=== PATIENT | female | born 1940 | race Caucasian/White ===

== ENCOUNTER 2017-11-25 22:51 | Emergency (ER) | payer MEDICARE, OTHER ==
[2017-11-25 23:29] LABS: BASO % 0.5 % (0.0-1.0); EOS # 0.3 10^3/uL (0.0-0.50); HEMATOCRIT 40.3 % (36.0-47.0); HEMOGLOBIN 13.5 g/dl (12.0-16.0); IMMATURE GRANULOCYTE % 0.3 % (0-3.0); LYMPH # 2.3 10^3/uL (1.5-4.5); LYMPH % 31.5 % (24.0-44.0); MEAN CORPUSCULAR HGB CONC 33.5 g/dl (32.0-36.5); MEAN CORPUSCULAR VOLUME 95.5 fl (80.0-96.0); MONO # 0.7 10^3/uL (0.0-0.8); MONO % 9.8 % (0.0-5.0); NEUTROPHILS # 3.9 10^3/uL (1.8-7.7); NEUTROPHILS % 53.9 % (36.0-66.0); PLATELET COUNT, AUTOMATED 194 10^3/uL (150-450); RED BLOOD COUNT 4.22 10^6/uL (4.00-5.40); RED CELL DISTRIBUTION WIDTH 12.1 % (11.5-14.5); WHITE BLOOD COUNT 7.3 10^3/uL (4.0-10.0)
[2017-11-25 23:36] LABS: BEDSIDE GLUCOSE 184 MG/DL (83-110)
[2017-11-25 23:44] LABS: INR 1.04; PROTHROMBIN TIME 13.7 SECONDS (12.4-14.5)
[2017-11-25 23:54] LABS: ANION GAP 5 MEQ/L (8-16); BLOOD UREA NITROGEN 27 MG/DL (7-18); CALCIUM LEVEL 9.5 MG/DL (8.8-10.2); CARBON DIOXIDE LEVEL 33 MEQ/L (21-32); CHLORIDE LEVEL 103 MEQ/L (98-107); CK-MB VALUE MASS 4.5 NG/ML (0.0-3.6); CPK CREATINE PHOSPHOKINASE 111 U/L (26-192); CREATININE FOR GFR 1.22 MG/DL (0.55-1.30); GLOMERULAR FILTRATION RATE 45.4 (>39); GLUCOSE, FASTING 185 MG/DL (70-100); MB/CK RELATIVE INDEX 4.05 (< OR =4); POTASSIUM SERUM 3.8 MEQ/L (3.5-5.1); SODIUM LEVEL 141 MEQ/L (136-145); TROPONIN I < 0.02 NG/ML (< 0.10)
[2017-11-25] MEDS ORDERED: ALTEPLASE 100MG INJ (J2997) As Ordered (23:54)
== END 2017-11-26 01:14 | disposition short-term general hospital (02) ==
LOC: M ED 22:51
DX: I63.9 Cerebral infarction, unspecified (principal); I10 Essential (primary) hypertension; I25.10 Atherosclerotic heart disease of native coronary artery without angina pectoris; Z95.5 Presence of coronary angioplasty implant and graft; Z79.899 Other long term (current) drug therapy; Z79.01 Long term (current) use of anticoagulants; Z79.890 Hormone replacement therapy
CPT/HCPCS: 71045

== ENCOUNTER → 2017-12-08 | Outpatient (REF) | payer MEDICARE, OTHER ==
[2017-12-08 13:28] LABS: HEMATOCRIT 38.5 % (36.0-47.0); HEMOGLOBIN 13.2 g/dl (12.0-16.0); MEAN CORPUSCULAR HEMOGLOBIN 31.8 pg (27.0-33.0); MEAN CORPUSCULAR HGB CONC 34.3 g/dl (32.0-36.5); MEAN CORPUSCULAR VOLUME 92.8 fl (80.0-96.0); PLATELET COUNT, AUTOMATED 339 10^3/uL (150-450); RED BLOOD COUNT 4.15 10^6/uL (4.00-5.40); RED CELL DISTRIBUTION WIDTH 11.9 % (11.5-14.5); WHITE BLOOD COUNT 10.3 10^3/uL (4.0-10.0)
[2017-12-08 13:50] LABS: ANION GAP 12 MEQ/L (8-16); BLOOD UREA NITROGEN 21 MG/DL (7-18); CALCIUM LEVEL 9.1 MG/DL (8.8-10.2); CARBON DIOXIDE LEVEL 26 MEQ/L (21-32); CHLORIDE LEVEL 101 MEQ/L (98-107); CREATININE FOR GFR 0.77 MG/DL (0.55-1.30); GLOMERULAR FILTRATION RATE > 60.0 (>39); GLUCOSE, FASTING 253 MG/DL (70-100); POTASSIUM SERUM 4.4 MEQ/L (3.5-5.1); SODIUM LEVEL 139 MEQ/L (136-145); URIC ACID 2.2 MG/DL (2.6-6.0)
== END ==
DX: M25.572 Pain in left ankle and joints of left foot (principal)
CPT/HCPCS: 84550

== ENCOUNTER → 2017-12-13 | Outpatient (REF) ==
[2017-12-13 13:37] LABS: HEMATOCRIT 38.9 % (36.0-47.0); MEAN CORPUSCULAR HGB CONC 33.4 g/dl (32.0-36.5); MEAN CORPUSCULAR VOLUME 92.8 fl (80.0-96.0); PLATELET COUNT, AUTOMATED 388 10^3/uL (150-450); RED BLOOD COUNT 4.19 10^6/uL (4.00-5.40); RED CELL DISTRIBUTION WIDTH 11.7 % (11.5-14.5); WHITE BLOOD COUNT 9.7 10^3/uL (4.0-10.0)
[2017-12-13 14:03] LABS: ANION GAP 8 MEQ/L (8-16); BLOOD UREA NITROGEN 17 MG/DL (7-18); CARBON DIOXIDE LEVEL 30 MEQ/L (21-32); CHLORIDE LEVEL 100 MEQ/L (98-107); CREATININE FOR GFR 0.68 MG/DL (0.55-1.30); GLOMERULAR FILTRATION RATE > 60.0 (>39); GLUCOSE, FASTING 165 MG/DL (70-100); POTASSIUM SERUM 3.8 MEQ/L (3.5-5.1); SODIUM LEVEL 138 MEQ/L (136-145)
== END ==
DX: L03.90 Cellulitis, unspecified (principal)

== ENCOUNTER → 2018-01-10 | Outpatient (REF) | DX: I25.10 Atherosclerotic heart disease of native coronary artery without angina pectoris (principal) ==

== ENCOUNTER 2018-01-27 15:04 | Outpatient (RCR) | payer MEDICARE, OTHER | END 2018-02-23 | disposition home or self-care (01) | LOC: M ST 15:04 → M OT 02-07 13:43 → M PT 02-13 13:39 → M OT 02-15 13:28 → M PT 02-22 15:15 → M ST 02-01 12:49 → M OT 02-07 13:43 → M PT 02-13 13:39 → M OT 02-15 13:28 → M PT 02-22 15:15 | DX: Z51.89 Encounter for other specified aftercare (principal); I63.312 Cerebral infarction due to thrombosis of left middle cerebral artery; I69.351 Hemiplegia and hemiparesis following cerebral infarction affecting right dominant side; R47.01 Aphasia | CPT/HCPCS: 97110 ==

== ENCOUNTER 2018-03-06 12:52 | Outpatient (RCR) | payer MEDICARE, OTHER | END 2018-03-25 | LOC: M OT 12:52 → M PT 03-13 13:53 → M ST 03-15 13:00 → M OT 03-16 10:30 → M ST 03-21 13:39 → M OT 03-24 10:27 → M ST 03-15 13:00 → M OT 03-16 10:30 → M ST 03-23 10:22 → M OT 03-22 10:30 | DX: Z51.89 Encounter for other specified aftercare (principal); I63.312 Cerebral infarction due to thrombosis of left middle cerebral artery; I69.351 Hemiplegia and hemiparesis following cerebral infarction affecting right dominant side; I69.120 Aphasia following nontraumatic intracerebral hemorrhage | CPT/HCPCS: 97110 ==

== ENCOUNTER 2018-03-28 15:27 | Outpatient (RCR) | payer MEDICARE, OTHER | END 2018-04-25 | LOC: M OT 15:27 | DX: Z51.89 Encounter for other specified aftercare (principal); I63.312 Cerebral infarction due to thrombosis of left middle cerebral artery; I69.351 Hemiplegia and hemiparesis following cerebral infarction affecting right dominant side; I69.120 Aphasia following nontraumatic intracerebral hemorrhage | CPT/HCPCS: 97110 ==

== ENCOUNTER → 2018-04-05 | Outpatient (REF) | payer MEDICARE, OTHER | LOC: M LAB REF 13:24 | DX: N39.0 Urinary tract infection, site not specified (principal) | CPT/HCPCS: 87086 ==

== ENCOUNTER → 2019-04-25 | Outpatient (RCR) | payer MEDICARE, OTHER ==
[~2019-04-25] MED LIST: AMLO5TAB6 PO; ATEN25TA PO; BONI1TAB PO; CHLO125TA PO; ELIQ2.5T PO; GABA-845 PO; LEVO75TA4 PO; METF500T13 PO; SERT25TA85 PO; VALS1TAB68 PO; VITA200028 PO; ZANT150T40 PO
== END ==
LOC: M PT 04-04 14:31 → M ST 04-18 12:24 → M PT 12:08
PROVIDERS: ATTEND Nurse Practitioner Family
DX: Z51.89 Encounter for other specified aftercare (principal); I63.9 Cerebral infarction, unspecified; R13.10 Dysphagia, unspecified

== ENCOUNTER 2019-05-25 11:45 | Outpatient (RCR) | payer MEDICARE, OTHER | END 2019-05-26 | LOC: M PT 11:45 | PROVIDERS: ATTEND Nurse Practitioner Family | DX: Z51.89 Encounter for other specified aftercare (principal); I63.9 Cerebral infarction, unspecified; I69.391 Dysphagia following cerebral infarction ==

== ENCOUNTER 2019-06-22 15:15 | Outpatient (RCR) | payer MEDICARE, OTHER | END 2019-06-25 | LOC: M PT 15:15 | PROVIDERS: ATTEND Nurse Practitioner Family | DX: I63.9 Cerebral infarction, unspecified (principal) ==

== ENCOUNTER 2019-07-20 15:15 | Outpatient (RCR) | payer MEDICARE, OTHER | END 2019-07-26 | LOC: M PT 15:15 | PROVIDERS: ATTEND Nurse Practitioner Family | DX: I69.30 Unspecified sequelae of cerebral infarction (principal) ==

== ENCOUNTER → 2020-03-31 | Outpatient (REF) | payer MEDICARE, OTHER ==
[~2020-03-31] MED LIST changes: +ACET650T61 PO; +AMLO1TAB24 PO; -AMLO5TAB6 PO; +ATOR40TA75 PO; +AVAP75TA7 PO; +CIPR-250 PO; +D31000TA2 PO; +ECOT81TA5 PO; +FURO20TA2 PO; +JARD1TAB PO; +METO1TAB32 PO; +POTA8CAP10 PO; +SYNT50TA PO; +VITA200048 PO; +VITA500C24 PO
[2020-04-01 15:39] LABS: PERCENT SATURATION 33.5 % (13.2-45.0)
== END ==
LOC: M LAB REF 12:23
PROVIDERS: ATTEND Internal Medicine
DX: R74.8 Abnormal levels of other serum enzymes (principal)

== ENCOUNTER 2020-06-13 20:29 | Inpatient (IN) | payer MEDICARE, OTHER ==
[2020-06-13] VITALS (9 sets, daily range): BP systolic 123–181; BP diastolic 65–81
[~2020-06-13] VITALS: Ht 149.9 cm; Wt 47.6 kg
[~2020-06-13 20:29] MED LIST changes: -ACET650T61 PO; -ATOR40TA75 PO; -AVAP75TA7 PO; -CIPR-250 PO; -D31000TA2 PO; -ECOT81TA5 PO; -FURO20TA2 PO; -JARD1TAB PO; -METO1TAB32 PO; -POTA8CAP10 PO; -SYNT50TA PO; -VITA200048 PO; -VITA500C24 PO
[2020-06-13] MEDS ORDERED: SYNT50TA PO (21:00)
[2020-06-13] MEDS ORDERED: METO1TAB32 PO (21:00)
[2020-06-13] MEDS ORDERED: POTA8CAP10 PO (21:00)
[2020-06-13] MEDS ORDERED: ECOT81TA5 PO (21:00)
[2020-06-13] MEDS ORDERED: JARD1TAB PO (21:00)
[2020-06-13] MEDS ORDERED: VITAMIN D 1,000 INTERNATIONAL UNITS TABLET PO SCH (21:00)
[2020-06-13] MEDS ORDERED: HumaLOG INSULIN (NovoLOG) PER UNIT SC SCH (21:00)
[2020-06-13] MEDS ORDERED: VITA500C24 PO (21:00)
[2020-06-13] MEDS ORDERED: VITA200048 PO (21:00)
[2020-06-13] MEDS ORDERED: ACET650T61 PO (21:00)
[2020-06-13] MEDS ORDERED: AVAP75TA7 PO (21:00)
[2020-06-13] MEDS ORDERED: METF500T13 PO (21:00)
[2020-06-13] MEDS ORDERED: FURO20TA2 PO (21:00)
[2020-06-13] MEDS ORDERED: ATOR40TA75 PO (21:00)
--- NOTE | 2020-06-13 21:15 | REPVR ---
PROCEDURE INFORMATION: Exam: CT Head Without Contrast Exam date and time: 06/13/2020 8:57 PM Age: 80 years old Clinical indication: Weakness, facial; Additional info: Neuro symptoms TECHNIQUE: Imaging protocol: Computed tomography of the head without contrast. Radiation optimization: All CT scans at this facility use at least one of these dose optimization techniques: automated exposure control; mA and/or kV adjustment per patient size (includes targeted exams where dose is matched to clinical indication); or iterative reconstruction. COMPARISON: CT Head without contrast 11/25/2017 11:00 PM FINDINGS: Brain: Moderately advanced cerebral atrophy. Moderate cerebellar atrophy. Patchy low-density in the periventricular white matter extending into lynn radiata and centrum semiovale bilaterally. Subcortical infarct left frontal lobe. No hemorrhage. No mass effect. Midline structures intact. Ventricles: No ventriculomegaly. Bones/joints: Unremarkable. No acute fracture. Paranasal sinuses: Visualized sinuses are unremarkable. No fluid levels. Mastoid air cells: Visualized mastoid air cells are well aerated. Soft tissues: Unremarkable. IMPRESSION: 1. No acute findings. 2. Moderately advanced cerebral atrophy and chronic microvascular ischemic change within the deep white matter. These findings have progressed when compared with the previous study. Electronically signed by: Radha Wilson On 06/13/2020 21:15:38 PM
[2020-06-13] MEDS ORDERED: LABETALOL 100MG/20ML VIAL IV STA (21:18)
[2020-06-13 21:32] LABS: BASO % 0.2 % (0.0-1.0); EOS # 0.2 10^3/uL (0.0-0.5); EOS % 0.9 % (0.0-3.0); HEMATOCRIT 44.6 % (36.0-47.0); HEMOGLOBIN 15.1 g/dl (12.0-15.5); LYMPH # 1.1 10^3/uL (1.5-5.0); LYMPH % 6.8 % (24.0-44.0); MEAN CORPUSCULAR HGB CONC 33.9 g/dl (32.0-36.5); MEAN CORPUSCULAR VOLUME 97.6 fl (80.0-96.0); MONO # 0.8 10^3/uL (0.0-0.8); MONO % 4.8 % (0.0-5.0); NEUTROPHILS # 14.1 10^3/uL (1.5-8.5); NEUTROPHILS % 86.9 % (36.0-66.0); PLATELET COUNT, AUTOMATED 198 10^3/uL (150-450); RED BLOOD COUNT 4.57 10^6/uL (4.00-5.40); WHITE BLOOD COUNT 16.2 10^3/uL (4.0-10.0)
[2020-06-13 21:36] LABS: INR 1.18; PROTHROMBIN TIME 15.3 SECONDS (12.5-14.3)
[2020-06-13 21:37] LABS: PARTIAL THROMBOPLASTIN TIME 26.8 SECONDS (24.2-38.5)
[2020-06-13 21:41] LABS: CK-MB VALUE MASS 1.9 NG/ML (<3.6); MB/CK RELATIVE INDEX 3.17 (< OR =4); TROPONIN I 0.02 NG/ML (< 0.10)
--- NOTE | 2020-06-13 22:09 | REPVR ---
PROCEDURE INFORMATION: Exam: XR Chest, 1 View Exam date and time: 06/13/2020 9:18 PM Age: 80 years old Clinical indication: Other: CVA TECHNIQUE: Imaging protocol: XR of the chest Views: 1 view. COMPARISON: CR PORTABLE CHEST X-RAY 11/25/2017 11:21 PM FINDINGS: Tubes, catheters and devices: External monitoring devices present. Lungs: Unremarkable. No consolidation. Pleural space: Unremarkable. No pleural effusion. No pneumothorax. Heart/Mediastinum: Mild enlargement of cardiac silhouette. Vasculature: Ectasia of the thoracic aorta. Bones/joints: Apparent S-shaped scoliosis of thoracolumbar spine Degenerative changes noted of the right glenohumeral joint with superior migration of the humeral head and large marginal osteophytes. IMPRESSION: No acute findings Electronically signed by: Radha Wilson On 06/13/2020 22:09:16 PM
[2020-06-13] MEDS: METOPROLOL 5 MG/5 ML VIAL IV SCH ×3 (22:20→22:52)
[2020-06-13] MEDS ORDERED: GLUCOSE 4GM CHEW TABLET PO PRN (23:30)
[2020-06-13] MEDS ORDERED: DEXTROSE 50% 50 ML SYRINGE IV PRN (23:30)
[2020-06-13] MEDS ORDERED: ACETAMINOPHEN TAB 650MG DOSE (2X325MG) PO PRN (23:30)
[2020-06-13] MEDS ORDERED: GLUCAGON INJ 1MG VIAL SC PRN (23:30)
[2020-06-13] MEDS ORDERED: D31000TA2 PO (23:33)
[2020-06-14] VITALS: BP 147/76
[2020-06-14 00:15] VITALS: BP 146/80
[2020-06-14 00:40] VITALS: BP 143/82
[2020-06-14] MEDS ORDERED: diphenhydrAMINE 25MG CAP PO PRN (01:15)
--- NOTE | 2020-06-14 02:33 | HPEPDOC ---
General Date of Admission Jun 13, 2020 at 23:25 Date of Service: Jun 14, 2020 Attending Physician: ALBANIA REILLY MD Chief Complaint The patient is a 80-year-old female admitted with a reason for visit of Cva, Hypertensive Emergency. 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 Her son was present when he symptoms begun and he suspected that she may be having a stroke and brought her to the ED. In the ED, her symptoms persisted and initial BP was 200/100s and in Afib with R VR. She was given metop 5mg IV with improvement of her HR to 90s and while in the ED, her symptoms were noted to improve drastically and BP normalized without further intervention. She had a head CT that showed no acute intracranial pathology with mild cerebral atrophy and chronic microvascular ischemic changes within the deep white matter while a CXR so no acute cardiopulmonary pathology. WBC was 16.2, hgb 15.1, platelets 198, EKG non ischemic with Afib, troponin negative, Na 139, K 3.5, BUN 26, Cr 1, glucose 176. By the time of my evaluation her symptoms had mostly resolved with baseline mild R sided deficits with a mild R facial droop and slight slurring of her words but coherent. She is now being admitted to medicine for a TIA. Home Medications Scheduled Apixaban (Eliquis) 2.5 Mg Tab, 2.5 MG PO BID, (Reported) Ascorbic Acid (Vitamin C) 500 Mg Capsule, 500 MG PO DAILY, (Reported) Aspirin (Ecotrin) 81 Mg Tablet.dr, 81 MG PO DAILY, (Reported) Atorvastatin Calcium (Atorvastatin Calcium) 40 Mg Tablet, 40 MG PO QPM, (Reported) Cholecalciferol (Vitamin D3) (Vitamin D3) 1,000 Unit Tablet, 2,000 UNITS PO QPM, (Reported) Empagliflozin (Jardiance) 10 Mg Tablet, 10 MG PO QPM, (Reported) Furosemide (Furosemide) 20 Mg Tablet, 20 MG PO DAILY, (Reported) Irbesartan (Avapro) 75 Mg Tablet, 75 MG PO DAILY, (Reported) Levothyroxine Sodium (Synthroid) 50 Mcg Tablet, 50 MCG PO DAILY, (Reported) Metformin HCl (Metformin HCl) 500 Mg Tablet, 500 MG PO QPM, (Reported) Metoprolol Succinate (Metoprolol Succinate) 25 Mg Tab.er.24h, 25 MG PO DAILY, (Reported) Potassium Chloride (Potassium Chloride) 8 Meq Capsule.er, 8 MEQ PO DAILY, (Reported) Scheduled PRN Acetaminophen (Tylenol Arthritis) 650 Mg Tablet.er, 650 MG PO Q8H PRN for PAIN, (Reported) Allergies Coded Allergies: No Known Allergies (Unverified , 11/25/17) Past Medical History Medical History Prior CVA in 2017 with residual mild R sided weakness and uses at cane at baseline CAD s/p remote PCI History of kidney stones Afib on eliquis Surgical History prior PCI Family History Significant Family History: No pertinent family hx Social History * Smoker: Denies Alcohol: Denies Drugs: denies Recent Travel/Sick Contacts: Denies: Recent travel, Recent sick contacts Psychosocial History: No pertinent psych hx Lives at home Uses cane at baseline A-FIB/CHADSVASC A-FIB History Current/History of A-Fib/PAF?: Yes Current PO Anticoag Therapy: Yes Treatment Treatment ordered: Apixaban Review of Systems Constitutional: Denies: Chills, Fever, Night Sweats Eyes: Denies: Pain, Vision change ENT: Denies: Head Aches, Ear Pain, Dysphagia Skin: Denies: Rash, Lesions, Breakdown Pulmonary: Denies: Dyspnea, Cough Cardiovascular: Denies: Chest Pain, Palpitations, Orthopnea, Paroxysmal Noc. Dyspnea, Lt Headedness Gastrointestinal: Denies: Nausea, Vomiting, Abdominal Pain, Diarrhea Genitourinary: Denies: Dysuria, Frequency, Incontinence, Retention Hematologic: Denies: Bruising, Bleeding Excessively Endocrine: Denies: Polydipsia, Polyphagia, Polyuria, Heat Intolerance, Cold Intolerance, Other Endocrine Sx Musculoskeletal: Denies: Neck Pain, Back Pain, Joint Pain, Muscle Pain, Spasms Neurological: Reports: Weakness (Acute on chronic R sided weakness), Incoordination, Change in speech (slurring) Psych: Reports: Mood Normal; Denies: Depression, Memory Issues Physical Examination General Exam: Positive: Alert, No Acute Distress Eye Exam: Positive: PERRLA, Conjunctiva & lids normal, EOMI; Negative: Sclera icteric ENT Exam: Positive: Atraumatic, Mucous membr. moist/pink, Pharynx Normal Neck Exam: Positive: Supple; Negative: JVD, thyromegaly Chest Exam: Positive: Clear to auscultation, Normal air movement Heart Exam: Positive: Rate Normal, Irregular Rhythm, Normal S1, Normal S2; Negative: Murmurs, Rubs Telemetry: Positive: Atrial fibrillation Abdomen Exam: Positive: Normal bowel sounds, Soft; Negative: Tenderness, Hepatospenomegaly Extremity Exam: Positive: Normal pulses; Negative: Clubbing, Cyanosis, Edema, Tenderness, Swelling Skin Exam: Positive: Nl turgor and temperature; Negative: Breakdown, Lesion Neuro Exam: Positive: Strength at 5/5 X4 ext ( mild R sided weakness 4/5 strength in RUE), Sensation Intact, Cranial Nerves 3-12 NL; Negative: Normal Speech (slight slurring but much clearer, coherent) Psych Exam: Positive: Mental status NL, Mood NL, Oriented x 3 Vital Signs Vital Signs Date Time Temp Pulse Resp B/P (MAP) Pulse Ox O2 Delivery O2 Flow Rate FiO2 06/14/20 00:16 99 95 06/14/20 00:15 146/80 06/13/20 21:20 98.8 16 Room Air Laboratory Data Labs 24H Laboratory Tests 2 06/13/20 21:02: Immature Granulocyte % (Auto) 0.4, Neutrophils (%) (Auto) 86.9H, Lymphocytes (%) (Auto) 6.8L, Monocytes (%) (Auto) 4.8, Eosinophils (%) (Auto) 0.9, Basophils (%) (Auto) 0.2, Neutrophils # (Auto) 14.1H, Lymphocytes # (Auto) 1.1L, Monocytes # (Auto) 0.8, Eosinophils # (Auto) 0.2, Basophils # (Auto) 0.0, Nucleated Red Blood Cells % (auto) 0.0, Prothrombin Time 15.3H, Prothromb Time International Ratio 1.18, Activated Partial Thromboplast Time 26.8, Total Creatine Kinase 60, Creatine Kinase MB 1.9, Creatine Kinase MB Relative Index 3.17, Troponin I 0.02 06/13/20 21:04: POC Glucose (Misc Panel) 176H, POC Sodium (Misc Panel) 139, POC Potassium (Misc Panel) 3.5, POC Chloride (Misc Panel) 100, POC Total CO2 (Misc Panel) 26.0, POC Blood Urea Nitrogen (Misc Panel 26, POC Ionized Calcium (Misc Panel) 4.9, POC Creatinine (Misc Panel) 1.0, POC Hematocrit (Misc Panel) 46.0 06/13/20 21:54: Bedside Glucose (Misc Panel) 169H, POC Prothrombin Time (Misc) 14.9H, POC INR (Misc) 1.3 06/14/20 01:02: Bedside Glucose (Misc Panel) 221H CBC/BMP Laboratory Tests 06/13/20 21:02 Assessment/Plan 80 yo W with a 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 TIA with a history of remote CVA: -CT head without acute intracranial abnormalities -MRI/MRA brain w/o contrast -carotid US --Q4H neuro checks -telemetry -TTE w/ bubble study -continue eliquis -PT/OT eval Afib with RVR: improved -s/p metop IV x 1 -continue home metop succinate 25mg QD -continue 2.5mg eliquis BID -telemetry Hypertensive urgency: resolved -continue home metop succinate Leukocytosis: suspect it to be reactive with no fever or reported symptoms -will monitor for now -CXR without acute pathology -UA CAD: no evidence of ACS -EKG non ischemic, telemetry with Afib, now rate controlled, troponin negative DVT ppx: eliquis Plan / VTE VTE Prophylaxis Ordered?: Yes ALBANIA REILLY MD Jun 14, 2020 02:33
[2020-06-14 06:00] VITALS: BP 141/84
[2020-06-14] MEDS ORDERED: LEVOTHYROXINE 50MCG TABLET (0.05MG) PO SCH (06:00)
[2020-06-14] MEDS: HumaLOG INSULIN (NovoLOG) PER UNIT SC SCH ×2 (07:49→11:54)
[2020-06-14 07:51] VITALS: BP 142/85
[2020-06-14 08:30] LABS: HEMOGLOBIN 13.4 g/dl (12.0-15.5); MEAN CORPUSCULAR HEMOGLOBIN 33.5 pg (27.0-33.0); MEAN CORPUSCULAR HGB CONC 34.4 g/dl (32.0-36.5); MEAN CORPUSCULAR VOLUME 97.5 fl (80.0-96.0); PLATELET COUNT, AUTOMATED 167 10^3/uL (150-450); WHITE BLOOD COUNT 19.9 10^3/uL (4.0-10.0)
[2020-06-14 08:39] LABS: CALCIUM LEVEL 9.5 MG/DL (8.8-10.2); CREATININE FOR GFR 1.11 MG/DL (0.55-1.30); GLOMERULAR FILTRATION RATE 50.2 (>32); MAGNESIUM LEVEL 2.1 MG/DL (1.8-2.4)
[2020-06-14] MEDS ORDERED: FUROSEMIDE 20 MG TAB PO SCH (09:00)
[2020-06-14] MEDS ORDERED: ASCORBIC ACID 500 MG TAB PO SCH (09:00)
[2020-06-14] MEDS ORDERED: APIXABAN 2.5 MG TAB (ELIQUIS) PO SCH (09:00)
[2020-06-14] MEDS ORDERED: ASPIRIN 81 MG ENTERIC TAB PO SCH (09:00)
[2020-06-14] MEDS ORDERED: METOPROLOL SUCC *XL* 25MG TAB (TopROL *XL*) PO SCH (09:00)
[2020-06-14] MEDS ORDERED: POTASSIUM CHLORIDE 10 MEQ SR TABLET PO SCH (09:00)
[2020-06-14] MEDS ORDERED: cefTRIAXone SOD 1 GM in D5W MINI-BAG PLUS 50 ML IV SCH (11:00)
--- NOTE | 2020-06-14 12:12 | ECGEPIP ---
[facility] - ED Test Date: 2020-06-13 Pat Name: HARJINDER SU Department: Room: A5168-52 Gender: Female Gun [employer]: ROMAN : 1940 Requested By: JANESSA Castro Order Number: [id number] Reading MD: James Castro Measurements Intervals [place] Rate: 111 P: AR: 0 QRS: -53 QRSD: 91 T: 110 QT: 321 QTc: 438 Interpretive Statements SINUS TACHYCARDIA ANTERIOR INFARCT, OLD INFERIOR MYOCARDIAL INFARCTION, PROBABLY OLD WITH POSTERIOR EXTENSION MODERATE T-WAVE ABNORMALITY, CONSIDER LATERAL ISCHEMIA RHYTHM/RATE CHANGE COMPARED TO 11/25/17 Electronically Signed on 06-14-2020 12:12:48 EDT by James Castro
[2020-06-14 14:00] VITALS: BP 138/82
[2020-06-14] MEDS ORDERED: CIPR-250 PO ×2 (14:46→16:54)
--- NOTE | 2020-06-14 16:36 | REPVR ---
PROCEDURE INFORMATION: Exam: MR Head Without Contrast Exam date and time: 06/14/2020 4:28 PM Age: 80 years old Clinical indication: Speech disturbance; Patient HX: Slurred speech HX TIA TECHNIQUE: Imaging protocol: MR of the head without contrast. COMPARISON: CT Head without contrast 06/13/2020 8:53 PM FINDINGS: Brain: Nonspecific T2 hyperintensities of the periventricular and deep subcortical white matter, most likely secondary to chronic small vessel ischemic change. No evidence of acute intracranial hemorrhage or extra-axial fluid collection. No evidence of mass effect or midline shift. No restricted diffusion to suggest acute infarct. Ventricles: Mild prominence of the ventricles and sulci, likely attributed to parenchymal volume loss. Bones/joints: Unremarkable. Sinuses: Unremarkable. Mastoid air cells: No mastoid effusion. Orbits: Unremarkable. Soft tissues: Unremarkable. IMPRESSION: 1. No acute intracranial pathology. 2. Other chronic findings, as above. Electronically signed by: Ron Braxton On 06/14/2020 16:35:51 PM
--- NOTE | 2020-06-14 16:39 | REPVR ---
PROCEDURE INFORMATION: Exam: MR Angiogram Head Without Contrast, Arteries Exam date and time: 06/14/2020 4:28 PM Age: 80 years old Clinical indication: Speech disturbance; Patient HX: Slurred speech HX TIA TECHNIQUE: Imaging protocol: MR angiogram head without contrast. Exam focused on the arteries. 3D rendering (Not supervised by radiologist): MIP and/or 3D reconstructed images were created by the technologist. COMPARISON: CT Head without contrast 06/13/2020 8:53 PM FINDINGS: ANTERIOR CIRCULATION: Right internal carotid artery: Intracranial segment is patent with no significant stenosis. No aneurysm. Right middle cerebral artery: No occlusion or significant stenosis. No aneurysm. Right anterior cerebral artery: No occlusion or significant stenosis. No aneurysm. Left internal carotid artery: Intracranial segment is patent with no significant stenosis. No aneurysm. Left middle cerebral artery: No occlusion or significant stenosis. No aneurysm. Left anterior cerebral artery: No occlusion or significant stenosis. No aneurysm. POSTERIOR CIRCULATION: Right vertebral artery: Near complete absence of flow related enhancement within the mid to superior portions of the intracranial right vertebral artery. Left vertebral artery: Complete absence of flow related enhancement within the intracranial left vertebral artery. Basilar artery: Diminished flow related enhancement within the basilar artery. Right posterior cerebral artery: Patent and type right posterior cerebral artery. No aneurysm. Left posterior cerebral artery: Patent and type left posterior cerebral artery. No aneurysm. IMPRESSION: Combination of complete absence of flow related enhancement in the left intracranial vertebral artery, near complete absence of flow related enhancement in the mid to superior right vertebral artery, as well as diminished flow related enhancement within the basilar artery is concerning for possible areas of severe stenosis and/or occlusion involving these posterior circulation arteries, however differential also includes anatomically small caliber vessels due to presence of prominent bilateral type supervisor powder and primer canning. Recommend follow-up CTA head. Electronically signed by: Ron Braxton On 06/14/2020 16:38:58 PM
--- NOTE | 2020-06-14 18:54 | REPVR ---
PROCEDURE INFORMATION: Exam: US Duplex Bilateral Extracranial Arteries Exam date and time: 06/14/2020 3:38 PM Age: 80 years old Clinical indication: Other: TIA TECHNIQUE: Imaging protocol: Real-time Duplex ultrasound scan of the bilateral carotid and vertebral arteries combining ayon scale, color Doppler and spectral waveform analysis. Bilateral exam. COMPARISON: CT Head without contrast 06/13/2020 8:53 PM FINDINGS: Right common carotid artery: Unremarkable. No occlusion or stenosis. Waveforms are normal. Right internal carotid artery: Mild atherosclerotic changes.. No occlusion or stenosis. Waveforms are normal. Right ICA/CCA ratio: Within normal limits. 2.28 Right external carotid artery: No stenosis in the origin. Right vertebral artery: Unremarkable. Antegrade flow. Left common carotid artery: Unremarkable. No occlusion or stenosis. Waveforms are normal. Left internal carotid artery: Mild atherosclerotic changes.. No occlusion or stenosis. Waveforms are normal. Left ICA/CCA ratio: Within normal limits. 1.83 Left external carotid artery: No stenosis in the origin. Left vertebral artery: Biphasic flow. IMPRESSION: 1. Mild bilateral atherosclerotic changes in the proximal internal carotid arteries resulting in an under 50% or mild stenosis bilaterally. 2. Normal flow in the right vertebral artery. Biphasic flow in the left vertebral artery may indicate intermittent subclavian steal. 3. Decreased velocities demonstrated in the right and left carotid arteries may be related to low cardiac output. Clinical correlation suggested. REFERENCES: SRU CRITERIA. The degree of internal carotid artery stenosis is based on criteria defined by the Society of Radiologists in Ultrasound (SRU). Normal is no stenosis. Mild is less than 50% stenosis. Moderate is 50-69% stenosis. Severe is greater than 69% stenosis to near occlusion. Near occlusion is a markedly narrowed lumen. Total occlusion is no detectable patent lumen. Electronically signed by: Reno Clark On 06/14/2020 18:54:34 PM
[2020-06-14] MEDS ORDERED: ATORVASTATIN 20 MG TAB PO SCH (21:00)
[2020-06-14] MEDS ORDERED: VITAMIN D 1,000 INTERNATIONAL UNITS TABLET PO SCH (21:00)
--- NOTE | 2020-06-17 07:17 | ECHO ---
DATE OF PROCEDURE: 06/14/2020 Gender: Male Height: 148 cm Weight: 46 kg REFERRING PHYSICIAN: Dr. Barber INDICATION: Transient ischemic attack (TIA), hypertensive urgency. MEASUREMENTS: IVS 0.9 cm LV 3.2 cm LVPW 1.0 cm LA 3.7 cm Aorta 3.2 cm RV 2.0 IVC 1.8 cm Mitral E wave velocity 79 Mitral A wave velocity 60 E prime septal 5.3 E prime lateral 5.9 FINDINGS: This study is of good technical quality. Patient is in sinus rhythm. Left ventricle is normal size and systolic function. Estimated LVEF 65% to 70%. Right ventricle appears normal. Both atria appear normal. Aortic valve is minimally sclerotic, but has three cusps and preserved mobility. There are also minimal degenerative abnormalities of the mitral valve with mitral annular calcifications. Mobility of leaflets is preserved. Tricuspid valve appears normal. Pulmonic valve was not well seen. No pericardial effusion is noted. Inferior vena cava is normal size. Aortic root appears normal. Aortic arch and abdominal aorta were not well seen. Doppler interrogation of the aortic valve reveals no stenosis or insufficiency. There is trace mitral and trace tricuspid insufficiency. Calculated pulmonary artery pressure is within normal limits. Mitral inflow pattern, tissue Doppler imaging of mitral annulus revealed grade 2 diastolic dysfunction. Injection of agitated saline reveals no evidence for intracardiac shunt - negative "bubble study. CONCLUSIONS: 1. Study is of good technical quality. Patient is in sinus rhythm. 2. Normal left ventricle (LV) size with preserved left ventricle (LV) systolic function and likely grade 2 diastolic dysfunction. 3. No significant valvular disease. 4. Normal central venous pressure and likely normal pulmonary artery pressure. 5. Negative bubble study. [facility]
--- NOTE | 2020-06-26 10:18 | IPN ---
DATE: 06/14/2020 Patient seen and examined at the bedside. Chart has been reviewed. Denies any upper or lower extremity weakness, paresthesias. No expressive aphasia. No changes in vision. No difficulty finding words. CT head negative for acute cerebrovascular accident (CVA). VITAL SIGNS: Temperature 97.9, pulse 94, respiratory rate 16, blood pressure 141/84, 97% on room air. Admission blood pressure 210/104. GENERAL: Awake, alert, oriented to person, place, and time, answering questions appropriately. No facial asymmetry. Tongue is midline. Speaks in full sentences. Speech is fluent. No conversational dyspnea. No tripod positioning. LUNGS: Clear to auscultation. No wheezing, rales, or rhonchi. HEART: S1, S2, sinus rhythm. ABDOMEN: Soft, nontender, nondistended. Positive bowel sounds. EXTREMITIES: No cyanosis, clubbing, or pitting edema. White count 19.9, hemoglobin 13, hematocrit 39, platelet count 167. Sodium 138, potassium 4, chloride 102, bicarbonate 26, BUN 25, creatinine 1.1, glucose 229. Urinalysis: Cloudy. Glucose 3+. Positive nitrites. Leukocyte esterase 2+, 81 WBC, 1+ bacteremia. IMAGING STUDIES: Chest x-ray June 13: No acute findings. CT of the head: No acute CVA. Moderately advanced cerebral atrophy and chronic microvascular ischemic change have progressed when compared with previous study. ASSESSMENT AND PLAN: An 80-year-old female, admitted due to: 1. Hypertensive urgency. 2. History of coronary artery disease (CAD) with residual mild right-sided weakness. Uses a cane at baseline. 3. History of CAD, status post percutaneous coronary intervention (PCI). 4. History of atrial fibrillation, on chronic Eliquis. 5. Urinary tract infection. PLAN: Patient has an MRI/MRA, physical therapy (PT)/occupational therapy (OT), acute rehabilitation unit (ARU), neurologic checks. Blood pressure is doing well. currently on Lasix, Toprol. Adjust if needed. Await urine culture result. If cleared by therapy, may be discharged home today. [facility]
--- NOTE | 2020-06-30 11:54 | DS ---
DATE OF ADMISSION: 06/14/2020 DATE OF DISCHARGE: 06/14/2020 PRIMARY DISCHARGE DIAGNOSES: * Hypertensive urgency. * CVA ruled out. * History of CAD, remote PCI. * History of atrial fibrillation on chronic Eliquis, compliant with Eliquis, has not missed any doses. * History of kidney stones. * Urinary tract infection present on admission. * Uncontrolled diabetes. DISCHARGE MEDICATIONS: * Cipro 250 b.i.d. for three days. * Acetaminophen 650 q.8 as needed. * Eliquis 2.5 b.i.d. * Vitamin C 500 mg daily. * Aspirin 81 daily. * Atorvastatin 40 daily. * Vitamin D 2,000 units daily. * Jardiance 10 mg q.p.m. * Lasix 20 daily. * Irbesartan 75 daily. * Synthroid 50 daily. * Metformin 500 daily. * Metoprolol 25 daily. * Potassium 8 mEq daily. HOSPITAL COURSE: This is an 80-year-old female compliant with her Eliquis who presents to the emergency room with complaints of slurred speech. Found to have hypertensive urgency with systolic blood pressure of 200 and diastolic of 100 with atrial fibrillation with RVR. Patient responded to metoprolol 5 mg IV with heart rate decreasing to 90. She was evaluated with CT of the head which showed mild cerebellar atrophy and chronic microvascular ischemic changes within deep white matter. Chest x-ray had no cardiopulmonary pathology. White count was 16,000. Patient was found to have abnormal urinalysis and given intravenous ceftriaxone. Urine culture is pending. Patient had no fever or chills. Denies any dysuria, urgency, frequency, or flank pain. Patient passed home safety evaluation. MRI of the brain was negative. 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 Differential includes anatomically small caliber vessels due to presence of prominent bilateral -type food cart attendant. Recommend follow up CTA of the head. Since the patient has resolution of her clinical symptoms and CT of the head and MRI of the brain are negative for acute CVA, the family decided not to pursue further imaging studies as patient is currently back to baseline. She will follow up with her primary care physician and neurologist as outpatient within 5-7 days of hospital discharge. PHYSICAL EXAMINATION: Temperature 98.6, pulse 60, respiratory rate 18, blood pressure 138/82, 95% on room air. Generally: Face is symmetric. Tongue is midline. Awake, alert, oriented, conversing appropriately. Patient has no expressive aphasia. No word finding difficulties. Face is symmetric. Tongue is midline. No pronator drift, horizontal or vertical nystagmus. Motor function is 5/5 in all four extremities. No sensory disturbance. Lungs are clear to auscultation. No wheezing, rales, or rhonchi. Heart: S1 and S2, irregularly irregular. Abdomen is soft, nontender, nondistended. Positive bowel sounds. No CVA tenderness. Extremities: No cyanosis, clubbing, or pitting edema. LABORATORY DATA: White count 19.9, hemoglobin 13, hematocrit 39, platelet count 167. Sodium 138, potassium 4, chloride 102, bicarb 26, BUN 25, creatinine 1.11, glucose 229, calcium 9.5, magnesium 2.1. Troponin 0.02. Microbiology: Urine culture is pending. Imaging study 06/13/2020, CT of the head, no acute findings, moderate advanced cerebral atrophy and chronic microvascular ischemic change within the deep white matter. Chest x-ray: No acute cardiopulmonary disease. MRI of the brain: No acute CVA. MRA of the brain: Differential includes presence of prominent bilateral -type SUPPORT WORKER versus complete absence of flow in the left intracranial vertebral artery into the mid superior right vertebral artery with basal artery possible stenosis or occlusion of the posterior circulation arteries. Recommend follow up CT of the head. DISCHARGE INSTRUCTIONS: Patient is to have immediate follow up with her neurologist to determine the need for a CVA. Patient clinically is back to baseline. Has no neurologic defects and currently has a normal MRI of the brain without acute CVA. TIME SPENT ON DISCHARGE: 30 minutes. [facility]
== END 2020-06-14 17:18 | disposition home or self-care (01) | DRG 309 ==
LOC: M ED 20:29 → M ED INP 23:25 → ENRESERV 23:55 → M MSPAV 06-14 00:26
PROVIDERS: ADMIT Internal Medicine; ATTEND Internal Medicine
DX: I48.91 Unspecified atrial fibrillation (principal); G45.9 Transient cerebral ischemic attack, unspecified; I69.351 Hemiplegia and hemiparesis following cerebral infarction affecting right dominant side; I16.0 Hypertensive urgency; Z79.82 Long term (current) use of aspirin; Z79.899 Other long term (current) drug therapy; Z79.01 Long term (current) use of anticoagulants; I25.10 Atherosclerotic heart disease of native coronary artery without angina pectoris; Z87.442 Personal history of urinary calculi; D72.829 Elevated white blood cell count, unspecified

== ENCOUNTER → 2021-03-10 | Outpatient (REF) | payer MEDICARE, OTHER ==
[~2021-03-10] MED LIST changes: +ACET650T61 PO; +ATOR40TA75 PO; +AVAP75TA7 PO; +CIPR-250 PO; +D31000TA2 PO; +ECOT81TA5 PO; +FURO20TA2 PO; +GABA-283 PO; -GABA-845 PO; +JARD1TAB PO; +METO1TAB32 PO; +POTA8CAP10 PO; +SYNT50TA PO; +VITA200048 PO; +VITA500C24 PO
== END ==
LOC: M LAB REF 12:18
PROVIDERS: ATTEND Internal Medicine
DX: R30.0 Dysuria (principal)

== ENCOUNTER → 2021-04-21 | Outpatient (REF) | payer MEDICARE, OTHER | LOC: M LAB REF 17:12 | PROVIDERS: ATTEND Internal Medicine | DX: R35.0 Frequency of micturition (principal) ==

== ENCOUNTER → 2021-08-06 | Outpatient (CLI) | payer MEDICARE, OTHER ==
--- NOTE | 2021-08-06 11:12 | REP ---
INDICATION: CHF. COMPARISON: 06/13/2020 TECHNIQUE: Two views of the chest were obtained. FINDINGS: The extensive scoliosis is again noted. No acute parenchymal opacification or effusion is currently present. The heart is not enlarged and no evidence of pulmonary vascular redistribution is identified. IMPRESSION: Extensive levorotary scoliosis of the thoracolumbar spine. 2. Unremarkable chest films with no evidence of failure at this time. <Electronically signed by Logan Huston > 08/06/21 [id number]
[2021-08-06 16:13] LABS: ALBUMIN 3.7 GM/DL (3.2-5.2); CALCIUM LEVEL 9.7 MG/DL (8.8-10.2); CREATININE FOR GFR 1.19 MG/DL (0.55-1.30); GLOMERULAR FILTRATION RATE 46.2 (>32); PHOSPHORUS LEVEL 3.1 MG/DL (2.5-4.9); POTASSIUM SERUM 4.1 MEQ/L (3.5-5.1)
== END ==
LOC: M WUC 10:47
PROVIDERS: ATTEND Internal Medicine Cardiovascular Disease
DX: M41.25 Other idiopathic scoliosis, thoracolumbar region (principal); I50.32 Chronic diastolic (congestive) heart failure

== ENCOUNTER → 2021-08-06 | Outpatient (CLI) | payer MEDICARE, OTHER ==
--- NOTE | 2021-08-06 12:54 | REP ---
INDICATION: PAIN IN LEFT LEG-WILL CALL FOR NEW STAT ORDER. COMPARISON: None TECHNIQUE: Multiple ultrasonographic images of the deep venous structures of the bilateral thighs were obtained from the level of the common femoral vein to the popliteal vein in the longitudinal and transverse scan planes along with Doppler interrogation and color flow Doppler imaging. Calf veins are also examined with compression ultrasound. FINDINGS: There is no abnormal echogenic material seen within any of the visualized deep venous structures from the groin through the popliteal fossa that would suggest acute thrombosis. Coaptation is unremarkable throughout. Doppler interrogation shows an expected response to respiratory variability and augmentation. The color flow Doppler images show what appears to be a normal vascular pattern throughout. Tibial and peroneal veins showed the compressibility on the right but were unable to be visualized on the left due to extremity edema. IMPRESSION: There is no ultrasonographic evidence of deep venous thrombosis involving any of the visualized deep venous structures of the bilateral thighs and the right calf. Left calf veins could not be seen due to edema. As described above. Accredited by the [employer] in Vascular Peripheral Ultrasound. <Electronically signed by Sundeep Irving > 08/06/21 [id number]
== END ==
LOC: M RAD 12:09
PROVIDERS: ATTEND Internal Medicine Cardiovascular Disease
DX: M79.605 Pain in left leg (principal); R60.0 Localized edema; M41.25 Other idiopathic scoliosis, thoracolumbar region; I50.32 Chronic diastolic (congestive) heart failure

== ENCOUNTER 2021-08-15 15:52 | Inpatient (IN) | payer MEDICARE, OTHER ==
[~2021-08-15] VITALS: Ht 147.3 cm; Wt 47.3 kg
[2021-08-15] MEDS ORDERED: TORS20TA2 (16:07)
[2021-08-15] MEDS ORDERED: SPIR-10 PO (16:07)
[2021-08-15] MEDS ORDERED: GABA-282 PO (16:07)
[2021-08-15] MEDS ORDERED: VALS40TA9 (16:07)
[2021-08-15] MEDS ORDERED: SYNT75TA PO (16:07)
[2021-08-15 17:38] LABS: BASO % 0.4 % (0.0-1.0); EOS # 0.3 10^3/uL (0.0-0.5); EOS % 3.5 % (0.0-3.0); HEMATOCRIT 35.1 % (36.0-47.0); HEMOGLOBIN 11.7 g/dl (12.0-15.5); LYMPH # 2.6 10^3/uL (1.5-5.0); LYMPH % 26.5 % (24.0-44.0); MEAN CORPUSCULAR HEMOGLOBIN 33.8 pg (27.0-33.0); MEAN CORPUSCULAR HGB CONC 33.3 g/dl (32.0-36.5); MEAN CORPUSCULAR VOLUME 101.4 fl (80.0-96.0); MONO # 1.1 10^3/uL (0.0-0.8); MONO % 11.7 % (2.0-8.0); NEUTROPHILS # 5.6 10^3/uL (1.5-8.5); NEUTROPHILS % 57.7 % (36.0-66.0); PLATELET COUNT, AUTOMATED 184 10^3/uL (150-450); RED BLOOD COUNT 3.46 10^6/uL (4.00-5.40); WHITE BLOOD COUNT 9.8 10^3/uL (4.0-10.0)
[2021-08-15 17:43] LABS: INR 1.24
[2021-08-15 17:50] LABS: CALCIUM LEVEL 9.6 MG/DL (8.8-10.2); CREATININE FOR GFR 1.2 MG/DL (0.55-1.30); GLOMERULAR FILTRATION RATE 45.8 (>32); POTASSIUM SERUM 4.1 MEQ/L (3.5-5.1)
[2021-08-15] MEDS ORDERED: cefTRIAXone SOD 1 GM in D5W MINI-BAG PLUS 50 ML IV ONE (18:45)
[2021-08-15] MEDS ORDERED: ATOR1TAB21 PO (18:49)
[2021-08-15] MEDS ORDERED: LABETALOL 100MG/20ML VIAL IV STA (19:03)
[2021-08-15] MEDS ORDERED: SITA50TAB PO (19:36)
[2021-08-15] MEDS ORDERED: ESSE250T PO (19:36)
[2021-08-15] MEDS ORDERED: HOME MED LIST COMPLETE! XX SCH (19:40)
[2021-08-15 19:41] LABS: RSV AMPLIFICATION NEGATIVE (NEGATIVE)
[2021-08-15] MEDS ORDERED: MAALOX 30 ML SUSP *UDC PO PRN (21:25)
[2021-08-15] MEDS ORDERED: MOM 30ML SUSPENSION UDC PO PRN (21:25)
[2021-08-15] MEDS ORDERED: ENALAPRILAT INJ 2.5MG/2ML VIAL IV ONE (23:25)
[2021-08-16] MEDS: APIXABAN 2.5 MG TAB (ELIQUIS) PO SCH ×3 (02:34→20:15)
[2021-08-16] MEDS: GABAPENTIN 300 MG CAP PO SCH ×2 (02:34→20:16)
[2021-08-16 05:08] LABS: HEMOGLOBIN 10.8 g/dl (12.0-15.5); MEAN CORPUSCULAR HEMOGLOBIN 33.2 pg (27.0-33.0); MEAN CORPUSCULAR HGB CONC 33.8 g/dl (32.0-36.5); MEAN CORPUSCULAR VOLUME 98.5 fl (80.0-96.0); PLATELET COUNT, AUTOMATED 175 10^3/uL (150-450); RED BLOOD COUNT 3.25 10^6/uL (4.00-5.40)
[2021-08-16 05:26] LABS: INR 1.31; PROTHROMBIN TIME 16.7 SECONDS (12.7-14.5)
[2021-08-16 05:27] LABS: HEMOGLOBIN A1c 6.2 %; PARTIAL THROMBOPLASTIN TIME 35.7 SECONDS (25.9-37.0)
[2021-08-16 05:41] LABS: BLOOD UREA NITROGEN 19 MG/DL (7-18); CALCIUM LEVEL 9.2 MG/DL (8.8-10.2); CARBON DIOXIDE LEVEL 24 MEQ/L (21-32); CHLORIDE LEVEL 106 MEQ/L (98-107); CREATININE FOR GFR 0.94 MG/DL (0.55-1.30); GLOMERULAR FILTRATION RATE > 60.0 (>32); GLUCOSE, FASTING 179 MG/DL (70-100); POTASSIUM SERUM 4.1 MEQ/L (3.5-5.1); SODIUM LEVEL 137 MEQ/L (136-145)
[2021-08-16 06:51] LABS: HEMOGLOBIN A1c 6.2 %
[2021-08-16] MEDS: VITAMIN D 1,000 INTERNATIONAL UNITS TABLET PO SCH ×2 (07:41→18:25)
[2021-08-16] MEDS ORDERED: METOPROLOL SUCC *XL* 25MG TAB (TopROL *XL*) PO SCH (09:00)
[2021-08-16] MEDS: ASPIRIN 81MG ENTERIC TABLET PO SCH (09:05)
[2021-08-16] MEDS: SPIRONOLACTONE 12.5MG PER 1/2 TABLET PO SCH (09:05)
[2021-08-16] MEDS: LEVOTHYROXINE 75MCG TABLET (0.075MG) PO SCH (10:01)
[2021-08-16 12:27] LABS: HEMATOCRIT 33.8 % (36.0-47.0); HEMOGLOBIN 11.3 g/dl (12.0-15.5)
[2021-08-16 13:19] VITALS: BP 186/98
[2021-08-16] MEDS: hydrALAZINE 20MG/ML 1ML VIAL (J0360 PER 20MG) IV PRN (13:32)
[2021-08-16] MEDS: amLODIPine 5 MG TAB PO SCH (14:49)
[2021-08-16] MEDS: ACETAMINOPHEN TAB 650MG DOSE (2X325MG) PO PRN (15:48)
[2021-08-16 16:00] VITALS: BP 146/74
[2021-08-16 18:27] LABS: HEMATOCRIT 33.5 % (36.0-47.0); HEMOGLOBIN 11.4 g/dl (12.0-15.5)
[2021-08-16 20:00] VITALS: BP 151/75
[2021-08-16] MEDS: ATORVASTATIN 20 MG TAB PO SCH (20:15)
[2021-08-17] VITALS (12 sets, daily range): BP systolic 133–190; BP diastolic 63–90
[2021-08-17 01:08] LABS: HEMOGLOBIN 11.3 g/dl (12.0-15.5)
[2021-08-17] MEDS: hydrALAZINE 20MG/ML 1ML VIAL (J0360 PER 20MG) IV PRN (04:12)
[2021-08-17] MEDS ORDERED: hydrALAZINE 20MG/ML 1ML VIAL (J0360 PER 20MG) IV ONE (05:10)
[2021-08-17 05:21] LABS: BASO # 0.1 10^3/uL (0.0-0.2); BASO % 0.5 % (0.0-1.0); EOS # 0.4 10^3/uL (0.0-0.5); EOS % 3.8 % (0.0-3.0); HEMATOCRIT 34.1 % (36.0-47.0); HEMOGLOBIN 11.6 g/dl (12.0-15.5); LYMPH # 2.6 10^3/uL (1.5-5.0); LYMPH % 28.5 % (24.0-44.0); MEAN CORPUSCULAR HEMOGLOBIN 33.5 pg (27.0-33.0); MEAN CORPUSCULAR VOLUME 98.6 fl (80.0-96.0); MONO # 0.9 10^3/uL (0.0-0.8); NEUTROPHILS # 5.2 10^3/uL (1.5-8.5); NEUTROPHILS % 56.9 % (36.0-66.0); PLATELET COUNT, AUTOMATED 181 10^3/uL (150-450); RED BLOOD COUNT 3.46 10^6/uL (4.00-5.40); WHITE BLOOD COUNT 9.2 10^3/uL (4.0-10.0)
[2021-08-17 05:43] LABS: BLOOD UREA NITROGEN 16 MG/DL (7-18); CALCIUM LEVEL 9.2 MG/DL (8.8-10.2); CARBON DIOXIDE LEVEL 25 MEQ/L (21-32); CHLORIDE LEVEL 106 MEQ/L (98-107); CREATININE FOR GFR 0.86 MG/DL (0.55-1.30); GLOMERULAR FILTRATION RATE > 60.0 (>32); GLUCOSE, FASTING 174 MG/DL (70-100); POTASSIUM SERUM 4.4 MEQ/L (3.5-5.1); SODIUM LEVEL 138 MEQ/L (136-145)
[2021-08-17] MEDS: LEVOTHYROXINE 75MCG TABLET (0.075MG) PO SCH (05:45)
[2021-08-17] MEDS: amLODIPine 5 MG TAB PO SCH (07:40)
[2021-08-17] MEDS: ASPIRIN 81MG ENTERIC TABLET PO SCH (08:05)
[2021-08-17] MEDS: APIXABAN 2.5 MG TAB (ELIQUIS) PO SCH ×2 (08:06→19:45)
[2021-08-17] MEDS: SPIRONOLACTONE 12.5MG PER 1/2 TABLET PO SCH (08:06)
[2021-08-17] MEDS: METOPROLOL SUCC (TopROL XL) 50MG **XL** TAB PO SCH (08:06)
[2021-08-17] MEDS ORDERED: FLUBLOK(EGG FREE)(QUAD)INFLUENZA VACC 0.5ML SYRINGE 18YRS & OLDER IM ONE (09:00)
[2021-08-17] MEDS: ACETAMINOPHEN TAB 650MG DOSE (2X325MG) PO PRN (09:09)
[2021-08-17 10:48] LABS: CA 125 15.8 U/ML (<30.2); CA19-9 TUMOR MARKER,CARBOHYDRA 12.8 U/ML (<35.0)
[2021-08-17] MEDS: VITAMIN D 1,000 INTERNATIONAL UNITS TABLET PO SCH (17:39)
[2021-08-17] MEDS: ATORVASTATIN 20 MG TAB PO SCH (19:44)
[2021-08-17] MEDS: GABAPENTIN 300 MG CAP PO SCH (19:44)
[2021-08-18] MEDS: LEVOTHYROXINE 75MCG TABLET (0.075MG) PO SCH (05:41)
[2021-08-18] MEDS: ACETAMINOPHEN TAB 650MG DOSE (2X325MG) PO PRN (05:42)
[2021-08-18 06:00] VITALS: BP 111/70
[2021-08-18 06:36] LABS: BASO # 0.1 10^3/uL (0.0-0.2); BASO % 0.5 % (0.0-1.0); EOS # 0.4 10^3/uL (0.0-0.5); EOS % 3.8 % (0.0-3.0); HEMATOCRIT 34.9 % (36.0-47.0); HEMOGLOBIN 11.5 g/dl (12.0-15.5); LYMPH # 2.7 10^3/uL (1.5-5.0); LYMPH % 27.2 % (24.0-44.0); MEAN CORPUSCULAR HEMOGLOBIN 32.7 pg (27.0-33.0); MEAN CORPUSCULAR VOLUME 99.1 fl (80.0-96.0); MONO % 10.3 % (2.0-8.0); NEUTROPHILS # 5.8 10^3/uL (1.5-8.5); NEUTROPHILS % 57.8 % (36.0-66.0); PLATELET COUNT, AUTOMATED 182 10^3/uL (150-450); RED BLOOD COUNT 3.52 10^6/uL (4.00-5.40); WHITE BLOOD COUNT 10.1 10^3/uL (4.0-10.0)
[2021-08-18 07:04] LABS: CALCIUM LEVEL 9.4 MG/DL (8.8-10.2); CREATININE FOR GFR 0.95 MG/DL (0.55-1.30); MAGNESIUM LEVEL 2.1 MG/DL (1.8-2.4); POTASSIUM SERUM 4.5 MEQ/L (3.5-5.1)
[2021-08-18 09:05] VITALS: BP 111/70
[2021-08-18] MEDS: SPIRONOLACTONE 12.5MG PER 1/2 TABLET PO SCH (09:05)
[2021-08-18] MEDS: ASPIRIN 81MG ENTERIC TABLET PO SCH (09:05)
[2021-08-18] MEDS: APIXABAN 2.5 MG TAB (ELIQUIS) PO SCH (09:05)
[2021-08-18] MEDS: amLODIPine 5 MG TAB PO SCH (09:05)
[2021-08-18] MEDS: METOPROLOL SUCC (TopROL XL) 50MG **XL** TAB PO SCH (09:05)
[2021-08-18] MEDS ORDERED: METO1TAB7 PO (16:07)
[2021-08-18] MEDS ORDERED: LISI10TA22 PO (16:07)
[2021-08-18] MEDS ORDERED: SENO8.6T10 PO (16:19)
[2021-08-18] MEDS ORDERED: CIPR-250 PO (16:19)
[2021-08-18 16:34] VITALS: BP 127/66
[2021-11-06] MEDS ORDERED: METO1TAB32 PO (10:57)
[2021-11-06] MEDS ORDERED: VITMTA PO (10:57)
== END 2021-08-18 18:00 | disposition home health service (06) | DRG 305 ==
LOC: M ED 15:52 → M ED INP 21:25 → M PCU 08-16 13:09 → M MS5PR 08-17 20:48
PROVIDERS: ADMIT Internal Medicine; ATTEND Internal Medicine
DX: I16.0 Hypertensive urgency (principal); I50.32 Chronic diastolic (congestive) heart failure; I48.20 Chronic atrial fibrillation, unspecified; N39.0 Urinary tract infection, site not specified; N95.0 Postmenopausal bleeding; I11.0 Hypertensive heart disease with heart failure; C54.1 Malignant neoplasm of endometrium; E03.9 Hypothyroidism, unspecified; E11.9 Type 2 diabetes mellitus without complications; Z95.2 Presence of prosthetic heart valve; I25.10 Atherosclerotic heart disease of native coronary artery without angina pectoris; F01.50 Vascular dementia, unspecified severity, without behavioral disturbance, psychotic disturbance, mood disturbance, and anxiety; Z79.899 Other long term (current) drug therapy; Z79.82 Long term (current) use of aspirin; Z79.01 Long term (current) use of anticoagulants

== ENCOUNTER → 2021-11-06 | Outpatient (CLI) | payer MEDICARE, OTHER ==
[~2021-11-06] MED LIST changes: +ATOR1TAB21 PO; +ESSE250T PO; +GABA-282 PO; +LISI10TA22 PO; +METO1TAB7 PO; +SENO8.6T10 PO; +SITA50TAB PO; +SPIR-10 PO; +SYNT75TA PO; +TORS20TA2; +VALS40TA9; +VITMTA PO
== END ==
LOC: M LABSMTC 09:35
PROVIDERS: ATTEND Anesthesiology
DX: Z01.812 Encounter for preprocedural laboratory examination (principal); Z20.822 Contact with and (suspected) exposure to COVID-19

== ENCOUNTER 2021-11-11 11:26 | Day surgery (SDC) | payer MEDICARE, OTHER ==
[~2021-11-11] VITALS: Ht 147.3 cm; Wt 43.1 kg
[~2021-11-11 11:26] MED LIST changes: +ACETAMINOPHEN *IV* 1,000 MG IV ONE; +LR 1,000 ML IV ONE
[2021-11-11 12:09] LABS: HEMATOCRIT 49.4 % (36.0-47.0); HEMOGLOBIN 15.8 g/dl (12.0-15.5); MEAN CORPUSCULAR HEMOGLOBIN 31.4 pg (27.0-33.0); MEAN CORPUSCULAR VOLUME 98.2 fl (80.0-96.0); PLATELET COUNT, AUTOMATED 173 10^3/uL (150-450); RED BLOOD COUNT 5.03 10^6/uL (4.00-5.40); WHITE BLOOD COUNT 12.9 10^3/uL (4.0-10.0)
[2021-11-11 12:32] LABS: CALCIUM LEVEL 10.2 MG/DL (8.8-10.2); CREATININE FOR GFR 1.01 MG/DL (0.55-1.30); GLOMERULAR FILTRATION RATE 55.9 (>32); POTASSIUM SERUM 3.9 MEQ/L (3.5-5.1)
[2021-11-11] MEDS ORDERED: ONDANSETRON 4MG/2ML VIAL As Ordered ONE (12:46)
[2021-11-11] MEDS ORDERED: ACETAMINOPHEN 1000MG 100ML IV BTL (OFIRMEV) (J0131 PER 10MG) As Ordered ONE (12:46)
[2021-11-11] MEDS ORDERED: dexameTHASONE 4 MG/ML 1ML VIAL (J1100 PER 1MG) As Ordered ONE (12:46)
[2021-11-11] MEDS ORDERED: fentaNYL 100 MCG/2 ML INJECTION As Ordered ONE (12:46)
[2021-11-11] MEDS ORDERED: LIDOCAINE 2% 100MG/5ML SDV (FOR ANES.) As Ordered ONE (12:46)
[2021-11-11] MEDS ORDERED: propofoL 200 MG/20 ML VIAL As Ordered ONE (12:46)
[2021-11-11] MEDS ORDERED: oxyCODONE 5MG TAB PO PRN (14:20)
[2021-11-11] MEDS ORDERED: fentaNYL 100 MCG/2 ML INJECTION IV PRN (14:20)
[2021-11-11] MEDS ORDERED: LR 1,000 ML IV SCH ×2 (14:20→14:25)
[2021-11-11] MEDS ORDERED: ONDANSETRON 4MG/2ML VIAL IV PRN (14:20)
[2021-11-11] MEDS ORDERED: ACETAMINOPH W/CODEINE #3 TAB UD PO PRN (14:25)
[2021-11-11 15:30] VITALS: BP 150/76
== END 2021-11-11 15:45 | disposition home or self-care (01) ==
LOC: M SDC 11:26
PROVIDERS: ATTEND Obstetrics & Gynecology
DX: N95.0 Postmenopausal bleeding (principal); N36.2 Urethral caruncle; N85.8 Other specified noninflammatory disorders of uterus; I48.20 Chronic atrial fibrillation, unspecified; I10 Essential (primary) hypertension; E11.9 Type 2 diabetes mellitus without complications; E03.9 Hypothyroidism, unspecified; E78.5 Hyperlipidemia, unspecified; Z79.899 Other long term (current) drug therapy
CPT/HCPCS: 36415; 58558; 80048; 85027; 86850; 86900; 86901; 87070; 87075; 87077; 87088; 87186; 88108; 88305; J0131; J1100; J2405; J3010

== ENCOUNTER 2021-12-11 13:53 | Inpatient (IN) | payer MEDICARE, OTHER ==
[~2021-12-11] VITALS: Ht 147.3 cm; Wt 46.7 kg
[~2021-12-11 13:53] MED LIST changes: -ACETAMINOPHEN *IV* 1,000 MG IV ONE; -D31000TA2 PO; -LR 1,000 ML IV ONE; +VITA100093 PO
[2021-12-11] MEDS ORDERED: ISOVUE-370 76% 100ML VIAL As Ordered ONE (14:54)
[2021-12-11 15:28] VITALS: BP 166/75
[2021-12-11 16:20] LABS: BASO % 0.2 % (0.0-1.0); EOS % 0.1 % (0.0-3.0); HEMATOCRIT 38.9 % (36.0-47.0); HEMOGLOBIN 13.1 g/dl (12.0-15.5); LYMPH # 2.6 10^3/uL (1.5-5.0); LYMPH % 13.2 % (24.0-44.0); MEAN CORPUSCULAR HEMOGLOBIN 32.7 pg (27.0-33.0); MEAN CORPUSCULAR HGB CONC 33.7 g/dl (32.0-36.5); MONO % 12.8 % (2.0-8.0); NEUTROPHILS # 14.5 10^3/uL (1.5-8.5); NEUTROPHILS % 72.9 % (36.0-66.0); PLATELET COUNT, AUTOMATED 173 10^3/uL (150-450); RED BLOOD COUNT 4.01 10^6/uL (4.00-5.40); WHITE BLOOD COUNT 19.8 10^3/uL (4.0-10.0)
[2021-12-11 16:31] LABS: INR 1.55
[2021-12-11 16:32] LABS: PARTIAL THROMBOPLASTIN TIME 30.3 SECONDS (25.9-37.0)
[2021-12-11 16:45] LABS: CALCIUM LEVEL 9.6 MG/DL (8.8-10.2); CREATININE FOR GFR 1.48 MG/DL (0.55-1.30); GLOMERULAR FILTRATION RATE 35.9 (>32); POTASSIUM SERUM 4.7 MEQ/L (3.5-5.1)
[2021-12-11 16:47] LABS: MONO # 2.5 10^3/uL (0.0-0.8)
[2021-12-11 16:50] LABS: CK-MB VALUE MASS 1.7 NG/ML (<3.6); MB/CK RELATIVE INDEX 1.28 (< OR =4)
[2021-12-11] MEDS ORDERED: MAGNESIUM OXIDE 400MG TAB (MAG-OX) PO SCH (17:00)
[2021-12-11] MEDS ORDERED: ATORVASTATIN 20 MG TAB PO SCH (17:00)
[2021-12-11] MEDS ORDERED: METO1TAB7 PO (17:28)
[2021-12-11] MEDS ORDERED: LISI10TA22 PO (17:52)
[2021-12-11] MEDS ORDERED: MAGN400T2 PO (17:52)
[2021-12-11] MEDS ORDERED: HOME MED LIST COMPLETE! XX SCH (17:55)
[2021-12-11] MEDS ORDERED: NS 0.45% 1,000 ML IV ONE (18:00)
[2021-12-11 18:01] LABS: C REACTIVE PROTEIN QUANTITATIV 23.1 MG/DL (0.00-0.30)
[2021-12-11] MEDS ORDERED: ACETAMINOPHEN 650MG ER TAB (TYLENOL ARTHRITIS) PO PRN (18:05)
[2021-12-11] MEDS ORDERED: GLUCOSE 4GM CHEW TABLET PO PRN (18:05)
[2021-12-11] MEDS ORDERED: DEXTROSE 50% 50 ML SYRINGE IV PRN (18:05)
[2021-12-11] MEDS ORDERED: GLUCAGON INJ 1MG VIAL SC PRN (18:05)
[2021-12-11] MEDS: cefTRIAXone SOD 2 GM in D5W MINI-BAG PLUS 50 ML IV SCH (18:34)
[2021-12-11 18:49] LABS: ERYTHROCYTE SEDIMENTATION RATE 63 mm/hr (0-30)
[2021-12-11] MEDS ORDERED: NS 0.45% 1,000 ML IV SCH (19:00)
[2021-12-11 19:09] LABS: RSV AMPLIFICATION NEGATIVE (NEGATIVE)
[2021-12-11] MEDS ORDERED: NS 1,000 ML IV ONE (19:45)
[2021-12-11] MEDS ORDERED: D5W/0.45% SODIUM CHLORIDE 1,000 ML IV SCH (20:00)
[2021-12-11 20:50] VITALS: BP 127/65
[2021-12-11] MEDS ORDERED: APIXABAN 2.5 MG TAB (ELIQUIS) PO SCH (21:00)
[2021-12-11] MEDS ORDERED: HumaLOG INSULIN (NovoLOG) PER UNIT SC SCH (21:00)
[2021-12-11] MEDS: D5W/0.45% SODIUM CHLORIDE 1,000 ML IV SCH (22:00)
[2021-12-11 23:33] LABS: ALBUMIN 3.2 GM/DL (3.2-5.2); BILIRUBIN,TOTAL 1.1 MG/DL (0.2-1.0); CALCIUM LEVEL 9.8 MG/DL (8.8-10.2); CREATININE FOR GFR 1.39 MG/DL (0.55-1.30); GLOMERULAR FILTRATION RATE 38.6 (>32); POTASSIUM SERUM 4.6 MEQ/L (3.5-5.1); TOTAL PROTEIN 7.8 GM/DL (6.4-8.2)
[2021-12-12] VITALS: BP 134/71
[2021-12-12 04:00] VITALS: BP 113/56
[2021-12-12] MEDS ORDERED: LEVOTHYROXINE 75MCG TABLET (0.075MG) PO SCH (06:00)
[2021-12-12] MEDS ORDERED: HumaLOG INSULIN (NovoLOG) PER UNIT SC SCH (07:30)
[2021-12-12 07:36] LABS: HEMATOCRIT 33.2 % (36.0-47.0); HEMOGLOBIN 11.5 g/dl (12.0-15.5); MEAN CORPUSCULAR HGB CONC 34.6 g/dl (32.0-36.5); MEAN CORPUSCULAR VOLUME 95.4 fl (80.0-96.0); PLATELET COUNT, AUTOMATED 166 10^3/uL (150-450); RED BLOOD COUNT 3.48 10^6/uL (4.00-5.40); WHITE BLOOD COUNT 16.3 10^3/uL (4.0-10.0)
[2021-12-12 07:56] LABS: CREATININE FOR GFR 1.3 MG/DL (0.55-1.30); GLOMERULAR FILTRATION RATE 41.7 (>32); POTASSIUM SERUM 3.9 MEQ/L (3.5-5.1)
[2021-12-12 08:07] LABS: CHOLESTEROL RISK RATIO 2.171 (<5); CREATININE FOR GFR 1.31 MG/DL (0.55-1.30); GLOMERULAR FILTRATION RATE 41.4 (>32); POTASSIUM SERUM 3.9 MEQ/L (3.5-5.1); THYROID STIMULATING HORMONE 0.801 uIU/ML (0.358-3.740)
[2021-12-12 08:24] VITALS: BP 120/70
[2021-12-12] MEDS: LEVOTHYROXINE 100MCG (0.1MG) VIAL (POWDER FORM) IV SCH (08:48)
[2021-12-12] MEDS: HumaLOG INSULIN (NovoLOG) PER UNIT SC SCH ×3 (08:48→17:23)
[2021-12-12] MEDS: ENOXAPARIN 30MG/0.3ML SYRINGE (J1650 PER 10MG) SC SCH (08:48)
[2021-12-12] MEDS: ASPIRIN 300 MG SUPP PR SCH (08:49)
[2021-12-12] MEDS ORDERED: ASPIRIN 81MG ENTERIC TABLET PO SCH (09:00)
[2021-12-12] MEDS ORDERED: METOPROLOL SUCC (TopROL XL) 50MG **XL** TAB PO SCH (09:00)
[2021-12-12] MEDS ORDERED: MULTIVITAMINS/MINERALS THERAP 1 TAB PO SCH (09:00)
[2021-12-12] MEDS: metroNIDAZOLE 500 MG in IV 1 EA IV SCH ×2 (10:19→17:23)
[2021-12-12] MEDS: D5W/0.45% SODIUM CHLORIDE 1,000 ML IV SCH (11:03)
[2021-12-12 12:10] VITALS: BP 134/74
[2021-12-12 12:54] LABS: ALBUMIN 2.6 GM/DL (3.2-5.2); BILIRUBIN,TOTAL 0.9 MG/DL (0.2-1.0); CALCIUM LEVEL 8.5 MG/DL (8.8-10.2); CREATININE FOR GFR 1.29 MG/DL (0.55-1.30); GLOMERULAR FILTRATION RATE 42.1 (>32); POTASSIUM SERUM 3.9 MEQ/L (3.5-5.1); TOTAL PROTEIN 5.9 GM/DL (6.4-8.2)
[2021-12-12 15:49] VITALS: BP 150/85
[2021-12-12 19:45] VITALS: BP 171/91
[2021-12-12] MEDS: cefTRIAXone SOD 2 GM in D5W MINI-BAG PLUS 50 ML IV SCH (20:00)
[2021-12-13] VITALS (16 sets, daily range): BP systolic 116–182; BP diastolic 55–90
[2021-12-13] MEDS: D5W/0.45% SODIUM CHLORIDE 1,000 ML IV SCH (00:21)
[2021-12-13] MEDS: metroNIDAZOLE 500 MG in IV 1 EA IV SCH ×3 (01:36→17:05)
[2021-12-13] MEDS: HumaLOG INSULIN (NovoLOG) PER UNIT SC SCH ×5 (05:32→23:35)
[2021-12-13] MEDS: METOPROLOL 5 MG/5 ML VIAL IV PRN ×2 (05:34→22:39)
[2021-12-13 06:10] LABS: HEMATOCRIT 30.5 % (36.0-47.0); HEMOGLOBIN 10.5 g/dl (12.0-15.5); MEAN CORPUSCULAR HEMOGLOBIN 32.5 pg (27.0-33.0); MEAN CORPUSCULAR HGB CONC 34.4 g/dl (32.0-36.5); MEAN CORPUSCULAR VOLUME 94.4 fl (80.0-96.0); PLATELET COUNT, AUTOMATED 150 10^3/uL (150-450); RED BLOOD COUNT 3.23 10^6/uL (4.00-5.40); WHITE BLOOD COUNT 11.8 10^3/uL (4.0-10.0)
[2021-12-13 06:35] LABS: ALBUMIN 2.3 GM/DL (3.2-5.2); BILIRUBIN,DIRECT 0.2 MG/DL (0.0-0.2); BILIRUBIN,TOTAL 0.7 MG/DL (0.2-1.0); CALCIUM LEVEL 8.3 MG/DL (8.8-10.2); CREATININE FOR GFR 0.95 MG/DL (0.55-1.30); POTASSIUM SERUM 3.4 MEQ/L (3.5-5.1); TOTAL PROTEIN 6.2 GM/DL (6.4-8.2)
[2021-12-13] MEDS: KCL 40MEQ IN D5/0.45NS 1000ML 1,000 ML IV SCH ×2 (07:49→20:42)
[2021-12-13] MEDS: LEVOTHYROXINE 100MCG (0.1MG) VIAL (POWDER FORM) IV SCH (08:43)
[2021-12-13] MEDS: hydrALAZINE 20MG/ML 1ML VIAL (J0360 PER 20MG) IV SCH ×5 (08:43→23:35)
[2021-12-13] MEDS: ASPIRIN 300 MG SUPP PR SCH (08:44)
[2021-12-13] MEDS: ENOXAPARIN 30MG/0.3ML SYRINGE (J1650 PER 10MG) SC SCH (08:44)
[2021-12-13] MEDS ORDERED: NITROGLYCERIN 2% OINT 1 GM *U/D* PKT TOP SCH (09:00)
[2021-12-13] MEDS ORDERED: DIGOXIN INJ 0.5 MG/2 ML AMP (J1160) IV SCH (10:15)
[2021-12-13] MEDS: METOPROLOL 5 MG/5 ML VIAL IV SCH ×3 (10:20→10:29)
[2021-12-13] MEDS ORDERED: APIXABAN 5 MG TAB (ELIQUIS) PO ONE (10:35)
[2021-12-13] MEDS ORDERED: METOPROLOL 5 MG/5 ML VIAL IV ONE (11:15)
[2021-12-13] MEDS: cefTRIAXone SOD 2 GM in D5W MINI-BAG PLUS 50 ML IV SCH (19:58)
[2021-12-13] MEDS ORDERED: APIXABAN 5 MG TAB (ELIQUIS) PO SCH (21:00)
[2021-12-13] MEDS ORDERED: RAMELTEON 8 MG TAB (ROZEREM) PO ONE (23:15)
[2021-12-14] VITALS: BP 160/71
[2021-12-14] MEDS: metroNIDAZOLE 500 MG in IV 1 EA IV SCH ×2 (02:07→09:32)
[2021-12-14 04:00] VITALS: BP 154/72
[2021-12-14] MEDS: hydrALAZINE 20MG/ML 1ML VIAL (J0360 PER 20MG) IV SCH ×2 (04:12→08:15)
[2021-12-14] MEDS: HumaLOG INSULIN (NovoLOG) PER UNIT SC SCH ×4 (05:55→21:00)
[2021-12-14 06:01] LABS: HEMATOCRIT 33.4 % (36.0-47.0); HEMOGLOBIN 11.4 g/dl (12.0-15.5); MEAN CORPUSCULAR HEMOGLOBIN 32.5 pg (27.0-33.0); MEAN CORPUSCULAR HGB CONC 34.1 g/dl (32.0-36.5); MEAN CORPUSCULAR VOLUME 95.2 fl (80.0-96.0); PLATELET COUNT, AUTOMATED 184 10^3/uL (150-450); RED BLOOD COUNT 3.51 10^6/uL (4.00-5.40); WHITE BLOOD COUNT 10.3 10^3/uL (4.0-10.0)
[2021-12-14 06:43] LABS: BLOOD UREA NITROGEN 13 MG/DL (7-18); CALCIUM LEVEL 8.4 MG/DL (8.8-10.2); CARBON DIOXIDE LEVEL 19 MEQ/L (21-32); CHLORIDE LEVEL 109 MEQ/L (98-107); CREATININE FOR GFR 0.87 MG/DL (0.55-1.30); DIGOXIN LEVEL 0.2 NG/ML (0.5-2.0); GLOMERULAR FILTRATION RATE > 60.0 (>32); GLUCOSE, FASTING 210 MG/DL (70-100); POTASSIUM SERUM 4.3 MEQ/L (3.5-5.1); SODIUM LEVEL 137 MEQ/L (136-145)
[2021-12-14 08:00] VITALS: BP 166/84
[2021-12-14] MEDS ORDERED: ENOXAPARIN 30MG/0.3ML SYRINGE (J1650 PER 10MG) SC SCH (09:00)
[2021-12-14] MEDS: LEVOTHYROXINE 100MCG (0.1MG) VIAL (POWDER FORM) IV SCH (09:32)
[2021-12-14] MEDS ORDERED: APIXABAN 2.5 MG TAB (ELIQUIS) PO ONE (09:35)
[2021-12-14] MEDS ORDERED: MULTIVITAMINS/MINERALS THERAP 1 TAB PO ONE (09:35)
[2021-12-14] MEDS ORDERED: METOPROLOL SUCC (TopROL XL) 50MG **XL** TAB PO ONE (09:35)
[2021-12-14] MEDS ORDERED: ASPIRIN 81 MG CHEW TABLET PO ONE (09:35)
[2021-12-14] MEDS: SODIUM BICARBONATE 325 MG TAB PO SCH ×2 (10:37→21:23)
[2021-12-14 11:58] VITALS: BP 164/72
[2021-12-14 16:00] VITALS: BP 148/68
[2021-12-14] MEDS ORDERED: SITagliptin 50 MG TAB (JANUVIA) PO SCH (18:00)
[2021-12-14] MEDS ORDERED: metFORMIN (GLUCOPHAGE) 500MG TAB PO SCH (18:00)
[2021-12-14 18:07] LABS: Lyme Disease IgG/IgM Antibodie <0.91 ISR (0.00-0.90); Lyme Disease IgM Ab Quantitati <0.80 index (0.00-0.79)
[2021-12-14] MEDS ORDERED: LevoFLOXacin 500 MG TABLET PO ONE (20:00)
[2021-12-14] MEDS ORDERED: RAMELTEON 8 MG TAB (ROZEREM) PO PRN (20:20)
[2021-12-14] MEDS ORDERED: ATORVASTATIN 20 MG TAB PO SCH (21:00)
[2021-12-14 21:22] VITALS: BP 169/97
[2021-12-14] MEDS: ATORVASTATIN 20 MG TAB PO SCH (21:23)
[2021-12-14] MEDS: GABAPENTIN 300 MG CAP PO SCH (21:23)
[2021-12-14] MEDS: APIXABAN 2.5 MG TAB (ELIQUIS) PO SCH (21:23)
[2021-12-15 01:09] VITALS: BP 163/89
[2021-12-15 04:15] VITALS: BP 158/86
[2021-12-15 05:46] LABS: HEMATOCRIT 30.2 % (36.0-47.0); HEMOGLOBIN 10.2 g/dl (12.0-15.5); MEAN CORPUSCULAR HEMOGLOBIN 32.3 pg (27.0-33.0); MEAN CORPUSCULAR HGB CONC 33.8 g/dl (32.0-36.5); MEAN CORPUSCULAR VOLUME 95.6 fl (80.0-96.0); PLATELET COUNT, AUTOMATED 175 10^3/uL (150-450); RED BLOOD COUNT 3.16 10^6/uL (4.00-5.40); WHITE BLOOD COUNT 7.5 10^3/uL (4.0-10.0)
[2021-12-15 06:06] LABS: BLOOD UREA NITROGEN 12 MG/DL (7-18); CALCIUM LEVEL 8.6 MG/DL (8.8-10.2); CARBON DIOXIDE LEVEL 23 MEQ/L (21-32); CHLORIDE LEVEL 110 MEQ/L (98-107); CREATININE FOR GFR 0.75 MG/DL (0.55-1.30); GLOMERULAR FILTRATION RATE > 60.0 (>32); GLUCOSE, FASTING 176 MG/DL (70-100); POTASSIUM SERUM 4.5 MEQ/L (3.5-5.1); SODIUM LEVEL 137 MEQ/L (136-145)
[2021-12-15 08:00] VITALS: BP 137/92
[2021-12-15] MEDS: HumaLOG INSULIN (NovoLOG) PER UNIT SC SCH ×4 (08:31→20:00)
[2021-12-15] MEDS: ASPIRIN 81 MG CHEW TABLET PO SCH (08:58)
[2021-12-15] MEDS: APIXABAN 2.5 MG TAB (ELIQUIS) PO SCH ×2 (08:58→20:01)
[2021-12-15] MEDS: MULTIVITAMINS/MINERALS THERAP 1 TAB PO SCH (08:59)
[2021-12-15] MEDS: SPIRONOLACTONE 12.5MG PER 1/2 TABLET PO SCH (08:59)
[2021-12-15] MEDS ORDERED: METOPROLOL SUCC (TopROL XL) 50MG **XL** TAB PO SCH (09:00)
[2021-12-15] MEDS: METOPROLOL SUCC *XL* 25MG TAB (TopROL *XL*) PO SCH (09:04)
[2021-12-15] MEDS: SODIUM BICARBONATE 325 MG TAB PO SCH ×2 (09:07→20:01)
[2021-12-15 12:00] VITALS: BP 135/80
[2021-12-15] MEDS ORDERED: VARIBAR NECTAR 40% w/v 240ML SUSP BTL As Ordered ONE (12:43)
[2021-12-15] MEDS ORDERED: VARIBAR PUDDING 40% w/v 230ML TUBE As Ordered ONE (12:43)
[2021-12-15] MEDS ORDERED: E-Z-PAQUE 96% w/w SUSP 176GM BTL As Ordered ONE (12:44)
[2021-12-15] MEDS ORDERED: BARIUM SULFATE 700 MG TABLET (E-Z-DISK) As Ordered ONE (12:44)
[2021-12-15 16:00] VITALS: BP 139/85
[2021-12-15 20:00] VITALS: BP 123/68
[2021-12-15] MEDS: ATORVASTATIN 20 MG TAB PO SCH (20:00)
[2021-12-15] MEDS: GABAPENTIN 300 MG CAP PO SCH (20:01)
[2021-12-15] MEDS: LevoFLOXacin 250 MG TABLET PO SCH (20:01)
[2021-12-15 21:07] LABS: HSV IgM TYPES 1&2 <0.91 Ratio (0.00-0.90)
[2021-12-16] VITALS (7 sets, daily range): BP systolic 101–140; BP diastolic 61–80
[2021-12-16 06:16] LABS: HEMATOCRIT 31.2 % (36.0-47.0); HEMOGLOBIN 10.7 g/dl (12.0-15.5); MEAN CORPUSCULAR HEMOGLOBIN 32.5 pg (27.0-33.0); MEAN CORPUSCULAR HGB CONC 34.3 g/dl (32.0-36.5); MEAN CORPUSCULAR VOLUME 94.8 fl (80.0-96.0); PLATELET COUNT, AUTOMATED 179 10^3/uL (150-450); RED BLOOD COUNT 3.29 10^6/uL (4.00-5.40); WHITE BLOOD COUNT 9.8 10^3/uL (4.0-10.0)
[2021-12-16 06:33] LABS: BLOOD UREA NITROGEN 12 MG/DL (7-18); CALCIUM LEVEL 8.7 MG/DL (8.8-10.2); CARBON DIOXIDE LEVEL 22 MEQ/L (21-32); CHLORIDE LEVEL 107 MEQ/L (98-107); CREATININE FOR GFR 0.78 MG/DL (0.55-1.30); GLOMERULAR FILTRATION RATE > 60.0 (>32); GLUCOSE, FASTING 168 MG/DL (70-100); POTASSIUM SERUM 4.1 MEQ/L (3.5-5.1); SODIUM LEVEL 136 MEQ/L (136-145)
[2021-12-16] MEDS: HumaLOG INSULIN (NovoLOG) PER UNIT SC SCH ×4 (08:31→20:20)
[2021-12-16] MEDS: SODIUM BICARBONATE 325 MG TAB PO SCH ×2 (08:32→20:18)
[2021-12-16] MEDS: ASPIRIN 81 MG CHEW TABLET PO SCH (08:32)
[2021-12-16] MEDS: MULTIVITAMINS/MINERALS THERAP 1 TAB PO SCH (08:32)
[2021-12-16] MEDS: SPIRONOLACTONE 12.5MG PER 1/2 TABLET PO SCH (08:32)
[2021-12-16] MEDS: APIXABAN 2.5 MG TAB (ELIQUIS) PO SCH ×2 (08:32→20:19)
[2021-12-16] MEDS: METOPROLOL SUCC *XL* 25MG TAB (TopROL *XL*) PO SCH (08:32)
[2021-12-16] MEDS ORDERED: RAME8TAB2 PO (11:19)
[2021-12-16] MEDS ORDERED: VITMTA PO (11:19)
[2021-12-16] MEDS ORDERED: METO1TAB32 PO (11:19)
[2021-12-16] MEDS ORDERED: LEVO250T3 PO (11:20)
[2021-12-16] MEDS: ATORVASTATIN 20 MG TAB PO SCH (20:19)
[2021-12-16] MEDS: LevoFLOXacin 250 MG TABLET PO SCH (20:19)
[2021-12-16] MEDS: GABAPENTIN 300 MG CAP PO SCH (20:19)
[2021-12-17 04:00] VITALS: BP 140/67
[2021-12-17 08:09] VITALS: BP 134/71
[2021-12-17 08:34] LABS: HEMATOCRIT 32.3 % (36.0-47.0); MEAN CORPUSCULAR HEMOGLOBIN 32.8 pg (27.0-33.0); MEAN CORPUSCULAR HGB CONC 34.1 g/dl (32.0-36.5); MEAN CORPUSCULAR VOLUME 96.4 fl (80.0-96.0); PLATELET COUNT, AUTOMATED 235 10^3/uL (150-450); RED BLOOD COUNT 3.35 10^6/uL (4.00-5.40); WHITE BLOOD COUNT 11.2 10^3/uL (4.0-10.0)
[2021-12-17 09:04] LABS: BLOOD UREA NITROGEN 11 MG/DL (7-18); CALCIUM LEVEL 8.9 MG/DL (8.8-10.2); CARBON DIOXIDE LEVEL 26 MEQ/L (21-32); CHLORIDE LEVEL 107 MEQ/L (98-107); CREATININE FOR GFR 0.79 MG/DL (0.55-1.30); GLOMERULAR FILTRATION RATE > 60.0 (>32); GLUCOSE, FASTING 175 MG/DL (70-100); POTASSIUM SERUM 4.3 MEQ/L (3.5-5.1); SODIUM LEVEL 137 MEQ/L (136-145)
[2021-12-17] MEDS: HumaLOG INSULIN (NovoLOG) PER UNIT SC SCH (09:24)
[2021-12-17] MEDS: MULTIVITAMINS/MINERALS THERAP 1 TAB PO SCH (09:25)
[2021-12-17] MEDS: ASPIRIN 81 MG CHEW TABLET PO SCH (09:25)
[2021-12-17] MEDS: SODIUM BICARBONATE 325 MG TAB PO SCH (09:25)
[2021-12-17] MEDS: APIXABAN 2.5 MG TAB (ELIQUIS) PO SCH (09:25)
[2021-12-17] MEDS: SPIRONOLACTONE 12.5MG PER 1/2 TABLET PO SCH (09:25)
[2021-12-17 09:26] VITALS: BP 138/80
[2021-12-17] MEDS: METOPROLOL SUCC *XL* 25MG TAB (TopROL *XL*) PO SCH (09:26)
== END 2021-12-17 11:15 | DRG 690 ==
LOC: M ED 13:53 → EDBD 13:53 → M ED INP 17:01 → M PCU 20:42
PROVIDERS: ADMIT General Practice; ATTEND General Practice
DX: N39.0 Urinary tract infection, site not specified (principal); I69.351 Hemiplegia and hemiparesis following cerebral infarction affecting right dominant side; E87.2 Acidosis; N17.9 Acute kidney failure, unspecified; I48.20 Chronic atrial fibrillation, unspecified; E46 Unspecified protein-calorie malnutrition; G93.40 Encephalopathy, unspecified; I10 Essential (primary) hypertension; E11.9 Type 2 diabetes mellitus without complications; D72.829 Elevated white blood cell count, unspecified; Z20.822 Contact with and (suspected) exposure to COVID-19; I69.391 Dysphagia following cerebral infarction; R62.7 Adult failure to thrive; I25.10 Atherosclerotic heart disease of native coronary artery without angina pectoris; Z95.5 Presence of coronary angioplasty implant and graft; E78.5 Hyperlipidemia, unspecified; Z79.01 Long term (current) use of anticoagulants; Z79.82 Long term (current) use of aspirin; Z79.84 Long term (current) use of oral hypoglycemic drugs; Z79.899 Other long term (current) drug therapy; R10.11 Right upper quadrant pain; E86.0 Dehydration

== ENCOUNTER → 2021-12-23 | Outpatient (REF) ==
[~2021-12-23] MED LIST changes: +LEVO250T3 PO; +MAGN400T2 PO; +RAME8TAB2 PO
[2021-12-23 11:00] LABS: HEMATOCRIT 35.1 % (36.0-47.0); HEMOGLOBIN 11.7 g/dl (12.0-15.5); MEAN CORPUSCULAR HEMOGLOBIN 32.3 pg (27.0-33.0); MEAN CORPUSCULAR HGB CONC 33.3 g/dl (32.0-36.5); PLATELET COUNT, AUTOMATED 315 10^3/uL (150-450); RED BLOOD COUNT 3.62 10^6/uL (4.00-5.40); WHITE BLOOD COUNT 9.8 10^3/uL (4.0-10.0)
[2021-12-23 11:25] LABS: CALCIUM LEVEL 9.4 MG/DL (8.8-10.2); CREATININE FOR GFR 1.04 MG/DL (0.55-1.30); POTASSIUM SERUM 4.7 MEQ/L (3.5-5.1)
== END ==
PROVIDERS: ATTEND Internal Medicine
DX: Z79.899 Other long term (current) drug therapy (principal)

== ENCOUNTER → 2021-12-29 | Outpatient (REF) | payer MEDICARE, OTHER | LOC: M LAB 02:05 → EDSTATUS 15:45 | PROVIDERS: ATTEND Internal Medicine | DX: R19.7 Diarrhea, unspecified (principal) ==

== ENCOUNTER → 2021-12-29 | Outpatient (REF) | payer MEDICARE, OTHER ==
[2021-12-29 13:29] LABS: BASO # 0.1 10^3/uL (0.0-0.2); BASO % 0.3 % (0.0-1.0); EOS # 0.2 10^3/uL (0.0-0.5); EOS % 0.9 % (0.0-3.0); HEMATOCRIT 33.2 % (36.0-47.0); HEMOGLOBIN 11.1 g/dl (12.0-15.5); LYMPH # 2.9 10^3/uL (1.5-5.0); LYMPH % 15.5 % (24.0-44.0); MEAN CORPUSCULAR HEMOGLOBIN 32.9 pg (27.0-33.0); MEAN CORPUSCULAR HGB CONC 33.4 g/dl (32.0-36.5); MEAN CORPUSCULAR VOLUME 98.5 fl (80.0-96.0); MONO % 9.4 % (2.0-8.0); NEUTROPHILS # 13.7 10^3/uL (1.5-8.5); NEUTROPHILS % 73.4 % (36.0-66.0); PLATELET COUNT, AUTOMATED 239 10^3/uL (150-450); RED BLOOD COUNT 3.37 10^6/uL (4.00-5.40); WHITE BLOOD COUNT 18.7 10^3/uL (4.0-10.0)
[2021-12-29 13:38] LABS: MONO # 1.8 10^3/uL (0.0-0.8)
[2021-12-29 13:57] LABS: CALCIUM LEVEL 9.2 MG/DL (8.8-10.2); CREATININE FOR GFR 0.98 MG/DL (0.55-1.30); GLOMERULAR FILTRATION RATE 57.8 (>32)
== END ==
PROVIDERS: ATTEND Physician Assistant
DX: A04.72 Enterocolitis due to Clostridium difficile, not specified as recurrent (principal); Z79.899 Other long term (current) drug therapy

== ENCOUNTER → 2021-12-29 | Outpatient (REF) | PROVIDERS: ATTEND Physician Assistant | DX: R19.7 Diarrhea, unspecified (principal) ==

== ENCOUNTER → 2022-01-05 | Outpatient (REF) | payer MEDICARE, OTHER ==
[2022-01-05 15:41] LABS: HEMATOCRIT 36.4 % (36.0-47.0); MEAN CORPUSCULAR HEMOGLOBIN 33.2 pg (27.0-33.0); MEAN CORPUSCULAR VOLUME 100.8 fl (80.0-96.0); PLATELET COUNT, AUTOMATED 266 10^3/uL (150-450); RED BLOOD COUNT 3.61 10^6/uL (4.00-5.40); WHITE BLOOD COUNT 10.3 10^3/uL (4.0-10.0)
[2022-01-05 17:23] LABS: BLOOD UREA NITROGEN 25 MG/DL (7-18); CALCIUM LEVEL 9.5 MG/DL (8.8-10.2); CARBON DIOXIDE LEVEL 23 MEQ/L (21-32); CHLORIDE LEVEL 102 MEQ/L (98-107); CREATININE FOR GFR 0.94 MG/DL (0.55-1.30); GLOMERULAR FILTRATION RATE > 60.0 (>32); GLUCOSE, FASTING 129 MG/DL (70-100); POTASSIUM SERUM 5.3 MEQ/L (3.5-5.1); SODIUM LEVEL 135 MEQ/L (136-145)
== END ==
PROVIDERS: ATTEND Internal Medicine
DX: A04.72 Enterocolitis due to Clostridium difficile, not specified as recurrent (principal); Z79.899 Other long term (current) drug therapy

== ENCOUNTER → 2022-01-06 | Outpatient (REF) | PROVIDERS: ATTEND Internal Medicine | DX: E87.5 Hyperkalemia (principal) ==

== ENCOUNTER → 2022-01-12 | Outpatient (REF) ==
[2022-01-12 09:22] LABS: BLOOD UREA NITROGEN 25 MG/DL (7-18); CALCIUM LEVEL 9.7 MG/DL (8.8-10.2); CARBON DIOXIDE LEVEL 22 MEQ/L (21-32); CHLORIDE LEVEL 104 MEQ/L (98-107); CREATININE FOR GFR 0.93 MG/DL (0.55-1.30); GLOMERULAR FILTRATION RATE > 60.0 (>32); GLUCOSE, FASTING 123 MG/DL (70-100); POTASSIUM SERUM 4.7 MEQ/L (3.5-5.1); SODIUM LEVEL 136 MEQ/L (136-145)
== END ==
PROVIDERS: ATTEND Internal Medicine
DX: M79.609 Pain in unspecified limb (principal)

== ENCOUNTER → 2022-01-27 | Outpatient (REF) ==
[2022-01-27 13:04] LABS: HEMATOCRIT 36.2 % (36.0-47.0); HEMOGLOBIN 11.9 g/dl (12.0-15.5); MEAN CORPUSCULAR HEMOGLOBIN 32.9 pg (27.0-33.0); MEAN CORPUSCULAR HGB CONC 32.9 g/dl (32.0-36.5); PLATELET COUNT, AUTOMATED 192 10^3/uL (150-450); RED BLOOD COUNT 3.62 10^6/uL (4.00-5.40); WHITE BLOOD COUNT 9.9 10^3/uL (4.0-10.0)
[2022-01-27 13:28] LABS: BLOOD UREA NITROGEN 34 MG/DL (7-18); CALCIUM LEVEL 9.8 MG/DL (8.8-10.2); CARBON DIOXIDE LEVEL 28 MEQ/L (21-32); CHLORIDE LEVEL 102 MEQ/L (98-107); CREATININE FOR GFR 0.92 MG/DL (0.55-1.30); GLOMERULAR FILTRATION RATE > 60.0 (>32); GLUCOSE, FASTING 116 MG/DL (70-100); MAGNESIUM LEVEL 2.3 MG/DL (1.8-2.4); POTASSIUM SERUM 4.8 MEQ/L (3.5-5.1); SODIUM LEVEL 137 MEQ/L (136-145)
== END ==
PROVIDERS: ATTEND Internal Medicine
DX: Z79.899 Other long term (current) drug therapy (principal)

== ENCOUNTER → 2022-02-02 | Outpatient (REF) | PROVIDERS: ATTEND Physician Assistant | DX: Z20.822 Contact with and (suspected) exposure to COVID-19 (principal) ==

== ENCOUNTER → 2022-02-24 | Outpatient (REF) | payer MEDICARE, OTHER | PROVIDERS: ATTEND Internal Medicine | DX: I50.9 Heart failure, unspecified (principal); Z53.9 Procedure and treatment not carried out, unspecified reason ==

== ENCOUNTER → 2022-05-17 | Outpatient (REF) | payer MEDICARE, OTHER ==
[~2022-05-17] MED LIST changes: +LEVO1TAB38 PO; -LEVO250T3 PO
[2022-05-17 18:35] LABS: APPEARANCE, URINE MANUAL TURBID (CLEAR); COLOR, URINE MANUAL RED (YELLOW)
[2022-05-17 18:36] LABS: PH,URINE MAN 6.5 UNITS (5.0 - 7.0); SPECIFIC GRAVITY,URINE MANUAL 1.015 (1.002-1.035)
[2022-05-17 18:37] LABS: BILIRUBIN, URINE MANUAL NEGATIVE (NEGATIVE); BLOOD URINE MANUAL POSITIVE (NEGATIVE); GLUCOSE, URINE (UA) MANUAL NEGATIVE (NEGATIVE); KETONE, URINE MANUAL NEGATIVE (NEGATIVE); LEUKOCYTE ESTERASE, URINE MAN POSITIVE (NEGATIVE); NITRITE, URINE MANUAL NEGATIVE (NEGATIVE); PROTEIN, URINE MANUAL 2+ mg/dL (NEGATIVE); UROBILINOGEN, URINE MANUAL NORMAL (NORMAL)
[2022-05-17 18:42] LABS: RBC, URINE TNTC /hpf (0-3); WBC, URINE TNTC /hpf (0-3)
[2022-05-17 18:43] LABS: BACTERIA, URINE MOD AMOUNT; HYALINE CAST, URINE NONE SEEN /lpf (0-1); SQUAMOUS EPITHELIAL CELL URINE SMALL AMOUNT /hpf (SMALL AMT)
== END ==
LOC: M LAB REF 16:06
PROVIDERS: ATTEND Physician Assistant Medical
DX: N39.0 Urinary tract infection, site not specified (principal)

== ENCOUNTER → 2022-06-01 | Outpatient (REF) | payer MEDICARE, OTHER ==
[2022-06-02 10:36] LABS: APPEARANCE, URINE MANUAL TURBID (CLEAR); COLOR, URINE MANUAL BROWN (YELLOW); GLUCOSE, URINE (UA) MANUAL NEGATIVE (NEGATIVE); PROTEIN, URINE MANUAL 3+ mg/dL (NEGATIVE)
[2022-06-02 10:37] LABS: BILIRUBIN, URINE MANUAL NEGATIVE (NEGATIVE); BLOOD URINE MANUAL POSITIVE (NEGATIVE); KETONE, URINE MANUAL 1+ mg/dL (NEGATIVE); LEUKOCYTE ESTERASE, URINE MAN POSITIVE (NEGATIVE); NITRITE, URINE MANUAL NEGATIVE (NEGATIVE); UROBILINOGEN, URINE MANUAL 4 MG mg/dl (NORMAL)
[2022-06-02 10:38] LABS: WBC, URINE TNTC /hpf (0-3)
[2022-06-02 10:39] LABS: BACTERIA, URINE LARGE AMOUNT; SQUAMOUS EPITHELIAL CELL URINE NONE SEEN /hpf (SMALL AMT)
[2022-06-02 10:40] LABS: HYALINE CAST, URINE NONE SEEN /lpf (0-1)
== END ==
LOC: M LAB REF 08:41
PROVIDERS: ATTEND Physician Assistant Medical
DX: N39.0 Urinary tract infection, site not specified (principal)

== ENCOUNTER → 2022-06-30 | Outpatient (REF) | payer MEDICARE, OTHER ==
[~2022-06-30] MED LIST changes: +CEFD300C41 PO; +LISI2.5T9 PO
[2022-06-30 19:44] LABS: BACTERIA, URINE NONE SEEN; HYALINE CAST, URINE NONE SEEN /lpf (0-1); SQUAMOUS EPITHELIAL CELL URINE NONE SEEN /hpf (SMALL AMT); WBC, URINE 15-20 /hpf (0-3)
== END ==
LOC: M SMT 17:24
PROVIDERS: ATTEND Specialist
DX: R30.0 Dysuria (principal)

== ENCOUNTER 2022-07-05 13:46 | Emergency (ER) | payer MEDICARE, OTHER ==
[~2022-07-05] VITALS: Ht 147.3 cm; Wt 43.2 kg
[~2022-07-05 13:46] MED LIST changes: -CEFD300C41 PO; -LISI2.5T9 PO
[2022-07-05] MEDS ORDERED: LABETALOL 100MG/20ML VIAL IV STA (14:28)
[2022-07-05 15:06] LABS: BASO % 0.4 % (0.0-1.0); EOS # 0.3 10^3/uL (0.0-0.5); EOS % 3.3 % (0.0-3.0); HEMATOCRIT 39.9 % (36.0-47.0); HEMOGLOBIN 13.7 g/dl (12.0-15.5); LYMPH # 2.8 10^3/uL (1.5-5.0); LYMPH % 26.7 % (24.0-44.0); MEAN CORPUSCULAR HEMOGLOBIN 33.2 pg (27.0-33.0); MEAN CORPUSCULAR HGB CONC 34.3 g/dl (32.0-36.5); MEAN CORPUSCULAR VOLUME 96.6 fl (80.0-96.0); MONO % 9.6 % (2.0-8.0); NEUTROPHILS # 6.2 10^3/uL (1.5-8.5); NEUTROPHILS % 59.6 % (36.0-66.0); PLATELET COUNT, AUTOMATED 181 10^3/uL (150-450); RED BLOOD COUNT 4.13 10^6/uL (4.00-5.40); WHITE BLOOD COUNT 10.3 10^3/uL (4.0-10.0)
[2022-07-05] MEDS ORDERED: METOPROLOL TART 25 MG TABLET PO ONE (15:10)
[2022-07-05 15:45] LABS: RSV AMPLIFICATION NEGATIVE (NEGATIVE)
[2022-07-05 16:10] LABS: ALBUMIN 3.6 GM/DL (3.2-5.2); BILIRUBIN,DIRECT 0.3 MG/DL (0.0-0.2); BILIRUBIN,TOTAL 1.1 MG/DL (0.2-1.0); CALCIUM LEVEL 9.8 MG/DL (8.8-10.2); CREATININE FOR GFR 1.05 MG/DL (0.55-1.30); GLOMERULAR FILTRATION RATE 53.3 (>32); POTASSIUM SERUM 4.2 MEQ/L (3.5-5.1); THYROID STIMULATING HORMONE 1.2 uIU/ML (0.358-3.740); TOTAL PROTEIN 7.3 GM/DL (6.4-8.2)
[2022-07-05 16:11] LABS: CPK CREATINE PHOSPHOKINASE 30 U/L (26-192)
[2022-07-05] MEDS ORDERED: lisinopriL 5 MG TAB PO ONE (17:10)
[2022-07-05 17:11] LABS: APPEARANCE, URINE MANUAL CLOUDY (CLEAR); COLOR, URINE MANUAL YELLOW (YELLOW)
[2022-07-05 17:12] LABS: BILIRUBIN, URINE MANUAL NEGATIVE (NEGATIVE); BLOOD URINE MANUAL POSITIVE (NEGATIVE); GLUCOSE, URINE (UA) MANUAL NEGATIVE (NEGATIVE); KETONE, URINE MANUAL NEGATIVE (NEGATIVE); LEUKOCYTE ESTERASE, URINE MAN POSITIVE (NEGATIVE); NITRITE, URINE MANUAL POSITIVE (NEGATIVE); PROTEIN, URINE MANUAL 3+ mg/dL (NEGATIVE); UROBILINOGEN, URINE MANUAL NORMAL (NORMAL)
[2022-07-05 17:28] VITALS: BP 181/73
[2022-07-05 17:46] LABS: BACTERIA, URINE LARGE AMOUNT; SQUAMOUS EPITHELIAL CELL URINE SMALL AMOUNT /hpf (SMALL AMT); TRANSITIONAL EPI CELLS, URINE SMALL AMOUNT /hpf; WBC, URINE TNTC /hpf (0-3)
[2022-07-05 17:47] LABS: HYALINE CAST, URINE 0-1 /lpf (0-1)
[2022-07-05] MEDS ORDERED: CEFDINIR 300 MG CAP (OMNICEF) PO ONE ×2 (18:15→18:40)
[2022-07-05 18:30] VITALS: BP 193/92
[2022-07-05] MEDS ORDERED: LISI2.5T9 PO (18:30)
[2022-07-05] MEDS ORDERED: CEFD300C41 PO (18:30)
== END 2022-07-05 18:52 | disposition home or self-care (01) ==
LOC: M ED 13:46
DX: N39.0 Urinary tract infection, site not specified (principal); I10 Essential (primary) hypertension; I48.91 Unspecified atrial fibrillation; E11.9 Type 2 diabetes mellitus without complications; I25.9 Chronic ischemic heart disease, unspecified; Z79.01 Long term (current) use of anticoagulants; Z79.84 Long term (current) use of oral hypoglycemic drugs; Z79.899 Other long term (current) drug therapy; Z79.82 Long term (current) use of aspirin

== ENCOUNTER → 2022-07-13 | Outpatient (CLI) | payer MEDICARE, OTHER ==
[~2022-07-13] MED LIST changes: +CEFD300C41 PO; +LISI2.5T9 PO
== END ==
LOC: M RAD 12:08
PROVIDERS: ATTEND Specialist
DX: N13.30 Unspecified hydronephrosis (principal); N28.1 Cyst of kidney, acquired; N20.0 Calculus of kidney

== ENCOUNTER → 2022-07-23 | Outpatient (REF) | payer MEDICARE, OTHER ==
[2022-07-23 18:04] LABS: APPEARANCE, URINE MANUAL CLOUDY (CLEAR); COLOR, URINE MANUAL YELLOW (YELLOW); SPECIFIC GRAVITY,URINE MANUAL 1.015 (1.002-1.035)
[2022-07-23 18:05] LABS: BILIRUBIN, URINE MANUAL NEGATIVE (NEGATIVE); BLOOD URINE MANUAL POSITIVE (NEGATIVE); GLUCOSE, URINE (UA) MANUAL NEGATIVE (NEGATIVE); KETONE, URINE MANUAL NEGATIVE (NEGATIVE); LEUKOCYTE ESTERASE, URINE MAN POSITIVE (NEGATIVE); NITRITE, URINE MANUAL NEGATIVE (NEGATIVE); PROTEIN, URINE MANUAL 1+ mg/dL (NEGATIVE); UROBILINOGEN, URINE MANUAL NORMAL (NORMAL)
[2022-07-23 18:22] LABS: RBC, URINE 30-40 /hpf (0-3)
[2022-07-23 18:23] LABS: BACTERIA, URINE SMALL AMOUNT; SQUAMOUS EPITHELIAL CELL URINE SMALL AMOUNT /hpf (SMALL AMT); TRANSITIONAL EPI CELLS, URINE SMALL AMOUNT /hpf; WBC, URINE 30-40 /hpf (0-3)
[2022-07-23 18:24] LABS: HYALINE CAST, URINE NONE SEEN /lpf (0-1); MUCUS, URINE SMALL AMOUNT (NEGATIVE)
== END ==
LOC: M SMT 17:19
PROVIDERS: ATTEND Physician Assistant
DX: N20.0 Calculus of kidney (principal)

== ENCOUNTER → 2022-08-02 | Outpatient (CLI) | payer MEDICARE, OTHER ==
[~2022-08-02] MED LIST changes: +ISOVUE-370 76% 100ML VIAL As Ordered ONE
== END ==
LOC: M RAD 17:18
PROVIDERS: ATTEND Nurse Practitioner Women's Health
DX: N13.30 Unspecified hydronephrosis (principal)
CPT/HCPCS: 74178; Q9967

== ENCOUNTER → 2022-08-31 | Outpatient (REF) | payer OTHER, MEDICARE ==
[~2022-08-31] MED LIST changes: -ISOVUE-370 76% 100ML VIAL As Ordered ONE
[2022-08-31 22:49] LABS: APPEARANCE, URINE MANUAL HAZY (CLEAR); COLOR, URINE MANUAL YELLOW (YELLOW)
[2022-08-31 22:51] LABS: BILIRUBIN, URINE MANUAL NEGATIVE (NEGATIVE); BLOOD URINE MANUAL POSITIVE (NEGATIVE); GLUCOSE, URINE (UA) MANUAL NEGATIVE (NEGATIVE); KETONE, URINE MANUAL NEGATIVE (NEGATIVE); LEUKOCYTE ESTERASE, URINE MAN POSITIVE (NEGATIVE); NITRITE, URINE MANUAL POSITIVE (NEGATIVE); PROTEIN, URINE MANUAL 1+ mg/dL (NEGATIVE); UROBILINOGEN, URINE MANUAL NORMAL (NORMAL)
[2022-08-31 23:01] LABS: RBC, URINE 20-30 /hpf (0-3); SQUAMOUS EPITHELIAL CELL URINE SMALL AMOUNT /hpf (SMALL AMT); TRANSITIONAL EPI CELLS, URINE SMALL AMOUNT /hpf; WBC, URINE 40-50 /hpf (0-3)
[2022-08-31 23:02] LABS: BACTERIA, URINE LARGE AMOUNT; HYALINE CAST, URINE NONE SEEN /lpf (0-1)
== END ==
LOC: M LAB REF 22:38
PROVIDERS: ATTEND Physician Assistant Medical
DX: N39.0 Urinary tract infection, site not specified (principal)

== ENCOUNTER → 2022-09-14 | Outpatient (REF) | payer MEDICARE, OTHER ==
[2022-09-14 21:11] LABS: APPEARANCE, URINE MANUAL CLOUDY (CLEAR); COLOR, URINE MANUAL YELLOW (YELLOW)
[2022-09-14 21:14] LABS: BILIRUBIN, URINE MANUAL NEGATIVE (NEGATIVE); BLOOD URINE MANUAL POSITIVE (NEGATIVE); GLUCOSE, URINE (UA) MANUAL NEGATIVE (NEGATIVE); KETONE, URINE MANUAL NEGATIVE (NEGATIVE); LEUKOCYTE ESTERASE, URINE MAN POSITIVE (NEGATIVE); NITRITE, URINE MANUAL NEGATIVE (NEGATIVE); PROTEIN, URINE MANUAL 1+ mg/dL (NEGATIVE); UROBILINOGEN, URINE MANUAL NORMAL (NORMAL)
[2022-09-14 21:31] LABS: BACTERIA, URINE NONE SEEN; HYALINE CAST, URINE NONE SEEN /lpf (0-1); RBC, URINE TNTC /hpf (0-3); SQUAMOUS EPITHELIAL CELL URINE SMALL AMOUNT /hpf (SMALL AMT); WBC, URINE TNTC /hpf (0-3)
[2022-09-14 21:32] LABS: YEAST, URINE LARGE AMOUNT
== END ==
LOC: M SMT 17:09
PROVIDERS: ATTEND Urology
DX: R31.0 Gross hematuria (principal); N30.90 Cystitis, unspecified without hematuria; Z79.01 Long term (current) use of anticoagulants; Z79.84 Long term (current) use of oral hypoglycemic drugs; Z79.890 Hormone replacement therapy; Z79.899 Other long term (current) drug therapy; Z88.8 Allergy status to other drugs, medicaments and biological substances

== ENCOUNTER → 2022-10-09 | Outpatient (REF) | payer MEDICARE, OTHER ==
[2022-10-09 19:06] LABS: APPEARANCE, URINE MANUAL HAZY (CLEAR); COLOR, URINE MANUAL YELLOW (YELLOW)
[2022-10-09 19:07] LABS: BILIRUBIN, URINE MANUAL NEGATIVE (NEGATIVE); BLOOD URINE MANUAL POSITIVE (NEGATIVE); GLUCOSE, URINE (UA) MANUAL NEGATIVE (NEGATIVE); KETONE, URINE MANUAL NEGATIVE (NEGATIVE); LEUKOCYTE ESTERASE, URINE MAN POSITIVE (NEGATIVE); NITRITE, URINE MANUAL POSITIVE (NEGATIVE); PROTEIN, URINE MANUAL 2+ mg/dL (NEGATIVE); UROBILINOGEN, URINE MANUAL NORMAL (NORMAL)
[2022-10-09 19:22] LABS: BACTERIA, URINE LARGE AMOUNT; HYALINE CAST, URINE NONE SEEN /lpf (0-1); RENAL EPITHELIAL CELLS, URINE SMALL AMOUNT /hpf; SQUAMOUS EPITHELIAL CELL URINE SMALL AMOUNT /hpf (SMALL AMT); WBC, URINE TNTC /hpf (0-3)
== END ==
LOC: M LAB REF 18:46
PROVIDERS: ATTEND Physician Assistant Medical
DX: N39.0 Urinary tract infection, site not specified (principal)

== ENCOUNTER 2023-02-18 21:50 | Inpatient (IN) | payer MEDICARE, OTHER ==
[~2023-02-18] VITALS: Ht 154.9 cm; Wt 52.8 kg
[~2023-02-18 21:50] MED LIST changes: -CENT1TAB PO; -LEVO88TA3 PO; -MELA3TAB30 PO
[2023-02-18] MEDS ORDERED: NS IV ONE (22:15)
[2023-02-18 22:35] LABS: BASO % 0.2 % (0.0-1.0); EOS % 0.1 % (0.0-3.0); HEMATOCRIT 30.4 % (36.0-47.0); HEMOGLOBIN 9.8 g/dl (12.0-15.5); LYMPH # 3.3 10^3/uL (1.5-5.0); LYMPH % 28.7 % (24.0-44.0); MEAN CORPUSCULAR HEMOGLOBIN 31.4 pg (27.0-33.0); MEAN CORPUSCULAR HGB CONC 32.2 g/dl (32.0-36.5); MEAN CORPUSCULAR VOLUME 97.4 fl (80.0-96.0); MONO % 17.5 % (2.0-8.0); NEUTROPHILS # 6.2 10^3/uL (1.5-8.5); NEUTROPHILS % 53.3 % (36.0-66.0); PLATELET COUNT, AUTOMATED 148 10^3/uL (150-450); RED BLOOD COUNT 3.12 10^6/uL (4.00-5.40); WHITE BLOOD COUNT 11.6 10^3/uL (4.0-10.0)
[2023-02-18 22:52] LABS: INR 1.9; PROTHROMBIN TIME 22.1 SECONDS (12.5-14.5)
[2023-02-18 22:58] LABS: CK-MB VALUE MASS < 1.0 NG/ML (<3.6)
[2023-02-18 23:00] LABS: AMYLASE 26 U/L (30-118); CPK CREATINE PHOSPHOKINASE < 15 U/L (34-145)
[2023-02-18 23:01] LABS: ALBUMIN 2.7 G/DL (3.2-5.2); ALKALINE PHOSPHATASE 67 U/L (46-116); ALT/SGPT 10 U/L (7.0-40); AST/SGOT 11 U/L (<34); BILIRUBIN,DIRECT 0.7 MG/DL (<0.4); BILIRUBIN,TOTAL 1.8 MG/DL (0.3-1.2); BLOOD UREA NITROGEN 32 MG/DL (9-23); CALCIUM LEVEL 8.5 MG/DL (8.3-10.6); CARBON DIOXIDE LEVEL 24 MMOL/L (20-31); CHLORIDE LEVEL 108 MMOL/L (98-107); CREATININE FOR GFR 1.69 MG/DL (0.55-1.30); GLOMERULAR FILTRATION RATE 30.7 (>32); GLUCOSE, FASTING 193 MG/DL (74-106); POTASSIUM SERUM 4.2 MMOL/L (3.5-5.1); SODIUM LEVEL 142 MMOL/L (136-145); TOTAL PROTEIN 5.7 G/DL (5.7-8.2)
[2023-02-19] VITALS (38 sets, daily range): BP systolic 62–134; BP diastolic 38–96; TEMP 96.4–102.2; O2SAT 92–100
[2023-02-19 00:41] LABS: AMORPHOUS SEDIMENT SMALL (NEGATIVE); APPEARANCE, URINE TURBID (CLEAR); BACTERIA, URINE AUTO 3+ (NEGATIVE); BILIRUBIN, URINE AUTO NEGATIVE (NEGATIVE); BLOOD, URINE BLOOD 2+ (NEGATIVE); COLOR, URINE AMBER (YELLOW); GLUCOSE, URINE (UA) AUTO NEGATIVE (NEGATIVE); KETONE, URINE AUTO NEGATIVE (NEGATIVE); LEUKOCYTE ESTERASE, URINE AUTO 3+ (NEGATIVE); NITRITE, URINE AUTO NEGATIVE (NEGATIVE); PROTEIN, URINE AUTO 3+ mg/dL (NEGATIVE); RBC, URINE AUTO 73 /HPF (0-3); SPECIFIC GRAVITY URINE AUTO 1.012 (1.002-1.035); SQUAMOUS EPITHELIAL CELL UR AU 1 /HPF (0-6); UROBILINOGEN, URINE AUTO 0.2 mg/dL (0.0-2.0); WBC, URINE AUTO TNTC /HPF (0-3)
[2023-02-19 01:18] LABS: CK-MB VALUE MASS < 1.0 NG/ML (<3.6)
[2023-02-19] MEDS ORDERED: cefTRIAXone SOD 1 GM in D5W MINI-BAG PLUS 50 ML IV ONE (01:20)
[2023-02-19 01:21] LABS: CPK CREATINE PHOSPHOKINASE 24 U/L (34-145); MB/CK RELATIVE INDEX 4.16 (< OR =4)
[2023-02-19] MEDS ORDERED: LEVO88TA3 PO (01:57)
[2023-02-19] MEDS ORDERED: METO1TAB7 PO (01:57)
[2023-02-19] MEDS ORDERED: MELA3TAB30 PO (01:57)
[2023-02-19] MEDS ORDERED: CENT1TAB PO (01:57)
[2023-02-19] MEDS ORDERED: NS 1,000 ML IV SCH ×2 (02:00→09:30)
[2023-02-19] MEDS ORDERED: HOME MED LIST COMPLETE! XX SCH (02:00)
[2023-02-19] MEDS ORDERED: GLUCAGON INJ 1MG VIAL SC PRN (02:05)
[2023-02-19] MEDS ORDERED: DEXTROSE 50% 50ML SYRINGE IV PRN (02:05)
[2023-02-19] MEDS ORDERED: GLUCOSE 4GM CHEW TABLET PO PRN (02:05)
[2023-02-19] MEDS ORDERED: NS 500 ML IV ONE ×4 (02:10→15:30)
[2023-02-19 02:59] LABS: RSV AMPLIFICATION NEGATIVE (NEGATIVE)
[2023-02-19 03:44] LABS: CREATININE,RANDOM URINE 43.5 MG/DL
[2023-02-19 03:49] LABS: TOTAL PROTEIN,RANDOM URINE 480.7 MG/DL (0.0-14.0)
[2023-02-19] MEDS: LEVOTHYROXINE 88MCG TABLET (0.088 MG) PO SCH (05:05)
[2023-02-19] MEDS: ASPIRIN 81MG ENTERIC TABLET PO SCH (08:12)
[2023-02-19] MEDS: APIXABAN 2.5 MG TAB (ELIQUIS) PO SCH ×2 (08:12→20:28)
[2023-02-19] MEDS: INSULIN LISPRO (NovoLOG) PER UNIT SC SCH ×2 (08:13→12:00)
[2023-02-19 08:22] LABS: BASO % 0.2 % (0.0-1.0); EOS % 0.2 % (0.0-3.0); HEMATOCRIT 34.4 % (36.0-47.0); HEMOGLOBIN 10.9 g/dl (12.0-15.5); LYMPH # 2.5 10^3/uL (1.5-5.0); LYMPH % 22.8 % (24.0-44.0); MEAN CORPUSCULAR HEMOGLOBIN 31.6 pg (27.0-33.0); MEAN CORPUSCULAR HGB CONC 31.7 g/dl (32.0-36.5); MEAN CORPUSCULAR VOLUME 99.7 fl (80.0-96.0); MONO % 16.2 % (2.0-8.0); NEUTROPHILS # 6.6 10^3/uL (1.5-8.5); NEUTROPHILS % 60.3 % (36.0-66.0); PLATELET COUNT, AUTOMATED 141 10^3/uL (150-450); RED BLOOD COUNT 3.45 10^6/uL (4.00-5.40)
[2023-02-19 08:43] LABS: MONO # 1.8 10^3/uL (0.0-0.8)
[2023-02-19 08:54] LABS: CALCIUM LEVEL 8.2 MG/DL (8.3-10.6); CREATININE FOR GFR 1.6 MG/DL (0.55-1.30); GLOMERULAR FILTRATION RATE 32.7 (>32); POTASSIUM SERUM 4.7 MMOL/L (3.5-5.1)
[2023-02-19] MEDS ORDERED: GABAPENTIN 300 MG CAP PO SCH (09:00)
[2023-02-19] MEDS: METOPROLOL SUCC (TopROL XL) 50MG **XL** TAB PO SCH ×3 (09:00→11:22)
[2023-02-19] MEDS ORDERED: DIGOXIN INJ 0.5 MG/2 ML AMP IV ONE (09:15)
[2023-02-19] MEDS ORDERED: PIPERACILLIN/TAZOBACTAM SOD 3.375 GM in D5W MINI-BAG PLUS 50 ML IV SCH (10:00)
[2023-02-19] MEDS ORDERED: SODIUM CHLORIDE 0.9% 1000ML IV ONE (10:15)
[2023-02-19 10:21] LABS: C REACTIVE PROTEIN QUANTITATIV 23.4 MG/DL (<1.0)
[2023-02-19] MEDS: PIPERACILLIN/TAZOBACTAM SOD 2.25 GM in D5W MINI-BAG PLUS 50 ML IV SCH ×3 (12:01→22:44)
[2023-02-19] MEDS: ACETAMINOPHEN TAB 650MG DOSE (2X325MG) PO PRN ×2 (14:16→14:54)
[2023-02-19] MEDS: ATORVASTATIN 20 MG TAB PO SCH (14:16)
[2023-02-19] MEDS: NOREPINEPHRINE 4MG IN D5 250ML 4 MG in IV 1 EA IV SCH ×2 (15:30)
[2023-02-19] MEDS: LR 1,000 ML IV SCH (17:19)
[2023-02-19 18:33] LABS: CALCIUM LEVEL 7.5 MG/DL (8.3-10.6); CREATININE FOR GFR 1.39 MG/DL (0.55-1.30); GLOMERULAR FILTRATION RATE 38.5 (>32); POTASSIUM SERUM 4.3 MMOL/L (3.5-5.1)
[2023-02-19] MEDS: MAGNESIUM OXIDE 400MG TAB (MAG-OX) PO SCH (20:28)
[2023-02-19] MEDS ORDERED: INSULIN LISPRO (NovoLOG) PER UNIT SC SCH (21:00)
[2023-02-20] VITALS (46 sets, daily range): BP systolic 81–195; BP diastolic 53–112; TEMP 97.1–98.6; O2SAT 89–100
[2023-02-20] MEDS: INSULIN LISPRO (NovoLOG) PER UNIT SC SCH ×5 (00:25→20:57)
[2023-02-20] MEDS: NOREPINEPHRINE 4MG IN D5 250ML 4 MG in IV 1 EA IV SCH ×2 (02:54)
[2023-02-20] MEDS: PIPERACILLIN/TAZOBACTAM SOD 2.25 GM in D5W MINI-BAG PLUS 50 ML IV SCH ×2 (04:23→11:01)
[2023-02-20 04:45] LABS: HEMATOCRIT 27.7 % (36.0-47.0); MEAN CORPUSCULAR HEMOGLOBIN 31.8 pg (27.0-33.0); MEAN CORPUSCULAR HGB CONC 32.5 g/dl (32.0-36.5); MEAN CORPUSCULAR VOLUME 97.9 fl (80.0-96.0); PLATELET COUNT, AUTOMATED 146 10^3/uL (150-450); RED BLOOD COUNT 2.83 10^6/uL (4.00-5.40)
[2023-02-20] MEDS ORDERED: cefTRIAXone SOD 1 GM in D5W MINI-BAG PLUS 50 ML IV SCH (05:00)
[2023-02-20 05:01] LABS: ALBUMIN 2.2 G/DL (3.2-5.2); BILIRUBIN,TOTAL 1.3 MG/DL (0.3-1.2); CALCIUM LEVEL 7.8 MG/DL (8.3-10.6); CREATININE FOR GFR 1.21 MG/DL (0.55-1.30); GLOMERULAR FILTRATION RATE 45.1 (>32); MAGNESIUM LEVEL 1.5 MG/DL (1.8-2.4)
[2023-02-20] MEDS: LEVOTHYROXINE 88MCG TABLET (0.088 MG) PO SCH (05:06)
[2023-02-20] MEDS: MAG SULF 1GM/100ML (MAG RUN) 1 GM in IV 1 EA IV SCH ×2 (05:33→06:56)
[2023-02-20] MEDS: LR 1,000 ML IV SCH (05:33)
[2023-02-20] MEDS: APIXABAN 2.5 MG TAB (ELIQUIS) PO SCH ×2 (08:22→21:01)
[2023-02-20] MEDS: ASPIRIN 81MG ENTERIC TABLET PO SCH (08:22)
[2023-02-20] MEDS ORDERED: METOPROLOL TART 12.5 MG PER 1/2 TAB PO SCH (09:00)
[2023-02-20] MEDS ORDERED: IPRATROPIUM 0.5MG/ALBUTEROL 2.5MG INH SOL UD 3ML (DUONEB) NEB ONE (09:30)
[2023-02-20] MEDS ORDERED: SODIUM CHLORIDE HYPERTONIC 3% 15ML NEB SOL INH ONE (09:30)
[2023-02-20] MEDS: ATORVASTATIN 20 MG TAB PO SCH (14:03)
[2023-02-20] MEDS ORDERED: METOPROLOL TART 25 MG TABLET PO ONE (15:30)
[2023-02-20] MEDS ORDERED: FUROSEMIDE 40MG/4ML VIAL IV ONE (15:55)
[2023-02-20] MEDS: PIPERACILLIN/TAZOBACTAM SOD 3.375 GM in D5W MINI-BAG PLUS 50 ML IV SCH ×2 (17:19→23:01)
[2023-02-20] MEDS ORDERED: METOPROLOL TART 50 MG TAB PO SCH ×2 (21:00)
[2023-02-20] MEDS: MAGNESIUM OXIDE 400MG TAB (MAG-OX) PO SCH (21:00)
[2023-02-21] VITALS (19 sets, daily range): BP systolic 83–146; BP diastolic 56–91; TEMP 97.3–98.5; O2SAT 93–98
[2023-02-21] MEDS: PIPERACILLIN/TAZOBACTAM SOD 3.375 GM in D5W MINI-BAG PLUS 50 ML IV SCH (04:53)
[2023-02-21 05:10] LABS: HEMATOCRIT 26.3 % (36.0-47.0); HEMOGLOBIN 8.5 g/dl (12.0-15.5); MEAN CORPUSCULAR HEMOGLOBIN 31.3 pg (27.0-33.0); MEAN CORPUSCULAR HGB CONC 32.3 g/dl (32.0-36.5); MEAN CORPUSCULAR VOLUME 96.7 fl (80.0-96.0); PLATELET COUNT, AUTOMATED 134 10^3/uL (150-450); RED BLOOD COUNT 2.72 10^6/uL (4.00-5.40); WHITE BLOOD COUNT 7.7 10^3/uL (4.0-10.0)
[2023-02-21 05:42] LABS: ALBUMIN 2.2 G/DL (3.2-5.2); BILIRUBIN,TOTAL 1.4 MG/DL (0.3-1.2); CALCIUM LEVEL 7.7 MG/DL (8.3-10.6); CREATININE FOR GFR 1.29 MG/DL (0.55-1.30); GLOMERULAR FILTRATION RATE 41.9 (>32); POTASSIUM SERUM 3.5 MMOL/L (3.5-5.1); TOTAL PROTEIN 4.9 G/DL (5.7-8.2)
[2023-02-21] MEDS: LEVOTHYROXINE 88MCG TABLET (0.088 MG) PO SCH (05:57)
[2023-02-21] MEDS ORDERED: METOPROLOL SUCC (TopROL XL) 50MG **XL** TAB PO SCH (07:00)
[2023-02-21] MEDS: INSULIN LISPRO (NovoLOG) PER UNIT SC SCH ×4 (07:45→20:27)
[2023-02-21 08:07] LABS: MAGNESIUM LEVEL 1.9 MG/DL (1.8-2.4)
[2023-02-21] MEDS: APIXABAN 2.5 MG TAB (ELIQUIS) PO SCH ×2 (09:05→20:23)
[2023-02-21] MEDS: ASPIRIN 81MG ENTERIC TABLET PO SCH (09:05)
[2023-02-21] MEDS ORDERED: DIGOXIN INJ 0.5 MG/2 ML AMP IV STA (11:42)
[2023-02-21] MEDS: diltiaZEM 125 MG in NS 100 ML IV SCH (12:33)
[2023-02-21] MEDS: ATORVASTATIN 20 MG TAB PO SCH (14:40)
[2023-02-21] MEDS: AUGMENTIN 500MG TAB PO SCH (17:20)
[2023-02-21] MEDS ORDERED: POTASSIUM CHLORIDE 10MEQ SR TABLET PO ONE (18:00)
[2023-02-21] MEDS: MAGNESIUM OXIDE 400MG TAB (MAG-OX) PO SCH (20:23)
[2023-02-22] VITALS: BP 137/80; TEMP 97; O2SAT 95
[2023-02-22] MEDS: diltiaZEM 125 MG in NS 100 ML IV SCH (00:25)
[2023-02-22 04:00] VITALS: BP 146/88; TEMP 97.3; O2SAT 97
[2023-02-22] MEDS: AUGMENTIN 500MG TAB PO SCH (05:10)
[2023-02-22] MEDS: LEVOTHYROXINE 88MCG TABLET (0.088 MG) PO SCH (05:10)
[2023-02-22 05:36] LABS: HEMATOCRIT 29.9 % (36.0-47.0); HEMOGLOBIN 9.6 g/dl (12.0-15.5); MEAN CORPUSCULAR HEMOGLOBIN 30.7 pg (27.0-33.0); MEAN CORPUSCULAR HGB CONC 32.1 g/dl (32.0-36.5); MEAN CORPUSCULAR VOLUME 95.5 fl (80.0-96.0); PLATELET COUNT, AUTOMATED 170 10^3/uL (150-450); RED BLOOD COUNT 3.13 10^6/uL (4.00-5.40); WHITE BLOOD COUNT 11.6 10^3/uL (4.0-10.0)
[2023-02-22 06:00] LABS: ALBUMIN 2.5 G/DL (3.2-5.2); BILIRUBIN,TOTAL 1.5 MG/DL (0.3-1.2); CREATININE FOR GFR 1.06 MG/DL (0.55-1.30); GLOMERULAR FILTRATION RATE 52.6 (>32); POTASSIUM SERUM 3.9 MMOL/L (3.5-5.1); TOTAL PROTEIN 5.7 G/DL (5.7-8.2)
[2023-02-22] MEDS: INSULIN LISPRO (NovoLOG) PER UNIT SC SCH ×4 (07:57→20:49)
[2023-02-22 08:00] VITALS: BP 147/82; TEMP 97.1; O2SAT 94
[2023-02-22] MEDS: APIXABAN 2.5 MG TAB (ELIQUIS) PO SCH ×2 (08:21→20:45)
[2023-02-22] MEDS: ASPIRIN 81MG ENTERIC TABLET PO SCH (08:21)
[2023-02-22] MEDS ORDERED: FUROSEMIDE 20MG/2ML VIAL IV ONE (10:00)
[2023-02-22 12:00] VITALS: BP 156/76; TEMP 96.7; O2SAT 94
[2023-02-22] MEDS: ATORVASTATIN 20 MG TAB PO SCH (15:15)
[2023-02-22 16:00] VITALS: BP 151/87; TEMP 97.4; O2SAT 94
[2023-02-22] MEDS: AUGMENTIN 875 MG TAB PO SCH (17:12)
[2023-02-22] MEDS: ACETAMINOPHEN TAB 650MG DOSE (2X325MG) PO PRN (17:17)
[2023-02-22] MEDS: ANALGESIC BALM CRM 3OZ TOP PRN (17:46)
[2023-02-22 20:00] VITALS: BP 134/68; TEMP 97.1; O2SAT 93
[2023-02-22] MEDS: MAGNESIUM OXIDE 400MG TAB (MAG-OX) PO SCH (20:45)
[2023-02-23] VITALS (27 sets, daily range): BP systolic 130–174; BP diastolic 63–105; TEMP 96.8–98; O2SAT 90–98
[2023-02-23 04:54] LABS: HEMATOCRIT 29.5 % (36.0-47.0); HEMOGLOBIN 9.8 g/dl (12.0-15.5); MEAN CORPUSCULAR HEMOGLOBIN 31.4 pg (27.0-33.0); MEAN CORPUSCULAR HGB CONC 33.2 g/dl (32.0-36.5); MEAN CORPUSCULAR VOLUME 94.6 fl (80.0-96.0); PLATELET COUNT, AUTOMATED 176 10^3/uL (150-450); RED BLOOD COUNT 3.12 10^6/uL (4.00-5.40); WHITE BLOOD COUNT 12.5 10^3/uL (4.0-10.0)
[2023-02-23 05:23] LABS: ALBUMIN 2.6 G/DL (3.2-5.2); BILIRUBIN,TOTAL 1.7 MG/DL (0.3-1.2); CALCIUM LEVEL 7.9 MG/DL (8.3-10.6); CREATININE FOR GFR 0.99 MG/DL (0.55-1.30); GLOMERULAR FILTRATION RATE 56.9 (>32); MAGNESIUM LEVEL 1.7 MG/DL (1.8-2.4); POTASSIUM SERUM 3.8 MMOL/L (3.5-5.1); TOTAL PROTEIN 5.9 G/DL (5.7-8.2)
[2023-02-23] MEDS ORDERED: NS 250 ML IV ONE (05:25)
[2023-02-23] MEDS ORDERED: SODIUM CHLORIDE 0.9% 1000ML IV ONE ×2 (06:00→19:20)
[2023-02-23] MEDS ORDERED: DIGOXIN INJ 0.5 MG/2 ML AMP IV STA (06:02)
[2023-02-23] MEDS ORDERED: diltiaZEM 125 MG in NS 100 ML IV SCH (08:00)
[2023-02-23] MEDS: APIXABAN 2.5 MG TAB (ELIQUIS) PO SCH ×2 (09:22→20:45)
[2023-02-23] MEDS: AUGMENTIN 875 MG TAB PO SCH ×2 (09:22→17:44)
[2023-02-23] MEDS: ASPIRIN 81MG ENTERIC TABLET PO SCH (09:22)
[2023-02-23] MEDS: LEVOTHYROXINE 88MCG TABLET (0.088 MG) PO SCH (09:22)
[2023-02-23] MEDS: MAG SULF 1GM/100ML (MAG RUN) 1 GM in IV 1 EA IV SCH ×2 (09:22→10:44)
[2023-02-23] MEDS: INSULIN LISPRO (NovoLOG) PER UNIT SC SCH ×4 (09:37→20:46)
[2023-02-23 09:59] LABS: BILIRUBIN,DIRECT 0.7 MG/DL (<0.4)
[2023-02-23] MEDS ORDERED: NS 500 ML IV ONE (14:00)
[2023-02-23 14:56] LABS: C REACTIVE PROTEIN QUANTITATIV 16.8 MG/DL (<1.0)
[2023-02-23 15:00] LABS: C REACTIVE PROTEIN QUANTITATIV 19.5 MG/DL (<1.0)
[2023-02-23 15:01] LABS: C REACTIVE PROTEIN QUANTITATIV 25.3 MG/DL (<1.0)
[2023-02-23] MEDS ORDERED: LIDOCAINE 1% MDV 20ML VIAL As Ordered ONE (15:04)
[2023-02-23 15:10] LABS: C REACTIVE PROTEIN QUANTITATIV 13.3 MG/DL (<1.0)
[2023-02-23] MEDS: ATORVASTATIN 20 MG TAB PO SCH (16:14)
[2023-02-23] MEDS: MAGNESIUM OXIDE 400MG TAB (MAG-OX) PO SCH (20:45)
[2023-02-24] VITALS (9 sets, daily range): BP systolic 130–163; BP diastolic 72–99; TEMP 96.3–97.7; O2SAT 90–96
[2023-02-24] MEDS: LEVOTHYROXINE 88MCG TABLET (0.088 MG) PO SCH (05:40)
[2023-02-24] MEDS: AUGMENTIN 875 MG TAB PO SCH ×2 (05:40→18:29)
[2023-02-24] MEDS: SODIUM CHLORIDE 0.9% INJ 10 ML SYR IV SCH ×2 (05:42→18:29)
[2023-02-24 06:09] LABS: BASO % 0.3 % (0.0-1.0); EOS # 0.1 10^3/uL (0.0-0.5); HEMATOCRIT 28.6 % (36.0-47.0); HEMOGLOBIN 9.2 g/dl (12.0-15.5); LYMPH % 16.5 % (24.0-44.0); MEAN CORPUSCULAR HEMOGLOBIN 31.3 pg (27.0-33.0); MEAN CORPUSCULAR HGB CONC 32.2 g/dl (32.0-36.5); MEAN CORPUSCULAR VOLUME 97.3 fl (80.0-96.0); MONO # 1.1 10^3/uL (0.0-0.8); MONO % 8.9 % (2.0-8.0); NEUTROPHILS # 8.7 10^3/uL (1.5-8.5); NEUTROPHILS % 70.7 % (36.0-66.0); PLATELET COUNT, AUTOMATED 204 10^3/uL (150-450); RED BLOOD COUNT 2.94 10^6/uL (4.00-5.40); WHITE BLOOD COUNT 12.4 10^3/uL (4.0-10.0)
[2023-02-24 06:43] LABS: BLOOD UREA NITROGEN 18 MG/DL (9-23); CALCIUM LEVEL 8.1 MG/DL (8.3-10.6); CARBON DIOXIDE LEVEL 21 MMOL/L (20-31); CHLORIDE LEVEL 107 MMOL/L (98-107); CREATININE FOR GFR 0.93 MG/DL (0.55-1.30); GLOMERULAR FILTRATION RATE > 60.0 (>32); GLUCOSE, FASTING 204 MG/DL (74-106); MAGNESIUM LEVEL 1.9 MG/DL (1.8-2.4); POTASSIUM SERUM 3.5 MMOL/L (3.5-5.1); SODIUM LEVEL 140 MMOL/L (136-145)
[2023-02-24] MEDS: INSULIN LISPRO (NovoLOG) PER UNIT SC SCH ×4 (07:30→20:01)
[2023-02-24] MEDS: APIXABAN 2.5 MG TAB (ELIQUIS) PO SCH ×2 (09:59→20:00)
[2023-02-24] MEDS: ASPIRIN 81MG ENTERIC TABLET PO SCH (09:59)
[2023-02-24] MEDS ORDERED: ISOVUE-370 76% 100ML VIAL As Ordered ONE (10:22)
[2023-02-24] MEDS ORDERED: FUROSEMIDE 20MG/2ML VIAL IV ONE (14:15)
[2023-02-24] MEDS: ATORVASTATIN 20 MG TAB PO SCH (14:56)
[2023-02-24] MEDS ORDERED: diltiaZEM 125 MG in NS 100 ML IV SCH (16:00)
[2023-02-24] MEDS: MAGNESIUM OXIDE 400MG TAB (MAG-OX) PO SCH (20:00)
[2023-02-25 04:15] VITALS: BP 132/70; TEMP 97.6; O2SAT 90
[2023-02-25] MEDS: AUGMENTIN 875 MG TAB PO SCH ×2 (05:07→16:40)
[2023-02-25] MEDS: LEVOTHYROXINE 88MCG TABLET (0.088 MG) PO SCH (05:07)
[2023-02-25] MEDS: SODIUM CHLORIDE 0.9% INJ 10 ML SYR IV SCH ×2 (05:08→18:30)
[2023-02-25 05:23] LABS: BASO % 0.2 % (0.0-1.0); EOS # 0.1 10^3/uL (0.0-0.5); EOS % 1.1 % (0.0-3.0); HEMATOCRIT 27.2 % (36.0-47.0); HEMOGLOBIN 8.8 g/dl (12.0-15.5); LYMPH # 2.2 10^3/uL (1.5-5.0); LYMPH % 21.7 % (24.0-44.0); MEAN CORPUSCULAR HEMOGLOBIN 31.5 pg (27.0-33.0); MEAN CORPUSCULAR HGB CONC 32.4 g/dl (32.0-36.5); MEAN CORPUSCULAR VOLUME 97.5 fl (80.0-96.0); MONO % 10.2 % (2.0-8.0); NEUTROPHILS # 6.4 10^3/uL (1.5-8.5); NEUTROPHILS % 63.9 % (36.0-66.0); PLATELET COUNT, AUTOMATED 232 10^3/uL (150-450); RED BLOOD COUNT 2.79 10^6/uL (4.00-5.40)
[2023-02-25 05:52] LABS: C REACTIVE PROTEIN QUANTITATIV 6.2 MG/DL (<1.0)
[2023-02-25 05:53] LABS: CALCIUM LEVEL 7.7 MG/DL (8.3-10.6); CREATININE FOR GFR 0.98 MG/DL (0.55-1.30); GLOMERULAR FILTRATION RATE 57.6 (>32); MAGNESIUM LEVEL 1.6 MG/DL (1.8-2.4); POTASSIUM SERUM 3.5 MMOL/L (3.5-5.1)
[2023-02-25] MEDS: MAG SULF 1GM/100ML (MAG RUN) 1 GM in IV 1 EA IV SCH ×2 (06:37→08:32)
[2023-02-25 07:20] VITALS: BP 136/72; TEMP 97.2; O2SAT 89
[2023-02-25] MEDS: FUROSEMIDE 20MG/2ML VIAL IV SCH ×2 (08:31→16:40)
[2023-02-25] MEDS: APIXABAN 2.5 MG TAB (ELIQUIS) PO SCH ×2 (08:32→21:40)
[2023-02-25] MEDS: ASPIRIN 81MG ENTERIC TABLET PO SCH (08:32)
[2023-02-25] MEDS: INSULIN LISPRO (NovoLOG) PER UNIT SC SCH ×4 (08:32→21:00)
[2023-02-25] MEDS: SODIUM CHLORIDE 0.9% INJ 10 ML SYR IV PRN (10:39)
[2023-02-25 11:31] VITALS: BP 156/78; TEMP 96.9; O2SAT 95
[2023-02-25 15:00] LABS: ALBUMIN 2.5 G/DL (3.2-5.2); BILIRUBIN,DIRECT 0.6 MG/DL (<0.4); BILIRUBIN,TOTAL 1.4 MG/DL (0.3-1.2); TOTAL PROTEIN 5.6 G/DL (5.7-8.2)
[2023-02-25 15:34] VITALS: BP 149/76; TEMP 96.6; O2SAT 93
[2023-02-25] MEDS: ATORVASTATIN 20 MG TAB PO SCH (16:40)
[2023-02-25 18:14] VITALS: BP 140/73
[2023-02-25] MEDS ORDERED: FUROSEMIDE 20MG/2ML VIAL IV ONE (20:30)
[2023-02-25 20:39] VITALS: BP 150/72; TEMP 96.4; O2SAT 93
[2023-02-25] MEDS: MAGNESIUM OXIDE 400MG TAB (MAG-OX) PO SCH (21:40)
[2023-02-26] VITALS (14 sets, daily range): BP systolic 134–160; BP diastolic 70–88; TEMP 96.3–97.9; O2SAT 87–95
[2023-02-26] MEDS: AUGMENTIN 875 MG TAB PO SCH (04:32)
[2023-02-26] MEDS: SODIUM CHLORIDE 0.9% INJ 10 ML SYR IV SCH ×2 (06:04→18:05)
[2023-02-26] MEDS: LEVOTHYROXINE 88MCG TABLET (0.088 MG) PO SCH (06:05)
[2023-02-26 06:38] LABS: BASO % 0.4 % (0.0-1.0); EOS # 0.1 10^3/uL (0.0-0.5); HEMATOCRIT 27.4 % (36.0-47.0); HEMOGLOBIN 9.1 g/dl (12.0-15.5); LYMPH # 2.3 10^3/uL (1.5-5.0); LYMPH % 20.4 % (24.0-44.0); MEAN CORPUSCULAR HEMOGLOBIN 31.7 pg (27.0-33.0); MEAN CORPUSCULAR HGB CONC 33.2 g/dl (32.0-36.5); MEAN CORPUSCULAR VOLUME 95.5 fl (80.0-96.0); MONO # 1.1 10^3/uL (0.0-0.8); MONO % 9.4 % (2.0-8.0); NEUTROPHILS # 7.4 10^3/uL (1.5-8.5); NEUTROPHILS % 65.6 % (36.0-66.0); PLATELET COUNT, AUTOMATED 259 10^3/uL (150-450); RED BLOOD COUNT 2.87 10^6/uL (4.00-5.40); WHITE BLOOD COUNT 11.2 10^3/uL (4.0-10.0)
[2023-02-26 07:06] LABS: C REACTIVE PROTEIN QUANTITATIV 4.1 MG/DL (<1.0); CALCIUM LEVEL 7.6 MG/DL (8.3-10.6); CREATININE FOR GFR 0.97 MG/DL (0.55-1.30); GLOMERULAR FILTRATION RATE 58.2 (>32); MAGNESIUM LEVEL 1.7 MG/DL (1.8-2.4); POTASSIUM SERUM 3.3 MMOL/L (3.5-5.1)
[2023-02-26] MEDS ORDERED: POTASSIUM CHLORIDE 10MEQ SR TABLET PO ONE (08:00)
[2023-02-26] MEDS ORDERED: MAG SULF 1GM/100ML (MAG RUN) 1 GM in IV 1 EA IV ONE (08:00)
[2023-02-26] MEDS: INSULIN LISPRO (NovoLOG) PER UNIT SC SCH ×4 (08:51→21:00)
[2023-02-26] MEDS: APIXABAN 2.5 MG TAB (ELIQUIS) PO SCH ×2 (08:53→21:08)
[2023-02-26] MEDS: ASPIRIN 81MG ENTERIC TABLET PO SCH (08:53)
[2023-02-26] MEDS ORDERED: FUROSEMIDE 40MG/4ML VIAL IV SCH (09:00)
[2023-02-26] MEDS: SODIUM CHLORIDE 0.9% INJ 10 ML SYR IV PRN (10:23)
[2023-02-26] MEDS: ANALGESIC BALM CRM 3OZ TOP PRN (12:45)
[2023-02-26 12:56] LABS: HEMOGLOBIN A1c 6.8 % (4.0-6.0)
[2023-02-26] MEDS: ATORVASTATIN 20 MG TAB PO SCH (15:30)
[2023-02-26 16:07] LABS: CALCIUM LEVEL 8.2 MG/DL (8.3-10.6); CREATININE FOR GFR 1.06 MG/DL (0.55-1.30); GLOMERULAR FILTRATION RATE 52.6 (>32)
[2023-02-26] MEDS: MAGNESIUM OXIDE 400MG TAB (MAG-OX) PO SCH (21:07)
[2023-02-26] MEDS: LEVEMIR (INSULIN DETEMIR) 1 UNITS/0.01ML SC SCH (21:08)
[2023-02-27] VITALS (18 sets, daily range): BP systolic 134–154; BP diastolic 70–96; TEMP 96.1–97.7; O2SAT 89–97
[2023-02-27] MEDS: LEVOTHYROXINE 88MCG TABLET (0.088 MG) PO SCH (05:11)
[2023-02-27] MEDS: SODIUM CHLORIDE 0.9% INJ 10 ML SYR IV SCH ×2 (05:11→17:27)
[2023-02-27 05:42] LABS: BASO % 0.4 % (0.0-1.0); EOS # 0.1 10^3/uL (0.0-0.5); EOS % 0.7 % (0.0-3.0); HEMATOCRIT 28.2 % (36.0-47.0); HEMOGLOBIN 9.2 g/dl (12.0-15.5); LYMPH # 2.6 10^3/uL (1.5-5.0); MEAN CORPUSCULAR HEMOGLOBIN 31.5 pg (27.0-33.0); MEAN CORPUSCULAR HGB CONC 32.6 g/dl (32.0-36.5); MEAN CORPUSCULAR VOLUME 96.6 fl (80.0-96.0); MONO # 0.8 10^3/uL (0.0-0.8); MONO % 7.4 % (2.0-8.0); NEUTROPHILS # 7.5 10^3/uL (1.5-8.5); NEUTROPHILS % 66.1 % (36.0-66.0); PLATELET COUNT, AUTOMATED 258 10^3/uL (150-450); RED BLOOD COUNT 2.92 10^6/uL (4.00-5.40); WHITE BLOOD COUNT 11.3 10^3/uL (4.0-10.0)
[2023-02-27 06:09] LABS: C REACTIVE PROTEIN QUANTITATIV 2.8 MG/DL (<1.0)
[2023-02-27 06:10] LABS: CALCIUM LEVEL 7.8 MG/DL (8.3-10.6); CREATININE FOR GFR 0.99 MG/DL (0.55-1.30); GLOMERULAR FILTRATION RATE 56.9 (>32); MAGNESIUM LEVEL 1.8 MG/DL (1.8-2.4); POTASSIUM SERUM 3.7 MMOL/L (3.5-5.1)
[2023-02-27] MEDS: ASPIRIN 81MG ENTERIC TABLET PO SCH (08:35)
[2023-02-27] MEDS: APIXABAN 2.5 MG TAB (ELIQUIS) PO SCH ×2 (08:35→21:35)
[2023-02-27] MEDS: FUROSEMIDE 40MG/4ML VIAL IV SCH (08:36)
[2023-02-27] MEDS: INSULIN LISPRO (NovoLOG) PER UNIT SC SCH ×4 (08:36→21:00)
[2023-02-27] MEDS: SODIUM CHLORIDE 0.9% INJ 10 ML SYR IV PRN (08:38)
[2023-02-27] MEDS: POTASSIUM CHLORIDE 10MEQ SR TABLET PO SCH (12:50)
[2023-02-27] MEDS: ATORVASTATIN 20 MG TAB PO SCH (15:31)
[2023-02-27] MEDS ORDERED: FUROSEMIDE 20MG/2ML VIAL IV ONE (18:00)
[2023-02-27] MEDS: MAGNESIUM OXIDE 400MG TAB (MAG-OX) PO SCH (21:35)
[2023-02-27] MEDS: LEVEMIR (INSULIN DETEMIR) 1 UNITS/0.01ML SC SCH (21:35)
[2023-02-28] VITALS (7 sets, daily range): BP systolic 109–157; BP diastolic 65–98; TEMP 97.5–97.7; O2SAT 92–94
[2023-02-28] MEDS: LEVOTHYROXINE 88MCG TABLET (0.088 MG) PO SCH (05:43)
[2023-02-28] MEDS: SODIUM CHLORIDE 0.9% INJ 10 ML SYR IV SCH ×2 (05:50→16:34)
[2023-02-28 06:14] LABS: BASO % 0.3 % (0.0-1.0); EOS # 0.1 10^3/uL (0.0-0.5); EOS % 1.3 % (0.0-3.0); HEMATOCRIT 30.8 % (36.0-47.0); HEMOGLOBIN 10.2 g/dl (12.0-15.5); LYMPH # 2.1 10^3/uL (1.5-5.0); LYMPH % 23.8 % (24.0-44.0); MEAN CORPUSCULAR HEMOGLOBIN 31.7 pg (27.0-33.0); MEAN CORPUSCULAR HGB CONC 33.1 g/dl (32.0-36.5); MEAN CORPUSCULAR VOLUME 95.7 fl (80.0-96.0); MONO # 0.7 10^3/uL (0.0-0.8); MONO % 8.2 % (2.0-8.0); NEUTROPHILS # 5.8 10^3/uL (1.5-8.5); NEUTROPHILS % 64.2 % (36.0-66.0); PLATELET COUNT, AUTOMATED 272 10^3/uL (150-450); RED BLOOD COUNT 3.22 10^6/uL (4.00-5.40)
[2023-02-28 06:52] LABS: C REACTIVE PROTEIN QUANTITATIV 2.1 MG/DL (<1.0)
[2023-02-28 06:54] LABS: CALCIUM LEVEL 7.9 MG/DL (8.3-10.6); CREATININE FOR GFR 1.09 MG/DL (0.55-1.30); GLOMERULAR FILTRATION RATE 50.9 (>32); MAGNESIUM LEVEL 1.7 MG/DL (1.8-2.4); POTASSIUM SERUM 4.3 MMOL/L (3.5-5.1)
[2023-02-28] MEDS: INSULIN LISPRO (NovoLOG) PER UNIT SC SCH ×4 (08:14→20:25)
[2023-02-28] MEDS: POTASSIUM CHLORIDE 10MEQ SR TABLET PO SCH (08:15)
[2023-02-28] MEDS: FUROSEMIDE 40MG/4ML VIAL IV SCH (08:15)
[2023-02-28] MEDS: ASPIRIN 81MG ENTERIC TABLET PO SCH (08:15)
[2023-02-28] MEDS: APIXABAN 2.5 MG TAB (ELIQUIS) PO SCH ×2 (08:15→20:35)
[2023-02-28] MEDS: ATORVASTATIN 20 MG TAB PO SCH (16:32)
[2023-02-28] MEDS ORDERED: FUROSEMIDE 40MG/4ML VIAL IV ONE (17:00)
[2023-02-28] MEDS: MAGNESIUM OXIDE 400MG TAB (MAG-OX) PO SCH (20:35)
[2023-02-28] MEDS: LEVEMIR (INSULIN DETEMIR) 1 UNITS/0.01ML SC SCH (20:35)
[2023-02-28] MEDS: [UNRECOGNIZED DRUG - OTHER] TOP SCH (20:36)
[2023-03-01] MEDS: SODIUM CHLORIDE 0.9% INJ 10 ML SYR IV SCH ×2 (05:14→17:25)
[2023-03-01] MEDS: LEVOTHYROXINE 88MCG TABLET (0.088 MG) PO SCH (05:54)
[2023-03-01 06:00] VITALS: BP 141/97; TEMP 97.5; O2SAT 95
[2023-03-01 06:39] LABS: BASO % 0.4 % (0.0-1.0); EOS # 0.1 10^3/uL (0.0-0.5); EOS % 1.4 % (0.0-3.0); HEMATOCRIT 30.7 % (36.0-47.0); HEMOGLOBIN 10.1 g/dl (12.0-15.5); LYMPH # 2.2 10^3/uL (1.5-5.0); LYMPH % 21.2 % (24.0-44.0); MEAN CORPUSCULAR HEMOGLOBIN 31.7 pg (27.0-33.0); MEAN CORPUSCULAR HGB CONC 32.9 g/dl (32.0-36.5); MEAN CORPUSCULAR VOLUME 96.2 fl (80.0-96.0); MONO # 0.7 10^3/uL (0.0-0.8); NEUTROPHILS # 7.1 10^3/uL (1.5-8.5); NEUTROPHILS % 68.7 % (36.0-66.0); PLATELET COUNT, AUTOMATED 295 10^3/uL (150-450); RED BLOOD COUNT 3.19 10^6/uL (4.00-5.40); WHITE BLOOD COUNT 10.3 10^3/uL (4.0-10.0)
[2023-03-01 07:02] LABS: C REACTIVE PROTEIN QUANTITATIV 1.7 MG/DL (<1.0)
[2023-03-01 07:03] LABS: CALCIUM LEVEL 8.8 MG/DL (8.3-10.6); CREATININE FOR GFR 1.09 MG/DL (0.55-1.30); GLOMERULAR FILTRATION RATE 50.9 (>32); MAGNESIUM LEVEL 1.7 MG/DL (1.8-2.4)
[2023-03-01] MEDS ORDERED: MAG SULF 1GM/100ML (MAG RUN) 1 GM in IV 1 EA IV ONE (08:00)
[2023-03-01] MEDS: FUROSEMIDE 40MG/4ML VIAL IV SCH (08:07)
[2023-03-01] MEDS: ASPIRIN 81MG ENTERIC TABLET PO SCH (08:07)
[2023-03-01] MEDS: INSULIN LISPRO (NovoLOG) PER UNIT SC SCH ×4 (08:07→20:18)
[2023-03-01] MEDS: [UNRECOGNIZED DRUG - OTHER] TOP SCH ×3 (08:08→20:33)
[2023-03-01] MEDS: APIXABAN 2.5 MG TAB (ELIQUIS) PO SCH ×2 (08:08→20:32)
[2023-03-01] MEDS ORDERED: VARIBAR PUDDING 40% w/v 230ML TUBE As Ordered ONE (09:08)
[2023-03-01] MEDS ORDERED: E-Z-PAQUE 96% w/w SUSP 176GM BTL As Ordered ONE (09:09)
[2023-03-01] MEDS ORDERED: VARIBAR NECTAR 40% w/v 240ML SUSP BTL As Ordered ONE (09:09)
[2023-03-01] MEDS ORDERED: BARIUM SULFATE 700 MG TABLET (E-Z-DISK) As Ordered ONE (09:09)
[2023-03-01] MEDS: SODIUM CHLORIDE 0.9% INJ 10 ML SYR IV PRN (09:50)
[2023-03-01 14:00] VITALS: BP 110/69; TEMP 97.3; O2SAT 97
[2023-03-01] MEDS: ATORVASTATIN 20 MG TAB PO SCH (14:59)
[2023-03-01 20:00] VITALS: BP 141/61; TEMP 97.3; O2SAT 99
[2023-03-01] MEDS: METOPROLOL SUCC *XL* 25MG TAB (TopROL *XL*) PO SCH (20:32)
[2023-03-01] MEDS: LEVEMIR (INSULIN DETEMIR) 1 UNITS/0.01ML SC SCH (20:32)
[2023-03-01] MEDS: MAGNESIUM OXIDE 400MG TAB (MAG-OX) PO SCH (20:32)
[2023-03-01 22:00] VITALS: O2SAT 92
[2023-03-02] MEDS: SODIUM CHLORIDE 0.9% INJ 10 ML SYR IV SCH ×2 (04:55→17:09)
[2023-03-02 05:06] VITALS: BP 128/92; TEMP 97.7; O2SAT 95
[2023-03-02 05:31] LABS: BASO % 0.4 % (0.0-1.0); EOS # 0.2 10^3/uL (0.0-0.5); EOS % 1.6 % (0.0-3.0); HEMATOCRIT 30.8 % (36.0-47.0); HEMOGLOBIN 10.2 g/dl (12.0-15.5); LYMPH # 2.2 10^3/uL (1.5-5.0); LYMPH % 20.9 % (24.0-44.0); MEAN CORPUSCULAR HEMOGLOBIN 31.7 pg (27.0-33.0); MEAN CORPUSCULAR HGB CONC 33.1 g/dl (32.0-36.5); MEAN CORPUSCULAR VOLUME 95.7 fl (80.0-96.0); MONO # 0.8 10^3/uL (0.0-0.8); NEUTROPHILS # 7.2 10^3/uL (1.5-8.5); NEUTROPHILS % 68.2 % (36.0-66.0); PLATELET COUNT, AUTOMATED 290 10^3/uL (150-450); RED BLOOD COUNT 3.22 10^6/uL (4.00-5.40); WHITE BLOOD COUNT 10.5 10^3/uL (4.0-10.0)
[2023-03-02] MEDS: LEVOTHYROXINE 88MCG TABLET (0.088 MG) PO SCH (05:31)
[2023-03-02 05:49] LABS: C REACTIVE PROTEIN QUANTITATIV 1.4 MG/DL (<1.0)
[2023-03-02 05:50] LABS: CALCIUM LEVEL 8.5 MG/DL (8.3-10.6); CREATININE FOR GFR 1.24 MG/DL (0.55-1.30); GLOMERULAR FILTRATION RATE 43.9 (>32)
[2023-03-02] MEDS: INSULIN LISPRO (NovoLOG) PER UNIT SC SCH ×4 (08:56→21:00)
[2023-03-02] MEDS: APIXABAN 2.5 MG TAB (ELIQUIS) PO SCH ×2 (08:56→21:08)
[2023-03-02] MEDS: ASPIRIN 81MG ENTERIC TABLET PO SCH (08:56)
[2023-03-02] MEDS: [UNRECOGNIZED DRUG - OTHER] TOP SCH ×3 (08:57→21:12)
[2023-03-02 14:00] VITALS: BP 117/67; TEMP 97.3; O2SAT 93
[2023-03-02 15:51] VITALS: O2SAT 96
[2023-03-02] MEDS: ATORVASTATIN 20 MG TAB PO SCH (17:07)
[2023-03-02 20:00] VITALS: BP 129/88; TEMP 97.3; O2SAT 96
[2023-03-02] MEDS: MAGNESIUM OXIDE 400MG TAB (MAG-OX) PO SCH (21:07)
[2023-03-02] MEDS: ACETAMINOPHEN TAB 650MG DOSE (2X325MG) PO PRN (21:08)
[2023-03-02] MEDS: LEVEMIR (INSULIN DETEMIR) 1 UNITS/0.01ML SC SCH (21:11)
[2023-03-02] MEDS: METOPROLOL SUCC *XL* 25MG TAB (TopROL *XL*) PO SCH (21:11)
[2023-03-03] MEDS: LEVOTHYROXINE 88MCG TABLET (0.088 MG) PO SCH (05:15)
[2023-03-03] MEDS: SODIUM CHLORIDE 0.9% INJ 10 ML SYR IV SCH ×2 (05:15→17:13)
[2023-03-03 05:48] LABS: BASO % 0.4 % (0.0-1.0); EOS # 0.2 10^3/uL (0.0-0.5); EOS % 2.1 % (0.0-3.0); HEMATOCRIT 31.6 % (36.0-47.0); HEMOGLOBIN 10.2 g/dl (12.0-15.5); LYMPH % 20.8 % (24.0-44.0); MEAN CORPUSCULAR HEMOGLOBIN 31.1 pg (27.0-33.0); MEAN CORPUSCULAR HGB CONC 32.3 g/dl (32.0-36.5); MEAN CORPUSCULAR VOLUME 96.3 fl (80.0-96.0); MONO # 0.7 10^3/uL (0.0-0.8); MONO % 7.8 % (2.0-8.0); NEUTROPHILS # 6.4 10^3/uL (1.5-8.5); NEUTROPHILS % 68.3 % (36.0-66.0); PLATELET COUNT, AUTOMATED 276 10^3/uL (150-450); RED BLOOD COUNT 3.28 10^6/uL (4.00-5.40); WHITE BLOOD COUNT 9.4 10^3/uL (4.0-10.0)
[2023-03-03 06:00] VITALS: BP 150/97; TEMP 97.9; O2SAT 93
[2023-03-03 06:07] LABS: C REACTIVE PROTEIN QUANTITATIV 1.2 MG/DL (<1.0)
[2023-03-03 06:08] LABS: CALCIUM LEVEL 8.2 MG/DL (8.3-10.6); CREATININE FOR GFR 1.18 MG/DL (0.55-1.30); GLOMERULAR FILTRATION RATE 46.5 (>32)
[2023-03-03] MEDS: INSULIN LISPRO (NovoLOG) PER UNIT SC SCH ×4 (07:57→20:46)
[2023-03-03] MEDS: ASPIRIN 81MG ENTERIC TABLET PO SCH (08:00)
[2023-03-03] MEDS: APIXABAN 2.5 MG TAB (ELIQUIS) PO SCH ×2 (08:00→20:45)
[2023-03-03] MEDS: [UNRECOGNIZED DRUG - OTHER] TOP SCH ×3 (08:01→20:45)
[2023-03-03 14:00] VITALS: BP 118/75; TEMP 97.5; O2SAT 95
[2023-03-03] MEDS: ATORVASTATIN 20 MG TAB PO SCH (15:00)
[2023-03-03 19:53] VITALS: BP 138/90; TEMP 97.9; O2SAT 94
[2023-03-03] MEDS: METOPROLOL SUCC *XL* 25MG TAB (TopROL *XL*) PO SCH (20:45)
[2023-03-03] MEDS: MAGNESIUM OXIDE 400MG TAB (MAG-OX) PO SCH (20:45)
[2023-03-03] MEDS: LEVEMIR (INSULIN DETEMIR) 1 UNITS/0.01ML SC SCH (20:46)
[2023-03-03] MEDS: ACETAMINOPHEN TAB 650MG DOSE (2X325MG) PO PRN (23:49)
[2023-03-04 00:01] VITALS: O2SAT 92
[2023-03-04] MEDS: LEVOTHYROXINE 88MCG TABLET (0.088 MG) PO SCH (05:52)
[2023-03-04 06:04] VITALS: BP 127/90; TEMP 97.3; O2SAT 96
[2023-03-04] MEDS: SODIUM CHLORIDE 0.9% INJ 10 ML SYR IV SCH ×2 (06:27→18:36)
[2023-03-04] MEDS: SODIUM CHLORIDE 0.9% INJ 10 ML SYR IV PRN (06:28)
[2023-03-04] MEDS: INSULIN LISPRO (NovoLOG) PER UNIT SC SCH ×4 (09:51→20:38)
[2023-03-04] MEDS: ASPIRIN 81MG ENTERIC TABLET PO SCH (09:51)
[2023-03-04] MEDS: [UNRECOGNIZED DRUG - OTHER] TOP SCH ×3 (09:51→20:49)
[2023-03-04] MEDS: APIXABAN 2.5 MG TAB (ELIQUIS) PO SCH ×2 (09:55→20:48)
[2023-03-04] MEDS: FUROSEMIDE 20 MG TAB PO SCH (13:31)
[2023-03-04 14:00] VITALS: BP 141/84; TEMP 97.9; O2SAT 94
[2023-03-04] MEDS: ATORVASTATIN 20 MG TAB PO SCH (15:44)
[2023-03-04] MEDS: MAGNESIUM OXIDE 400MG TAB (MAG-OX) PO SCH (20:48)
[2023-03-04] MEDS: LEVEMIR (INSULIN DETEMIR) 1 UNITS/0.01ML SC SCH (20:49)
[2023-03-04] MEDS: METOPROLOL SUCC *XL* 25MG TAB (TopROL *XL*) PO SCH (20:57)
[2023-03-05 05:10] VITALS: BP 129/67; TEMP 97.5; O2SAT 98
[2023-03-05] MEDS: SODIUM CHLORIDE 0.9% INJ 10 ML SYR IV SCH ×2 (05:18→18:09)
[2023-03-05] MEDS: LEVOTHYROXINE 88MCG TABLET (0.088 MG) PO SCH (05:18)
[2023-03-05] MEDS: INSULIN LISPRO (NovoLOG) PER UNIT SC SCH ×4 (10:11→21:00)
[2023-03-05] MEDS: ASPIRIN 81MG ENTERIC TABLET PO SCH (10:12)
[2023-03-05] MEDS: [UNRECOGNIZED DRUG - OTHER] TOP SCH ×3 (10:12→21:19)
[2023-03-05] MEDS: FUROSEMIDE 20 MG TAB PO SCH (10:12)
[2023-03-05] MEDS: APIXABAN 2.5 MG TAB (ELIQUIS) PO SCH ×2 (10:12→21:19)
[2023-03-05 14:00] VITALS: BP 120/68; TEMP 97.7; O2SAT 99
[2023-03-05] MEDS: ATORVASTATIN 20 MG TAB PO SCH (16:18)
[2023-03-05] MEDS: MAGNESIUM OXIDE 400MG TAB (MAG-OX) PO SCH (21:19)
[2023-03-05] MEDS: METOPROLOL SUCC *XL* 25MG TAB (TopROL *XL*) PO SCH (21:19)
[2023-03-05] MEDS: LEVEMIR (INSULIN DETEMIR) 1 UNITS/0.01ML SC SCH (21:19)
[2023-03-06] MEDS: SODIUM CHLORIDE 0.9% INJ 10 ML SYR IV SCH ×2 (05:34→18:05)
[2023-03-06] MEDS: LEVOTHYROXINE 88MCG TABLET (0.088 MG) PO SCH (05:34)
[2023-03-06 06:30] VITALS: BP 136/69; TEMP 97.3; O2SAT 98
[2023-03-06] MEDS: ASPIRIN 81MG ENTERIC TABLET PO SCH (09:00)
[2023-03-06] MEDS: FUROSEMIDE 20 MG TAB PO SCH (09:00)
[2023-03-06] MEDS: [UNRECOGNIZED DRUG - OTHER] TOP SCH ×3 (09:00→20:46)
[2023-03-06] MEDS: APIXABAN 2.5 MG TAB (ELIQUIS) PO SCH ×2 (09:00→20:48)
[2023-03-06] MEDS: INSULIN LISPRO (NovoLOG) PER UNIT SC SCH ×4 (09:01→21:49)
[2023-03-06] MEDS: ATORVASTATIN 20 MG TAB PO SCH (15:59)
[2023-03-06] MEDS: MAGNESIUM OXIDE 400MG TAB (MAG-OX) PO SCH (20:47)
[2023-03-06] MEDS: METOPROLOL SUCC *XL* 25MG TAB (TopROL *XL*) PO SCH (20:48)
[2023-03-06] MEDS: LEVEMIR (INSULIN DETEMIR) 1 UNITS/0.01ML SC SCH (20:48)
[2023-03-07] MEDS: SODIUM CHLORIDE 0.9% INJ 10 ML SYR IV SCH ×2 (05:23→18:01)
[2023-03-07] MEDS: LEVOTHYROXINE 88MCG TABLET (0.088 MG) PO SCH (05:24)
[2023-03-07 06:00] VITALS: BP 143/64; TEMP 97.5; O2SAT 98
[2023-03-07] MEDS: [UNRECOGNIZED DRUG - OTHER] TOP SCH ×3 (08:41→20:18)
[2023-03-07] MEDS: FUROSEMIDE 20 MG TAB PO SCH (08:42)
[2023-03-07] MEDS: APIXABAN 2.5 MG TAB (ELIQUIS) PO SCH ×2 (08:42→20:17)
[2023-03-07] MEDS: ASPIRIN 81MG ENTERIC TABLET PO SCH (08:42)
[2023-03-07] MEDS: INSULIN LISPRO (NovoLOG) PER UNIT SC SCH ×4 (08:42→20:12)
[2023-03-07] MEDS: ATORVASTATIN 20 MG TAB PO SCH (16:07)
[2023-03-07] MEDS: MAGNESIUM OXIDE 400MG TAB (MAG-OX) PO SCH (20:16)
[2023-03-07] MEDS: METOPROLOL SUCC *XL* 25MG TAB (TopROL *XL*) PO SCH (20:17)
[2023-03-07] MEDS: LEVEMIR (INSULIN DETEMIR) 1 UNITS/0.01ML SC SCH (20:17)
[2023-03-08] MEDS: LEVOTHYROXINE 88MCG TABLET (0.088 MG) PO SCH (05:12)
[2023-03-08] MEDS: SODIUM CHLORIDE 0.9% INJ 10 ML SYR IV SCH (05:12)
[2023-03-08 06:00] VITALS: BP 139/64; TEMP 97.7; O2SAT 96
[2023-03-08] MEDS: ASPIRIN 81MG ENTERIC TABLET PO SCH (09:11)
[2023-03-08] MEDS: INSULIN LISPRO (NovoLOG) PER UNIT SC SCH (09:11)
[2023-03-08 09:12] VITALS: BP 114/82
[2023-03-08] MEDS ORDERED: TOPR25TA PO (09:12)
[2023-03-08] MEDS: APIXABAN 2.5 MG TAB (ELIQUIS) PO SCH (09:12)
[2023-03-08] MEDS ORDERED: FURO20TA2 PO (09:12)
[2023-03-08] MEDS ORDERED: DILT240C41 PO (09:12)
[2023-03-08] MEDS: FUROSEMIDE 20 MG TAB PO SCH (09:12)
[2023-03-08] MEDS ORDERED: K-TA10TA PO (09:12)
[2023-03-08] MEDS: [UNRECOGNIZED DRUG - OTHER] TOP SCH (09:13)
== END 2023-03-08 10:25 | disposition home or self-care (01) | DRG 871 ==
LOC: M ED 21:50 → EDBD 21:50 → M ED INP 02-19 01:57 → ENRESERV 02-19 02:18 → M MSPAV 02-19 04:16 → M PCU 02-19 10:37 → M ICU 02-19 15:40 → M PCU 02-24 00:30 → M MSPAV 02-27 18:29
PROVIDERS: ADMIT Family Medicine; ATTEND Internal Medicine
PROC: 02HV33Z Insertion of Infusion Device into Superior Vena Cava, Percutaneous Approach (ICD-10-PCS; principal; 2023-02-23 15:00)
DX: A41.51 Sepsis due to Escherichia coli [E. coli] (principal); R65.21 Severe sepsis with septic shock; G93.41 Metabolic encephalopathy; J81.0 Acute pulmonary edema; I50.33 Acute on chronic diastolic (congestive) heart failure; N17.9 Acute kidney failure, unspecified; E87.20 Acidosis, unspecified; N13.6 Pyonephrosis; I69.351 Hemiplegia and hemiparesis following cerebral infarction affecting right dominant side; N10 Acute pyelonephritis; I11.0 Hypertensive heart disease with heart failure; I71.20 Thoracic aortic aneurysm, without rupture, unspecified; E03.9 Hypothyroidism, unspecified; D64.9 Anemia, unspecified; I48.91 Unspecified atrial fibrillation; I25.10 Atherosclerotic heart disease of native coronary artery without angina pectoris; E78.5 Hyperlipidemia, unspecified; R74.01 Elevation of levels of liver transaminase levels; R33.9 Retention of urine, unspecified; Z79.82 Long term (current) use of aspirin; R91.1 Solitary pulmonary nodule; Z79.01 Long term (current) use of anticoagulants; E11.65 Type 2 diabetes mellitus with hyperglycemia; E87.6 Hypokalemia; Z95.5 Presence of coronary angioplasty implant and graft; E83.42 Hypomagnesemia; Z74.01 Bed confinement status; R13.12 Dysphagia, oropharyngeal phase; Z79.899 Other long term (current) drug therapy

== ENCOUNTER → 2023-02-18 | Outpatient (REF) | payer MEDICARE, OTHER ==
[~2023-02-18] MED LIST changes: +CENT1TAB PO; +LEVO88TA3 PO; +MELA3TAB30 PO
== END ==
LOC: M LAB REF 16:15
PROVIDERS: ATTEND Physician Assistant
DX: B34.9 Viral infection, unspecified (principal)

== ENCOUNTER 2023-03-14 19:31 | Emergency (ER) | payer MEDICARE, OTHER ==
[~2023-03-14] VITALS: Ht 149.9 cm; Wt 105.0 kg
[~2023-03-14 19:31] MED LIST changes: +CENT1TAB PO; +DILT240C41 PO; +LEVO88TA3 PO; +MELA3TAB30 PO; +POTA-164 PO; +TOPR25TA PO
[2023-03-15 04:12] LABS: BASO # 0.1 10^3/uL (0.0-0.2); BASO % 0.5 % (0.0-1.0); EOS # 0.1 10^3/uL (0.0-0.5); EOS % 1.3 % (0.0-3.0); HEMOGLOBIN 11.1 g/dl (12.0-15.5); LYMPH # 3.8 10^3/uL (1.5-5.0); LYMPH % 36.7 % (24.0-44.0); MEAN CORPUSCULAR HEMOGLOBIN 30.5 pg (27.0-33.0); MEAN CORPUSCULAR HGB CONC 30.8 g/dl (32.0-36.5); MEAN CORPUSCULAR VOLUME 98.9 fl (80.0-96.0); MONO # 1.1 10^3/uL (0.0-0.8); MONO % 10.2 % (2.0-8.0); NEUTROPHILS # 5.3 10^3/uL (1.5-8.5); NEUTROPHILS % 50.7 % (36.0-66.0); PLATELET COUNT, AUTOMATED 232 10^3/uL (150-450); RED BLOOD COUNT 3.64 10^6/uL (4.00-5.40); WHITE BLOOD COUNT 10.4 10^3/uL (4.0-10.0)
[2023-03-15 05:27] LABS: CALCIUM LEVEL 10.4 MG/DL (8.3-10.6); CREATININE FOR GFR 1.61 MG/DL (0.55-1.30); GLOMERULAR FILTRATION RATE 32.5 (>32); POTASSIUM SERUM 4.9 MMOL/L (3.5-5.1)
[2023-03-15] MEDS ORDERED: CEFP200T PO (05:55)
[2023-03-15] MEDS ORDERED: CEFDINIR 300 MG CAP (OMNICEF) PO ONE (06:00)
[2023-03-15 06:19] VITALS: BP 147/73; TEMP 97.2; O2SAT 98
== END 2023-03-15 06:31 | disposition home or self-care (01) ==
LOC: M ED 19:31
DX: N39.0 Urinary tract infection, site not specified (principal); R31.9 Hematuria, unspecified; E11.9 Type 2 diabetes mellitus without complications; I10 Essential (primary) hypertension; E78.5 Hyperlipidemia, unspecified; Z79.899 Other long term (current) drug therapy; Z79.01 Long term (current) use of anticoagulants; Z79.82 Long term (current) use of aspirin

== ENCOUNTER → 2023-03-25 | Outpatient (CLI) | payer MEDICARE, OTHER ==
[~2023-03-25] MED LIST changes: +CEFP200T PO
== END ==
LOC: M PLAIMG 10:52
PROVIDERS: ATTEND Specialist
DX: N13.30 Unspecified hydronephrosis (principal)

== ENCOUNTER 2023-03-31 14:09 | Emergency (ER) | payer MEDICARE, OTHER ==
[~2023-03-31] VITALS: Ht 167.6 cm; Wt 42.0 kg
[2023-03-31 15:01] LABS: BASO % 0.3 % (0.0-1.0); EOS # 0.2 10^3/uL (0.0-0.5); EOS % 2.3 % (0.0-3.0); HEMATOCRIT 32.5 % (36.0-47.0); HEMOGLOBIN 10.1 g/dl (12.0-15.5); LYMPH # 2.8 10^3/uL (1.5-5.0); LYMPH % 26.5 % (24.0-44.0); MEAN CORPUSCULAR HEMOGLOBIN 30.2 pg (27.0-33.0); MEAN CORPUSCULAR HGB CONC 31.1 g/dl (32.0-36.5); MEAN CORPUSCULAR VOLUME 97.3 fl (80.0-96.0); MONO % 9.7 % (2.0-8.0); NEUTROPHILS # 6.4 10^3/uL (1.5-8.5); NEUTROPHILS % 60.8 % (36.0-66.0); PLATELET COUNT, AUTOMATED 281 10^3/uL (150-450); RED BLOOD COUNT 3.34 10^6/uL (4.00-5.40); WHITE BLOOD COUNT 10.5 10^3/uL (4.0-10.0)
[2023-03-31] MEDS ORDERED: DIGOXIN INJ 0.5 MG/2 ML AMP IV ONE ×2 (15:40→16:55)
[2023-03-31 16:00] LABS: BLOOD UREA NITROGEN 23 MG/DL (9-23); CARBON DIOXIDE LEVEL 14 MMOL/L (20-31); CHLORIDE LEVEL 125 MMOL/L (98-107); CREATININE FOR GFR 0.51 MG/DL (0.55-1.30); GLOMERULAR FILTRATION RATE > 60.0 (>32); GLUCOSE, FASTING 102 MG/DL (74-106); POTASSIUM SERUM 2.6 MMOL/L (3.5-5.1); SODIUM LEVEL 148 MMOL/L (136-145)
[2023-03-31 16:31] LABS: IONIZED CALCIUM 4.8 MG/DL (4.5-5.3)
[2023-03-31 16:57] LABS: BLOOD UREA NITROGEN 36 MG/DL (9-23); CALCIUM LEVEL 8.6 MG/DL (8.3-10.6); CARBON DIOXIDE LEVEL 22 MMOL/L (20-31); CHLORIDE LEVEL 110 MMOL/L (98-107); GLOMERULAR FILTRATION RATE > 60.0 (>32); GLUCOSE, FASTING 152 MG/DL (74-106); POTASSIUM SERUM 4.7 MMOL/L (3.5-5.1); SODIUM LEVEL 140 MMOL/L (136-145)
[2023-03-31] MEDS ORDERED: AMIODARONE HCL 150 MG in IV 1 EA IV STA (18:59)
[2023-03-31] MEDS ORDERED: AMIODARONE HCL 150 MG in IV 1 EA IV ONE (23:50)
[2023-03-31] MEDS ORDERED: AMIODARONE HCL 360 MG in IV 1 EA IV SCH ×4 (23:50)
[2023-04-01] MEDS ORDERED: GLUCAGON INJ 1MG VIAL SC PRN (01:10)
[2023-04-01] MEDS ORDERED: DEXTROSE 50% 50ML SYRINGE IV PRN (01:10)
[2023-04-01] MEDS ORDERED: GLUCOSE 4GM CHEW TABLET PO PRN (01:10)
[2023-04-01] MEDS ORDERED: MED REC IN PROGRESS XX SCH (01:40)
[2023-04-01] MEDS ORDERED: AMMO12LO TOP (05:54)
[2023-04-01] MEDS ORDERED: DILT240C47 PO (05:54)
[2023-04-01] MEDS ORDERED: THICPOW5 PO (05:54)
[2023-04-01] MEDS ORDERED: METH-855 PO (05:54)
[2023-04-01] MEDS ORDERED: METO1TAB32 PO (05:55)
[2023-04-01] MEDS ORDERED: HOME MED LIST COMPLETE! XX SCH (05:55)
[2023-04-01] MEDS ORDERED: LEVOTHYROXINE 88MCG TABLET (0.088 MG) PO SCH (06:00)
[2023-04-01] MEDS: INSULIN LISPRO (NovoLOG) PER UNIT SC SCH ×2 (06:33)
[2023-04-01 09:00] VITALS: BP 125/71; TEMP 97.5; O2SAT 98
[2023-04-01] MEDS ORDERED: SPIRONOLACTONE 12.5MG PER 1/2 TABLET PO SCH (09:00)
[2023-04-01] MEDS ORDERED: ATORVASTATIN 20 MG TAB PO SCH (09:00)
== END 2023-04-01 09:05 | disposition short-term general hospital (02) ==
LOC: M ED 14:09
DX: I48.91 Unspecified atrial fibrillation (principal); I24.9 Acute ischemic heart disease, unspecified; E11.9 Type 2 diabetes mellitus without complications; J44.9 Chronic obstructive pulmonary disease, unspecified; I69.30 Unspecified sequelae of cerebral infarction; Z95.5 Presence of coronary angioplasty implant and graft; I25.10 Atherosclerotic heart disease of native coronary artery without angina pectoris; I10 Essential (primary) hypertension; E78.5 Hyperlipidemia, unspecified; E03.9 Hypothyroidism, unspecified; Z79.01 Long term (current) use of anticoagulants; Z79.84 Long term (current) use of oral hypoglycemic drugs; R31.9 Hematuria, unspecified; Z82.3 Family history of stroke; Z79.82 Long term (current) use of aspirin; Z79.899 Other long term (current) drug therapy
CPT/HCPCS: 36415; 70450; 71045; 80048; 82330; 83605; 84484; 85025; 86850; 86900; 86901; 87040; 87088; 87186; 87635; 93005; 93041; 94760; 96374; 96375; 96376; 99285; J0283; J1160; J1815

== ENCOUNTER 2023-04-11 11:58 | Inpatient (IN) | payer MEDICARE, OTHER ==
[~2023-04-11] VITALS: Ht 162.6 cm; Wt 39.5 kg
[~2023-04-11 11:58] MED LIST changes: +AMMO12LO TOP; +DILT240C47 PO; -GABA-283 PO; +GABA-284 PO; +METH-855 PO; +THICPOW5 PO
[2023-04-11] MEDS: NS 1,000 ML IV SCH (12:10)
[2023-04-11 12:39] LABS: BASO % 0.2 % (0.0-1.0); EOS # 0.1 10^3/uL (0.0-0.5); EOS % 1.1 % (0.0-3.0); HEMATOCRIT 30.4 % (36.0-47.0); HEMOGLOBIN 9.9 g/dl (12.0-15.5); LYMPH # 2.1 10^3/uL (1.5-5.0); LYMPH % 16.4 % (24.0-44.0); MEAN CORPUSCULAR HEMOGLOBIN 30.5 pg (27.0-33.0); MEAN CORPUSCULAR HGB CONC 32.6 g/dl (32.0-36.5); MEAN CORPUSCULAR VOLUME 93.5 fl (80.0-96.0); MONO # 1.1 10^3/uL (0.0-0.8); MONO % 8.5 % (2.0-8.0); NEUTROPHILS # 9.2 10^3/uL (1.5-8.5); PLATELET COUNT, AUTOMATED 252 10^3/uL (150-450); RED BLOOD COUNT 3.25 10^6/uL (4.00-5.40); WHITE BLOOD COUNT 12.6 10^3/uL (4.0-10.0)
[2023-04-11] MEDS ORDERED: OMEP-173 PO (12:42)
[2023-04-11 13:04] LABS: INR 1.41; PROTHROMBIN TIME 17.5 SECONDS (12.5-14.5)
[2023-04-11 13:05] LABS: APPEARANCE, URINE MANUAL CLOUDY (CLEAR); COLOR, URINE MANUAL RED (YELLOW)
[2023-04-11 13:06] LABS: BILIRUBIN, URINE MANUAL NEGATIVE (NEGATIVE); GLUCOSE, URINE (UA) MANUAL NEGATIVE (NEGATIVE); KETONE, URINE MANUAL NEGATIVE (NEGATIVE); PROTEIN, URINE MANUAL 3+ mg/dL (NEGATIVE); UROBILINOGEN, URINE MANUAL 0.2 mg/dl (NORMAL)
[2023-04-11 13:07] LABS: LEUKOCYTE ESTERASE, URINE MAN 2+ (NEGATIVE); NITRITE, URINE MANUAL NEGATIVE (NEGATIVE)
[2023-04-11 13:08] LABS: ALBUMIN 2.7 G/DL (3.2-5.2); BILIRUBIN,DIRECT 0.3 MG/DL (<0.4); BILIRUBIN,TOTAL 0.7 MG/DL (0.3-1.2); BLOOD URINE MANUAL 3+ (NEGATIVE); CALCIUM LEVEL 9.2 MG/DL (8.3-10.6); CREATININE FOR GFR 1.39 MG/DL (0.55-1.30); GLOMERULAR FILTRATION RATE 38.5 (>32); POTASSIUM SERUM 5.1 MMOL/L (3.5-5.1); TOTAL PROTEIN 6.1 G/DL (5.7-8.2)
[2023-04-11 13:19] LABS: BACTERIA, URINE SMALL AMOUNT; HYALINE CAST, URINE NONE SEEN /lpf (0-1); RBC, URINE TNTC /hpf (0-3); SQUAMOUS EPITHELIAL CELL URINE SMALL AMOUNT /hpf (SMALL AMT); WBC, URINE TNTC /hpf (0-3)
[2023-04-11 13:20] LABS: AMORPHOUS SEDIMENT, URINE SMALL AMOUNT (NEGATIVE); RSV AMPLIFICATION NEGATIVE (NEGATIVE)
[2023-04-11] MEDS ORDERED: NS 500 ML IV ONE ×2 (13:20→14:25)
[2023-04-11] MEDS ORDERED: CIPROFLOXACIN 400 MG in IV 1 EA IV ONE (13:25)
[2023-04-11] MEDS ORDERED: MED REC IN PROGRESS XX SCH (14:25)
[2023-04-11] MEDS ORDERED: CIPR500T39 PO (14:34)
[2023-04-11] MEDS ORDERED: LISI2.5T9 PO (14:34)
[2023-04-11] MEDS ORDERED: HOME MED LIST COMPLETE! XX SCH (14:45)
[2023-04-11] MEDS ORDERED: PIPERACILLIN/TAZOBACTAM SOD 3.375 GM in D5W MINI-BAG PLUS 50 ML IV ONE (15:50)
[2023-04-11] MEDS ORDERED: NS 1,000 ML IV ONE ×3 (17:20→17:40)
[2023-04-11] MEDS ORDERED: PIPERACILLIN/TAZOBACTAM SOD 4.5 GM in D5W MINI-BAG PLUS 50 ML IV ONE (17:40)
[2023-04-11] MEDS ORDERED: MIDODRINE 5 MG TAB PO ONE (18:00)
[2023-04-11] MEDS ORDERED: LACTOBACILLUS ACIDOPHILUS CAP (BACID) PO SCH (18:00)
[2023-04-11] MEDS ORDERED: GLUCAGON INJ 1MG VIAL SC PRN (18:40)
[2023-04-11] MEDS ORDERED: GLUCOSE 4GM CHEW TABLET PO PRN (18:40)
[2023-04-11] MEDS ORDERED: DEXTROSE 50% 50ML SYRINGE IV PRN (18:40)
[2023-04-11] MEDS: MULTIVITAMINS/MINERALS THERAP 1 TAB PO SCH (19:01)
[2023-04-11] MEDS: ATORVASTATIN 20 MG TAB PO SCH (19:02)
[2023-04-11] MEDS ORDERED: NS 250 ML IV ONE (20:35)
[2023-04-11] MEDS ORDERED: HYDROCORTISONE 100MG/2ML VIAL IV ONE (20:45)
[2023-04-11] MEDS: ACETAMINOPHEN 650MG ER TAB (TYLENOL ARTHRITIS) PO SCH (21:00)
[2023-04-11] MEDS: GABAPENTIN 300 MG CAP PO SCH (21:00)
[2023-04-11 22:25] VITALS: BP 125/68; TEMP 97; O2SAT 91
[2023-04-11 23:39] LABS: HEMATOCRIT 31.7 % (36.0-47.0); HEMOGLOBIN 9.9 g/dl (12.0-15.5)
[2023-04-12] MEDS: PIPERACILLIN/TAZOBACTAM SOD 3.375 GM in D5W MINI-BAG PLUS 50 ML IV SCH ×5 (00:56→23:19)
[2023-04-12 03:48] VITALS: BP 108/72; TEMP 97.1; O2SAT 93
[2023-04-12 04:42] LABS: BASO % 0.1 % (0.0-1.0); EOS % 0.1 % (0.0-3.0); HEMATOCRIT 30.6 % (36.0-47.0); HEMOGLOBIN 9.5 g/dl (12.0-15.5); LYMPH # 0.7 10^3/uL (1.5-5.0); LYMPH % 10.9 % (24.0-44.0); MEAN CORPUSCULAR HEMOGLOBIN 29.5 pg (27.0-33.0); MONO # 0.3 10^3/uL (0.0-0.8); MONO % 4.6 % (2.0-8.0); NEUTROPHILS # 5.6 10^3/uL (1.5-8.5); NEUTROPHILS % 83.7 % (36.0-66.0); PLATELET COUNT, AUTOMATED 210 10^3/uL (150-450); RED BLOOD COUNT 3.22 10^6/uL (4.00-5.40); WHITE BLOOD COUNT 6.7 10^3/uL (4.0-10.0)
[2023-04-12] MEDS: LEVOTHYROXINE 88MCG TABLET (0.088 MG) PO SCH (05:05)
[2023-04-12 05:14] LABS: BLOOD UREA NITROGEN 25 MG/DL (9-23); CALCIUM LEVEL 7.9 MG/DL (8.3-10.6); CARBON DIOXIDE LEVEL 17 MMOL/L (20-31); CHLORIDE LEVEL 107 MMOL/L (98-107); CREATININE FOR GFR 0.91 MG/DL (0.55-1.30); GLOMERULAR FILTRATION RATE > 60.0 (>32); GLUCOSE, FASTING 190 MG/DL (74-106); POTASSIUM SERUM 4.6 MMOL/L (3.5-5.1); SODIUM LEVEL 133 MMOL/L (136-145)
[2023-04-12] MEDS: NS 1,000 ML IV SCH (05:17)
[2023-04-12 08:07] VITALS: BP 109/74; TEMP 97.3; O2SAT 93
[2023-04-12] MEDS: METOPROLOL SUCC *XL* 25MG TAB (TopROL *XL*) PO SCH (12:24)
[2023-04-12 12:33] VITALS: BP 120/81; TEMP 97.4; O2SAT 97
[2023-04-12 16:12] VITALS: BP 108/70; TEMP 96.8; O2SAT 99
[2023-04-12 16:38] LABS: PROCALCITONIN 0.09 ng/ml
[2023-04-12] MEDS: ACETAMINOPHEN TAB 650MG DOSE (2X325MG) PO PRN (16:45)
[2023-04-12] MEDS: ATORVASTATIN 20 MG TAB PO SCH (16:45)
[2023-04-12] MEDS: MULTIVITAMINS/MINERALS THERAP 1 TAB PO SCH (16:45)
[2023-04-12 20:06] VITALS: BP 142/80; TEMP 97.2; O2SAT 96
[2023-04-12] MEDS: GABAPENTIN 300 MG CAP PO SCH (22:06)
[2023-04-12] MEDS: ACETAMINOPHEN 650MG ER TAB (TYLENOL ARTHRITIS) PO SCH (22:07)
[2023-04-12 23:20] VITALS: BP 111/59; TEMP 97; O2SAT 98
[2023-04-13 03:33] VITALS: BP 104/61; TEMP 97.5; O2SAT 97
[2023-04-13 06:10] LABS: BASO # 0.1 10^3/uL (0.0-0.2); BASO % 0.9 % (0.0-1.0); EOS # 0.3 10^3/uL (0.0-0.5); EOS % 4.9 % (0.0-3.0); HEMATOCRIT 28.3 % (36.0-47.0); HEMOGLOBIN 8.8 g/dl (12.0-15.5); LYMPH # 1.7 10^3/uL (1.5-5.0); LYMPH % 30.1 % (24.0-44.0); MEAN CORPUSCULAR HEMOGLOBIN 29.5 pg (27.0-33.0); MEAN CORPUSCULAR HGB CONC 31.1 g/dl (32.0-36.5); MONO # 0.8 10^3/uL (0.0-0.8); NEUTROPHILS # 2.7 10^3/uL (1.5-8.5); NEUTROPHILS % 49.6 % (36.0-66.0); PLATELET COUNT, AUTOMATED 214 10^3/uL (150-450); RED BLOOD COUNT 2.98 10^6/uL (4.00-5.40); WHITE BLOOD COUNT 5.5 10^3/uL (4.0-10.0)
[2023-04-13] MEDS: LEVOTHYROXINE 88MCG TABLET (0.088 MG) PO SCH (06:16)
[2023-04-13] MEDS: PIPERACILLIN/TAZOBACTAM SOD 3.375 GM in D5W MINI-BAG PLUS 50 ML IV SCH (06:29)
[2023-04-13 06:32] LABS: ALBUMIN 2.2 G/DL (3.2-5.2); BILIRUBIN,TOTAL 0.5 MG/DL (0.3-1.2); CALCIUM LEVEL 8.1 MG/DL (8.3-10.6); CREATININE FOR GFR 1.04 MG/DL (0.55-1.30); GLOMERULAR FILTRATION RATE 53.7 (>32); MAGNESIUM LEVEL 1.8 MG/DL (1.8-2.4); POTASSIUM SERUM 4.2 MMOL/L (3.5-5.1); TOTAL PROTEIN 5.2 G/DL (5.7-8.2)
[2023-04-13 07:54] VITALS: BP 129/79; TEMP 96.9; O2SAT 99
[2023-04-13] MEDS: ACETAMINOPHEN TAB 650MG DOSE (2X325MG) PO PRN (09:20)
[2023-04-13] MEDS: METOPROLOL SUCC *XL* 25MG TAB (TopROL *XL*) PO SCH (09:20)
[2023-04-13] MEDS ORDERED: VARIBAR NECTAR 40% w/v 240ML SUSP BTL As Ordered ONE (10:35)
[2023-04-13] MEDS ORDERED: VARIBAR PUDDING 40% w/v 230ML TUBE As Ordered ONE (10:35)
[2023-04-13] MEDS ORDERED: E-Z-PAQUE 96% w/w SUSP 176GM BTL As Ordered ONE (10:36)
[2023-04-13] MEDS ORDERED: BARIUM SULFATE 700 MG TABLET (E-Z-DISK) As Ordered ONE (10:36)
[2023-04-13] MEDS ORDERED: PIPERACILLIN/TAZOBACTAM SOD 2.25 GM in D5W MINI-BAG PLUS 50 ML IV SCH (11:00)
[2023-04-13 12:42] VITALS: BP 123/87; TEMP 96.4; O2SAT 99
[2023-04-13 15:33] VITALS: BP 127/68; TEMP 96.5; O2SAT 97
[2023-04-13] MEDS: ATORVASTATIN 20 MG TAB PO SCH (17:13)
[2023-04-13] MEDS: MULTIVITAMINS/MINERALS THERAP 1 TAB PO SCH (17:13)
[2023-04-13 20:00] VITALS: BP 134/65; TEMP 96.4; O2SAT 98
[2023-04-13] MEDS: ACETAMINOPHEN 650MG ER TAB (TYLENOL ARTHRITIS) PO SCH (21:44)
[2023-04-13] MEDS: GABAPENTIN 300 MG CAP PO SCH (21:44)
[2023-04-14] VITALS: BP 128/71; TEMP 97.1; O2SAT 97
[2023-04-14 04:00] VITALS: BP 131/68; TEMP 96.9; O2SAT 96
[2023-04-14 05:14] LABS: BASO % 0.5 % (0.0-1.0); EOS # 0.2 10^3/uL (0.0-0.5); EOS % 2.6 % (0.0-3.0); HEMATOCRIT 28.3 % (36.0-47.0); LYMPH # 2.3 10^3/uL (1.5-5.0); LYMPH % 27.5 % (24.0-44.0); MEAN CORPUSCULAR HEMOGLOBIN 29.9 pg (27.0-33.0); MEAN CORPUSCULAR HGB CONC 31.8 g/dl (32.0-36.5); MONO # 0.7 10^3/uL (0.0-0.8); MONO % 8.2 % (2.0-8.0); NEUTROPHILS % 60.7 % (36.0-66.0); PLATELET COUNT, AUTOMATED 206 10^3/uL (150-450); RED BLOOD COUNT 3.01 10^6/uL (4.00-5.40); WHITE BLOOD COUNT 8.2 10^3/uL (4.0-10.0)
[2023-04-14 05:36] LABS: ALBUMIN 2.4 G/DL (3.2-5.2); ALKALINE PHOSPHATASE 59 U/L (46-116); ALT/SGPT 16 U/L (7.0-40); AST/SGOT 30 U/L (<34); BILIRUBIN,TOTAL 0.5 MG/DL (0.3-1.2); BLOOD UREA NITROGEN 15 MG/DL (9-23); CALCIUM LEVEL 8.2 MG/DL (8.3-10.6); CARBON DIOXIDE LEVEL 19 MMOL/L (20-31); CHLORIDE LEVEL 108 MMOL/L (98-107); CREATININE FOR GFR 0.87 MG/DL (0.55-1.30); GLOMERULAR FILTRATION RATE > 60.0 (>32); GLUCOSE, FASTING 148 MG/DL (74-106); MAGNESIUM LEVEL 1.6 MG/DL (1.8-2.4); POTASSIUM SERUM 4.1 MMOL/L (3.5-5.1); SODIUM LEVEL 136 MMOL/L (136-145); TOTAL PROTEIN 5.4 G/DL (5.7-8.2)
[2023-04-14] MEDS: LEVOTHYROXINE 88MCG TABLET (0.088 MG) PO SCH (06:29)
[2023-04-14] MEDS ORDERED: MAGNESIUM OXIDE 400MG TAB (MAG-OX) PO ONE (07:30)
[2023-04-14 07:45] VITALS: BP 138/88; TEMP 97.5; O2SAT 99
[2023-04-14] MEDS: METOPROLOL SUCC *XL* 25MG TAB (TopROL *XL*) PO SCH (08:40)
[2023-04-14] MEDS: ATORVASTATIN 20 MG TAB PO SCH (15:41)
[2023-04-14] MEDS: MULTIVITAMINS/MINERALS THERAP 1 TAB PO SCH (15:41)
[2023-04-14 20:00] VITALS: BP 132/88; TEMP 97.4; O2SAT 97
[2023-04-14] MEDS: ACETAMINOPHEN 650MG ER TAB (TYLENOL ARTHRITIS) PO SCH (21:00)
[2023-04-14] MEDS: GABAPENTIN 300 MG CAP PO SCH (22:20)
[2023-04-14 23:55] VITALS: TEMP 97.8
[2023-04-15] VITALS (10 sets, daily range): BP systolic 97–153; BP diastolic 67–95; TEMP 96.1–100; O2SAT 93–98
[2023-04-15] MEDS: ACETAMINOPHEN TAB 650MG DOSE (2X325MG) PO PRN ×2 (00:20→19:51)
[2023-04-15] MEDS ORDERED: diltiaZEM 125 MG in NS 100 ML IV SCH (01:45)
[2023-04-15] MEDS ORDERED: dilTIAZem 25MG/5ML VIAL IV ONE ×2 (01:45)
[2023-04-15] MEDS ORDERED: NS 500 ML IV ONE ×2 (01:55→03:40)
[2023-04-15 05:20] LABS: BASO # 0.1 10^3/uL (0.0-0.2); BASO % 0.5 % (0.0-1.0); EOS # 0.2 10^3/uL (0.0-0.5); EOS % 1.9 % (0.0-3.0); HEMATOCRIT 29.7 % (36.0-47.0); HEMOGLOBIN 9.2 g/dl (12.0-15.5); LYMPH # 4.2 10^3/uL (1.5-5.0); LYMPH % 36.2 % (24.0-44.0); MEAN CORPUSCULAR HEMOGLOBIN 29.6 pg (27.0-33.0); MEAN CORPUSCULAR VOLUME 95.5 fl (80.0-96.0); MONO % 8.9 % (2.0-8.0); NEUTROPHILS % 51.9 % (36.0-66.0); PLATELET COUNT, AUTOMATED 201 10^3/uL (150-450); RED BLOOD COUNT 3.11 10^6/uL (4.00-5.40); WHITE BLOOD COUNT 11.6 10^3/uL (4.0-10.0)
[2023-04-15 05:46] LABS: ALBUMIN 2.4 G/DL (3.2-5.2); ALKALINE PHOSPHATASE 70 U/L (46-116); ALT/SGPT 19 U/L (7.0-40); AST/SGOT 41 U/L (<34); BILIRUBIN,TOTAL 0.6 MG/DL (0.3-1.2); BLOOD UREA NITROGEN 16 MG/DL (9-23); CALCIUM LEVEL 8.1 MG/DL (8.3-10.6); CARBON DIOXIDE LEVEL 19 MMOL/L (20-31); CHLORIDE LEVEL 108 MMOL/L (98-107); CREATININE FOR GFR 0.66 MG/DL (0.55-1.30); GLOMERULAR FILTRATION RATE > 60.0 (>32); GLUCOSE, FASTING 137 MG/DL (74-106); MAGNESIUM LEVEL 1.6 MG/DL (1.8-2.4); POTASSIUM SERUM 4.2 MMOL/L (3.5-5.1); SODIUM LEVEL 138 MMOL/L (136-145); TOTAL PROTEIN 5.6 G/DL (5.7-8.2)
[2023-04-15] MEDS: LEVOTHYROXINE 88MCG TABLET (0.088 MG) PO SCH (06:02)
[2023-04-15] MEDS ORDERED: MAGNESIUM OXIDE 400MG TAB (MAG-OX) PO ONE (08:05)
[2023-04-15] MEDS: METOPROLOL SUCC *XL* 25MG TAB (TopROL *XL*) PO SCH (09:20)
[2023-04-15] MEDS: ATORVASTATIN 20 MG TAB PO SCH (15:11)
[2023-04-15] MEDS: MULTIVITAMINS/MINERALS THERAP 1 TAB PO SCH (15:12)
[2023-04-15] MEDS: ACETAMINOPHEN 650MG ER TAB (TYLENOL ARTHRITIS) PO SCH (21:10)
[2023-04-15] MEDS: GABAPENTIN 300 MG CAP PO SCH (21:10)
[2023-04-15] MEDS: HEPARIN SOD (PORCINE) 5000UNITS/ML 1ML VIAL/SYRINGE SQ SCH (21:11)
[2023-04-15] MEDS: ANALGESIC BALM CRM 3OZ TOP PRN (22:38)
[2023-04-16] VITALS (10 sets, daily range): BP systolic 110–150; BP diastolic 53–100; TEMP 96.7–98.3; O2SAT 96–98
[2023-04-16] MEDS: LEVOTHYROXINE 88MCG TABLET (0.088 MG) PO SCH (06:33)
[2023-04-16 07:01] LABS: BASO % 0.4 % (0.0-1.0); EOS # 0.2 10^3/uL (0.0-0.5); EOS % 2.1 % (0.0-3.0); HEMATOCRIT 30.5 % (36.0-47.0); HEMOGLOBIN 9.6 g/dl (12.0-15.5); LYMPH # 2.5 10^3/uL (1.5-5.0); LYMPH % 27.7 % (24.0-44.0); MEAN CORPUSCULAR HEMOGLOBIN 29.3 pg (27.0-33.0); MEAN CORPUSCULAR HGB CONC 31.5 g/dl (32.0-36.5); MONO # 0.6 10^3/uL (0.0-0.8); MONO % 6.4 % (2.0-8.0); NEUTROPHILS # 5.6 10^3/uL (1.5-8.5); NEUTROPHILS % 62.8 % (36.0-66.0); PLATELET COUNT, AUTOMATED 206 10^3/uL (150-450); RED BLOOD COUNT 3.28 10^6/uL (4.00-5.40)
[2023-04-16 07:23] LABS: ALBUMIN 2.4 G/DL (3.2-5.2); ALKALINE PHOSPHATASE 74 U/L (46-116); ALT/SGPT 21 U/L (7.0-40); AST/SGOT 24 U/L (<34); BILIRUBIN,TOTAL 0.6 MG/DL (0.3-1.2); BLOOD UREA NITROGEN 12 MG/DL (9-23); CALCIUM LEVEL 8.5 MG/DL (8.3-10.6); CARBON DIOXIDE LEVEL 21 MMOL/L (20-31); CHLORIDE LEVEL 108 MMOL/L (98-107); CREATININE FOR GFR 0.62 MG/DL (0.55-1.30); GLOMERULAR FILTRATION RATE > 60.0 (>32); GLUCOSE, FASTING 151 MG/DL (74-106); MAGNESIUM LEVEL 1.7 MG/DL (1.8-2.4); POTASSIUM SERUM 4.3 MMOL/L (3.5-5.1); SODIUM LEVEL 136 MMOL/L (136-145); TOTAL PROTEIN 5.5 G/DL (5.7-8.2)
[2023-04-16] MEDS ORDERED: MAGNESIUM OXIDE 400MG TAB (MAG-OX) PO ONE (08:00)
[2023-04-16] MEDS: METOPROLOL SUCC *XL* 25MG TAB (TopROL *XL*) PO SCH (09:46)
[2023-04-16] MEDS: HEPARIN SOD (PORCINE) 5000UNITS/ML 1ML VIAL/SYRINGE SQ SCH ×2 (09:46→21:14)
[2023-04-16] MEDS: DIGOXIN 0.25 MG TAB PO SCH ×3 (11:56→23:39)
[2023-04-16] MEDS: MULTIVITAMINS/MINERALS THERAP 1 TAB PO SCH (16:22)
[2023-04-16] MEDS: ATORVASTATIN 20 MG TAB PO SCH (16:22)
[2023-04-16] MEDS: GABAPENTIN 300 MG CAP PO SCH (21:14)
[2023-04-16] MEDS: ANALGESIC BALM CRM 3OZ TOP PRN (21:14)
[2023-04-16] MEDS: ACETAMINOPHEN 650MG ER TAB (TYLENOL ARTHRITIS) PO SCH (21:14)
[2023-04-17] VITALS (7 sets, daily range): BP systolic 132–180; BP diastolic 76–98; TEMP 96.2–97.8; O2SAT 94–97
[2023-04-17] MEDS ORDERED: amLODIPine 5 MG TAB PO ONE (05:15)
[2023-04-17] MEDS: LEVOTHYROXINE 88MCG TABLET (0.088 MG) PO SCH (05:47)
[2023-04-17] MEDS: DIGOXIN 0.25 MG TAB PO SCH (05:47)
[2023-04-17 06:19] LABS: BASO % 0.5 % (0.0-1.0); EOS # 0.2 10^3/uL (0.0-0.5); EOS % 2.6 % (0.0-3.0); HEMATOCRIT 29.7 % (36.0-47.0); HEMOGLOBIN 9.3 g/dl (12.0-15.5); LYMPH # 2.5 10^3/uL (1.5-5.0); MEAN CORPUSCULAR HEMOGLOBIN 29.2 pg (27.0-33.0); MEAN CORPUSCULAR HGB CONC 31.3 g/dl (32.0-36.5); MEAN CORPUSCULAR VOLUME 93.1 fl (80.0-96.0); MONO # 0.6 10^3/uL (0.0-0.8); MONO % 7.4 % (2.0-8.0); NEUTROPHILS # 4.6 10^3/uL (1.5-8.5); PLATELET COUNT, AUTOMATED 221 10^3/uL (150-450); RED BLOOD COUNT 3.19 10^6/uL (4.00-5.40); WHITE BLOOD COUNT 7.9 10^3/uL (4.0-10.0)
[2023-04-17 06:30] LABS: ALBUMIN 2.3 G/DL (3.2-5.2); ALKALINE PHOSPHATASE 72 U/L (46-116); ALT/SGPT 20 U/L (7.0-40); AST/SGOT 25 U/L (<34); BILIRUBIN,TOTAL 0.6 MG/DL (0.3-1.2); BLOOD UREA NITROGEN 18 MG/DL (9-23); CALCIUM LEVEL 8.6 MG/DL (8.3-10.6); CARBON DIOXIDE LEVEL 21 MMOL/L (20-31); CHLORIDE LEVEL 108 MMOL/L (98-107); CREATININE FOR GFR 0.59 MG/DL (0.55-1.30); GLOMERULAR FILTRATION RATE > 60.0 (>32); GLUCOSE, FASTING 147 MG/DL (74-106); MAGNESIUM LEVEL 1.6 MG/DL (1.8-2.4); POTASSIUM SERUM 4.6 MMOL/L (3.5-5.1); SODIUM LEVEL 136 MMOL/L (136-145); TOTAL PROTEIN 5.4 G/DL (5.7-8.2)
[2023-04-17] MEDS ORDERED: MAGNESIUM OXIDE 400MG TAB (MAG-OX) PO ONE (07:45)
[2023-04-17] MEDS: METOPROLOL SUCC *XL* 25MG TAB (TopROL *XL*) PO SCH (09:25)
[2023-04-17] MEDS: HEPARIN SOD (PORCINE) 5000UNITS/ML 1ML VIAL/SYRINGE SQ SCH ×2 (09:25→21:07)
[2023-04-17 10:57] LABS: HEMATOCRIT 30.3 % (36.0-47.0); HEMOGLOBIN 9.6 g/dl (12.0-15.5); MEAN CORPUSCULAR HEMOGLOBIN 29.8 pg (27.0-33.0); MEAN CORPUSCULAR HGB CONC 31.7 g/dl (32.0-36.5); MEAN CORPUSCULAR VOLUME 94.1 fl (80.0-96.0); PLATELET COUNT, AUTOMATED 228 10^3/uL (150-450); RED BLOOD COUNT 3.22 10^6/uL (4.00-5.40); WHITE BLOOD COUNT 9.4 10^3/uL (4.0-10.0)
[2023-04-17 11:29] LABS: ALBUMIN 2.3 G/DL (3.2-5.2); ALKALINE PHOSPHATASE 77 U/L (46-116); ALT/SGPT 19 U/L (7.0-40); AST/SGOT 20 U/L (<34); BILIRUBIN,TOTAL 0.6 MG/DL (0.3-1.2); BLOOD UREA NITROGEN 17 MG/DL (9-23); CALCIUM LEVEL 8.7 MG/DL (8.3-10.6); CARBON DIOXIDE LEVEL 25 MMOL/L (20-31); CHLORIDE LEVEL 106 MMOL/L (98-107); CREATININE FOR GFR 0.65 MG/DL (0.55-1.30); GLOMERULAR FILTRATION RATE > 60.0 (>32); GLUCOSE, FASTING 232 MG/DL (74-106); POTASSIUM SERUM 4.2 MMOL/L (3.5-5.1); SODIUM LEVEL 137 MMOL/L (136-145); TOTAL PROTEIN 5.5 G/DL (5.7-8.2)
[2023-04-17] MEDS: ATORVASTATIN 20 MG TAB PO SCH (15:03)
[2023-04-17] MEDS: MULTIVITAMINS/MINERALS THERAP 1 TAB PO SCH (15:03)
[2023-04-17] MEDS: GABAPENTIN 300 MG CAP PO SCH (21:07)
[2023-04-17] MEDS: ACETAMINOPHEN 650MG ER TAB (TYLENOL ARTHRITIS) PO SCH (21:07)
[2023-04-17] MEDS: ANALGESIC BALM CRM 3OZ TOP PRN (21:12)
[2023-04-18] VITALS (7 sets, daily range): BP systolic 130–150; BP diastolic 78–96; TEMP 96.4–97.5; O2SAT 95–98
[2023-04-18 05:11] LABS: BASO % 0.4 % (0.0-1.0); EOS # 0.2 10^3/uL (0.0-0.5); HEMOGLOBIN 9.5 g/dl (12.0-15.5); LYMPH # 2.2 10^3/uL (1.5-5.0); LYMPH % 27.1 % (24.0-44.0); MEAN CORPUSCULAR HEMOGLOBIN 29.8 pg (27.0-33.0); MEAN CORPUSCULAR HGB CONC 31.7 g/dl (32.0-36.5); MONO # 0.6 10^3/uL (0.0-0.8); MONO % 6.9 % (2.0-8.0); NEUTROPHILS # 4.9 10^3/uL (1.5-8.5); PLATELET COUNT, AUTOMATED 225 10^3/uL (150-450); RED BLOOD COUNT 3.19 10^6/uL (4.00-5.40); WHITE BLOOD COUNT 7.9 10^3/uL (4.0-10.0)
[2023-04-18 05:23] LABS: ALBUMIN 2.4 G/DL (3.2-5.2); ALKALINE PHOSPHATASE 75 U/L (46-116); ALT/SGPT 18 U/L (7.0-40); AST/SGOT 20 U/L (<34); BILIRUBIN,TOTAL 0.7 MG/DL (0.3-1.2); BLOOD UREA NITROGEN 14 MG/DL (9-23); CALCIUM LEVEL 8.2 MG/DL (8.3-10.6); CARBON DIOXIDE LEVEL 22 MMOL/L (20-31); CHLORIDE LEVEL 106 MMOL/L (98-107); CREATININE FOR GFR 0.67 MG/DL (0.55-1.30); GLOMERULAR FILTRATION RATE > 60.0 (>32); GLUCOSE, FASTING 143 MG/DL (74-106); MAGNESIUM LEVEL 1.6 MG/DL (1.8-2.4); POTASSIUM SERUM 4.2 MMOL/L (3.5-5.1); SODIUM LEVEL 135 MMOL/L (136-145); TOTAL PROTEIN 5.4 G/DL (5.7-8.2)
[2023-04-18] MEDS: LEVOTHYROXINE 88MCG TABLET (0.088 MG) PO SCH (05:49)
[2023-04-18] MEDS: HEPARIN SOD (PORCINE) 5000UNITS/ML 1ML VIAL/SYRINGE SQ SCH ×2 (08:47→20:01)
[2023-04-18] MEDS: METOPROLOL SUCC *XL* 25MG TAB (TopROL *XL*) PO SCH (08:48)
[2023-04-18] MEDS: DIGOXIN 0.125 MG TAB PO SCH (08:48)
[2023-04-18] MEDS ORDERED: MAGNESIUM OXIDE 400MG TAB (MAG-OX) PO ONE (09:00)
[2023-04-18] MEDS ORDERED: amLODIPine 5 MG TAB PO SCH (09:00)
[2023-04-18] MEDS: ACETAMINOPHEN TAB 650MG DOSE (2X325MG) PO PRN (13:21)
[2023-04-18] MEDS: ATORVASTATIN 20 MG TAB PO SCH (15:42)
[2023-04-18] MEDS: MULTIVITAMINS/MINERALS THERAP 1 TAB PO SCH (15:42)
[2023-04-18] MEDS: ACETAMINOPHEN 650MG ER TAB (TYLENOL ARTHRITIS) PO SCH (20:01)
[2023-04-18] MEDS: GABAPENTIN 300 MG CAP PO SCH (20:01)
[2023-04-19 03:35] VITALS: BP 124/72; TEMP 97.2; O2SAT 98
[2023-04-19 05:14] LABS: ALBUMIN 2.3 G/DL (3.2-5.2); ALKALINE PHOSPHATASE 74 U/L (46-116); ALT/SGPT 15 U/L (7.0-40); AST/SGOT 17 U/L (<34); BILIRUBIN,TOTAL 0.6 MG/DL (0.3-1.2); BLOOD UREA NITROGEN 11 MG/DL (9-23); CALCIUM LEVEL 8.3 MG/DL (8.3-10.6); CARBON DIOXIDE LEVEL 23 MMOL/L (20-31); CHLORIDE LEVEL 106 MMOL/L (98-107); CREATININE FOR GFR 0.62 MG/DL (0.55-1.30); GLOMERULAR FILTRATION RATE > 60.0 (>32); GLUCOSE, FASTING 141 MG/DL (74-106); MAGNESIUM LEVEL 1.7 MG/DL (1.8-2.4); POTASSIUM SERUM 4.2 MMOL/L (3.5-5.1); SODIUM LEVEL 136 MMOL/L (136-145); TOTAL PROTEIN 5.3 G/DL (5.7-8.2)
[2023-04-19] MEDS: LEVOTHYROXINE 88MCG TABLET (0.088 MG) PO SCH (05:30)
[2023-04-19] MEDS ORDERED: MAG SULF 1GM/100ML (MAG RUN) 1 GM in IV 1 EA IV ONE (06:00)
[2023-04-19 06:45] LABS: THYROID STIMULATING HORMONE 4.473 uIU/ML (0.55-4.78)
[2023-04-19 06:46] LABS: FREE T4 1.17 NG/DL (0.89-1.76)
[2023-04-19 07:44] VITALS: BP 136/90; TEMP 96.6; O2SAT 97
[2023-04-19] MEDS ORDERED: DIGO0.123 PO (08:52)
[2023-04-19] MEDS ORDERED: MUSCCRE9 TOP (08:52)
[2023-04-19] MEDS: DIGOXIN 0.125 MG TAB PO SCH (08:55)
[2023-04-19 08:56] VITALS: BP 136/90
[2023-04-19] MEDS: METOPROLOL SUCC *XL* 25MG TAB (TopROL *XL*) PO SCH (08:56)
[2023-04-19] MEDS: HEPARIN SOD (PORCINE) 5000UNITS/ML 1ML VIAL/SYRINGE SQ SCH (08:56)
== END 2023-04-19 10:43 | DRG 315 ==
LOC: M ED 11:58 → EDBD 11:58 → M ED INP 17:39 → M PCU 22:21
PROVIDERS: ADMIT General Practice; ATTEND General Practice
DX: I95.9 Hypotension, unspecified (principal); I50.32 Chronic diastolic (congestive) heart failure; I48.20 Chronic atrial fibrillation, unspecified; N17.9 Acute kidney failure, unspecified; I69.351 Hemiplegia and hemiparesis following cerebral infarction affecting right dominant side; N13.30 Unspecified hydronephrosis; E87.1 Hypo-osmolality and hyponatremia; D62 Acute posthemorrhagic anemia; I47.20 Ventricular tachycardia, unspecified; R33.9 Retention of urine, unspecified; I25.10 Atherosclerotic heart disease of native coronary artery without angina pectoris; R91.8 Other nonspecific abnormal finding of lung field; D35.00 Benign neoplasm of unspecified adrenal gland; I11.0 Hypertensive heart disease with heart failure; E03.9 Hypothyroidism, unspecified; E11.9 Type 2 diabetes mellitus without complications; E78.5 Hyperlipidemia, unspecified; I49.3 Ventricular premature depolarization; E86.0 Dehydration; Z98.49 Cataract extraction status, unspecified eye; Z90.79 Acquired absence of other genital organ(s); Z20.822 Contact with and (suspected) exposure to COVID-19; Z79.82 Long term (current) use of aspirin; Z79.01 Long term (current) use of anticoagulants; Z79.890 Hormone replacement therapy; Z79.84 Long term (current) use of oral hypoglycemic drugs; Z79.899 Other long term (current) drug therapy

== ENCOUNTER → 2023-04-19 | Outpatient (REF) ==
[~2023-04-19] MED LIST changes: +CIPR500T39 PO; +DIGO0.123 PO; +GABA-283 PO; -GABA-284 PO; +MUSCCRE9 TOP; +OMEP-173 PO
== END ==
PROVIDERS: ATTEND Physician Assistant
DX: A04.72 Enterocolitis due to Clostridium difficile, not specified as recurrent (principal); Z53.8 Procedure and treatment not carried out for other reasons

== ENCOUNTER → 2023-04-20 | Outpatient (REF) | payer MEDICARE ==
[2023-04-20 08:37] LABS: HEMATOCRIT 32.5 % (36.0-47.0); HEMOGLOBIN 10.1 g/dl (12.0-15.5); MEAN CORPUSCULAR HEMOGLOBIN 29.7 pg (27.0-33.0); MEAN CORPUSCULAR HGB CONC 31.1 g/dl (32.0-36.5); MEAN CORPUSCULAR VOLUME 95.6 fl (80.0-96.0); PLATELET COUNT, AUTOMATED 210 10^3/uL (150-450); WHITE BLOOD COUNT 7.8 10^3/uL (4.0-10.0)
[2023-04-20 09:00] LABS: BLOOD UREA NITROGEN 14 MG/DL (9-23); CALCIUM LEVEL 8.8 MG/DL (8.3-10.6); CARBON DIOXIDE LEVEL 22 MMOL/L (20-31); CHLORIDE LEVEL 104 MMOL/L (98-107); CREATININE FOR GFR 0.61 MG/DL (0.55-1.30); GLOMERULAR FILTRATION RATE > 60.0 (>32); GLUCOSE, FASTING 124 MG/DL (74-106); MAGNESIUM LEVEL 1.7 MG/DL (1.8-2.4); POTASSIUM SERUM 4.6 MMOL/L (3.5-5.1); SODIUM LEVEL 139 MMOL/L (136-145)
== END ==
PROVIDERS: ATTEND Physician Assistant
DX: M25.532 Pain in left wrist (principal)

== ENCOUNTER → 2023-04-25 | Outpatient (REF) | PROVIDERS: ATTEND Physician Assistant | DX: I48.91 Unspecified atrial fibrillation (principal) ==

== ENCOUNTER → 2023-04-27 | Outpatient (REF) ==
[~2023-04-27] MED LIST changes: -GABA-283 PO; +GABA-284 PO
[2023-04-27 08:05] LABS: HEMATOCRIT 31.8 % (36.0-47.0); HEMOGLOBIN 9.5 g/dl (12.0-15.5); MEAN CORPUSCULAR HEMOGLOBIN 28.5 pg (27.0-33.0); MEAN CORPUSCULAR HGB CONC 29.9 g/dl (32.0-36.5); MEAN CORPUSCULAR VOLUME 95.5 fl (80.0-96.0); PLATELET COUNT, AUTOMATED 191 10^3/uL (150-450); RED BLOOD COUNT 3.33 10^6/uL (4.00-5.40); WHITE BLOOD COUNT 6.6 10^3/uL (4.0-10.0)
[2023-04-27 08:43] LABS: BLOOD UREA NITROGEN 13 MG/DL (9-23); CALCIUM LEVEL 8.6 MG/DL (8.3-10.6); CARBON DIOXIDE LEVEL 26 MMOL/L (20-31); CHLORIDE LEVEL 106 MMOL/L (98-107); CREATININE FOR GFR 0.64 MG/DL (0.55-1.30); GLOMERULAR FILTRATION RATE > 60.0 (>32); GLUCOSE, FASTING 114 MG/DL (74-106); MAGNESIUM LEVEL 1.8 MG/DL (1.8-2.4); POTASSIUM SERUM 4.5 MMOL/L (3.5-5.1); SODIUM LEVEL 142 MMOL/L (136-145)
== END ==
PROVIDERS: ATTEND Physician Assistant
DX: E11.9 Type 2 diabetes mellitus without complications (principal)

== ENCOUNTER → 2023-05-02 | Outpatient (REF) ==
[2023-05-02 08:22] LABS: HEMATOCRIT 31.1 % (36.0-47.0); HEMOGLOBIN 9.5 g/dl (12.0-15.5); MEAN CORPUSCULAR HEMOGLOBIN 27.9 pg (27.0-33.0); MEAN CORPUSCULAR HGB CONC 30.5 g/dl (32.0-36.5); MEAN CORPUSCULAR VOLUME 91.2 fl (80.0-96.0); PLATELET COUNT, AUTOMATED 231 10^3/uL (150-450); RED BLOOD COUNT 3.41 10^6/uL (4.00-5.40); WHITE BLOOD COUNT 7.2 10^3/uL (4.0-10.0)
[2023-05-02 08:49] LABS: PERCENT SATURATION 4.7 % (13.2-45.0)
[2023-05-02 08:51] LABS: FOLATE 23.83 NG/ML (>5.4)
== END ==
PROVIDERS: ATTEND Physician Assistant
DX: I48.91 Unspecified atrial fibrillation (principal)

== ENCOUNTER → 2023-05-04 | Outpatient (REF) ==
[2023-05-04 10:27] LABS: HEMATOCRIT 32.6 % (36.0-47.0); HEMOGLOBIN 9.8 g/dl (12.0-15.5); MEAN CORPUSCULAR HEMOGLOBIN 27.7 pg (27.0-33.0); MEAN CORPUSCULAR HGB CONC 30.1 g/dl (32.0-36.5); MEAN CORPUSCULAR VOLUME 92.1 fl (80.0-96.0); PLATELET COUNT, AUTOMATED 241 10^3/uL (150-450); RED BLOOD COUNT 3.54 10^6/uL (4.00-5.40); WHITE BLOOD COUNT 6.5 10^3/uL (4.0-10.0)
[2023-05-04 10:52] LABS: TOTAL IRON BINDING CAPACITY 339 UG/DL (250-425)
[2023-05-04 10:53] LABS: IRON (FE) 11 UG/DL (50-170); PERCENT SATURATION 3.2 % (13.2-45.0)
[2023-05-04 10:56] LABS: VITAMIN B12 LEVEL 1097 PG/ML (211-911)
[2023-05-04 11:48] LABS: BLOOD UREA NITROGEN 11 MG/DL (9-23); CALCIUM LEVEL 8.8 MG/DL (8.3-10.6); CARBON DIOXIDE LEVEL 26 MMOL/L (20-31); CHLORIDE LEVEL 105 MMOL/L (98-107); CREATININE FOR GFR 0.57 MG/DL (0.55-1.30); GLOMERULAR FILTRATION RATE > 60.0 (>32); GLUCOSE, FASTING 114 MG/DL (74-106); MAGNESIUM LEVEL 1.8 MG/DL (1.8-2.4); POTASSIUM SERUM 4.5 MMOL/L (3.5-5.1); SODIUM LEVEL 140 MMOL/L (136-145)
[2023-05-04 11:53] LABS: FOLATE > 24.00 NG/ML (>5.4)
== END ==
PROVIDERS: ATTEND Physician Assistant
DX: E11.9 Type 2 diabetes mellitus without complications (principal)

== ENCOUNTER → 2023-05-09 | Outpatient (REF) ==
[2023-05-09 08:22] LABS: HEMATOCRIT 31.4 % (36.0-47.0); HEMOGLOBIN 9.4 g/dl (12.0-15.5); MEAN CORPUSCULAR HEMOGLOBIN 27.4 pg (27.0-33.0); MEAN CORPUSCULAR HGB CONC 29.9 g/dl (32.0-36.5); MEAN CORPUSCULAR VOLUME 91.5 fl (80.0-96.0); PLATELET COUNT, AUTOMATED 234 10^3/uL (150-450); RED BLOOD COUNT 3.43 10^6/uL (4.00-5.40); WHITE BLOOD COUNT 6.1 10^3/uL (4.0-10.0)
== END ==
PROVIDERS: ATTEND Physician Assistant
DX: D64.9 Anemia, unspecified (principal)

== ENCOUNTER → 2023-05-16 | Outpatient (REF) ==
[2023-05-16 08:25] LABS: HEMATOCRIT 36.8 % (36.0-47.0); HEMOGLOBIN 11.1 g/dl (12.0-15.5); MEAN CORPUSCULAR HEMOGLOBIN 27.6 pg (27.0-33.0); MEAN CORPUSCULAR HGB CONC 30.2 g/dl (32.0-36.5); MEAN CORPUSCULAR VOLUME 91.5 fl (80.0-96.0); PLATELET COUNT, AUTOMATED 221 10^3/uL (150-450); RED BLOOD COUNT 4.02 10^6/uL (4.00-5.40); WHITE BLOOD COUNT 9.9 10^3/uL (4.0-10.0)
== END ==
PROVIDERS: ATTEND Physician Assistant
DX: D64.9 Anemia, unspecified (principal)

== ENCOUNTER → 2023-05-18 | Outpatient (REF) ==
[2023-05-18 08:26] LABS: BASO # 0.1 10^3/uL (0.0-0.2); BASO % 0.6 % (0.0-1.0); EOS # 0.3 10^3/uL (0.0-0.5); EOS % 3.2 % (0.0-3.0); HEMATOCRIT 35.1 % (36.0-47.0); HEMOGLOBIN 10.4 g/dl (12.0-15.5); LYMPH % 25.2 % (24.0-44.0); MEAN CORPUSCULAR HEMOGLOBIN 27.8 pg (27.0-33.0); MEAN CORPUSCULAR HGB CONC 29.6 g/dl (32.0-36.5); MEAN CORPUSCULAR VOLUME 93.9 fl (80.0-96.0); MONO # 0.6 10^3/uL (0.0-0.8); MONO % 8.1 % (2.0-8.0); NEUTROPHILS # 4.9 10^3/uL (1.5-8.5); NEUTROPHILS % 62.6 % (36.0-66.0); PLATELET COUNT, AUTOMATED 197 10^3/uL (150-450); RED BLOOD COUNT 3.74 10^6/uL (4.00-5.40); WHITE BLOOD COUNT 7.9 10^3/uL (4.0-10.0)
[2023-05-18 08:28] LABS: HEMATOCRIT 35.2 % (36.0-47.0); HEMOGLOBIN 10.3 g/dl (12.0-15.5); MEAN CORPUSCULAR HEMOGLOBIN 27.2 pg (27.0-33.0); MEAN CORPUSCULAR HGB CONC 29.3 g/dl (32.0-36.5); MEAN CORPUSCULAR VOLUME 92.9 fl (80.0-96.0); PLATELET COUNT, AUTOMATED 201 10^3/uL (150-450); RED BLOOD COUNT 3.79 10^6/uL (4.00-5.40); WHITE BLOOD COUNT 8.3 10^3/uL (4.0-10.0)
[2023-05-18 08:51] LABS: BLOOD UREA NITROGEN 19 MG/DL (9-23); CALCIUM LEVEL 9.5 MG/DL (8.3-10.6); CARBON DIOXIDE LEVEL 26 MMOL/L (20-31); CHLORIDE LEVEL 106 MMOL/L (98-107); CREATININE FOR GFR 0.66 MG/DL (0.55-1.30); DIGOXIN LEVEL 1.6 NG/ML (0.8-2.0); GLOMERULAR FILTRATION RATE > 60.0 (>32); GLUCOSE, FASTING 136 MG/DL (74-106); SODIUM LEVEL 142 MMOL/L (136-145)
[2023-05-18 08:53] LABS: THYROID STIMULATING HORMONE 10.188 uIU/ML (0.55-4.78)
== END ==
PROVIDERS: ATTEND Physician Assistant
DX: I48.91 Unspecified atrial fibrillation (principal)

== ENCOUNTER → 2023-05-23 | Outpatient (REF) ==
[2023-05-23 08:12] LABS: HEMATOCRIT 36.9 % (36.0-47.0); MEAN CORPUSCULAR HEMOGLOBIN 27.8 pg (27.0-33.0); MEAN CORPUSCULAR HGB CONC 29.8 g/dl (32.0-36.5); MEAN CORPUSCULAR VOLUME 93.2 fl (80.0-96.0); PLATELET COUNT, AUTOMATED 211 10^3/uL (150-450); RED BLOOD COUNT 3.96 10^6/uL (4.00-5.40); WHITE BLOOD COUNT 9.4 10^3/uL (4.0-10.0)
== END ==
PROVIDERS: ATTEND Physician Assistant
DX: D64.9 Anemia, unspecified (principal)

== ENCOUNTER → 2023-05-24 | Outpatient (REF) | PROVIDERS: ATTEND Physician Assistant | DX: D64.9 Anemia, unspecified (principal); Z53.8 Procedure and treatment not carried out for other reasons ==

== ENCOUNTER → 2023-05-25 | Outpatient (REF) ==
[2023-05-25 09:22] LABS: HEMATOCRIT 36.9 % (36.0-47.0); MEAN CORPUSCULAR HEMOGLOBIN 27.6 pg (27.0-33.0); MEAN CORPUSCULAR HGB CONC 29.8 g/dl (32.0-36.5); MEAN CORPUSCULAR VOLUME 92.7 fl (80.0-96.0); PLATELET COUNT, AUTOMATED 216 10^3/uL (150-450); RED BLOOD COUNT 3.98 10^6/uL (4.00-5.40); WHITE BLOOD COUNT 9.4 10^3/uL (4.0-10.0)
== END ==
PROVIDERS: ATTEND Physician Assistant
DX: I48.91 Unspecified atrial fibrillation (principal)

== ENCOUNTER → 2023-06-01 | Outpatient (REF) ==
[2023-06-01 09:24] LABS: HEMATOCRIT 36.5 % (36.0-47.0); MEAN CORPUSCULAR HEMOGLOBIN 27.6 pg (27.0-33.0); MEAN CORPUSCULAR HGB CONC 30.1 g/dl (32.0-36.5); MEAN CORPUSCULAR VOLUME 91.7 fl (80.0-96.0); PLATELET COUNT, AUTOMATED 207 10^3/uL (150-450); RED BLOOD COUNT 3.98 10^6/uL (4.00-5.40); WHITE BLOOD COUNT 10.2 10^3/uL (4.0-10.0)
[2023-06-01 09:50] LABS: DIGOXIN LEVEL 1.5 NG/ML (0.8-2.0)
[2023-06-01 09:51] LABS: BLOOD UREA NITROGEN 31 MG/DL (9-23); CALCIUM LEVEL 9.3 MG/DL (8.3-10.6); CARBON DIOXIDE LEVEL 25 MMOL/L (20-31); CHLORIDE LEVEL 107 MMOL/L (98-107); CREATININE FOR GFR 0.76 MG/DL (0.55-1.30); GLOMERULAR FILTRATION RATE > 60.0 (>32); GLUCOSE, FASTING 134 MG/DL (74-106); MAGNESIUM LEVEL 1.9 MG/DL (1.8-2.4); SODIUM LEVEL 140 MMOL/L (136-145)
== END ==
PROVIDERS: ATTEND Physician Assistant
DX: I48.91 Unspecified atrial fibrillation (principal); R31.0 Gross hematuria

== ENCOUNTER → 2023-06-02 | Outpatient (REF) ==
[~2023-06-02] MED LIST changes: +APAP325T4 PO; +BACL10TA2 PO; +BISA10SU27 PR; +ENSULIQ51 PO; +FERR1TAB8 PO; +FLEEENE12 PR; +MILKSUS7 PO; +SILV1CRE60 TOP
[2023-06-02 17:50] LABS: HEMATOCRIT 40.6 % (36.0-47.0); HEMOGLOBIN 11.8 g/dl (12.0-15.5); MEAN CORPUSCULAR HEMOGLOBIN 27.6 pg (27.0-33.0); MEAN CORPUSCULAR HGB CONC 29.1 g/dl (32.0-36.5); MEAN CORPUSCULAR VOLUME 95.1 fl (80.0-96.0); PLATELET COUNT, AUTOMATED 229 10^3/uL (150-450); RED BLOOD COUNT 4.27 10^6/uL (4.00-5.40); WHITE BLOOD COUNT 9.9 10^3/uL (4.0-10.0)
[2023-06-02 18:20] LABS: BLOOD UREA NITROGEN 28 MG/DL (9-23); CALCIUM LEVEL 9.1 MG/DL (8.3-10.6); CARBON DIOXIDE LEVEL 24 MMOL/L (20-31); CHLORIDE LEVEL 106 MMOL/L (98-107); CREATININE FOR GFR 0.72 MG/DL (0.55-1.30); GLOMERULAR FILTRATION RATE > 60.0 (>32); GLUCOSE, FASTING 157 MG/DL (74-106); POTASSIUM SERUM 4.6 MMOL/L (3.5-5.1); SODIUM LEVEL 143 MMOL/L (136-145)
== END ==
PROVIDERS: ATTEND Physician Assistant
DX: R31.0 Gross hematuria (principal)

== ENCOUNTER 2023-06-03 15:31 | Inpatient (IN) | payer MEDICARE ==
[~2023-06-03] VITALS: Ht 149.9 cm; Wt 39.9 kg
[~2023-06-03 15:31] MED LIST changes: -APAP325T4 PO; -ASPI81TAEC PO; -BACL10TA2 PO; -BISA10SU27 PR; -COLA100C5 PO; -ENSULIQ51 PO; -FERR1TAB8 PO; -FLEEENE12 PR; -MILKSUS7 PO; -SENN8.6T58 PO; -SILV1CRE60 TOP
[2023-06-03 18:05] LABS: BASO % 0.2 % (0.0-1.0); EOS # 0.1 10^3/uL (0.0-0.5); EOS % 0.6 % (0.0-3.0); LYMPH # 3.1 10^3/uL (1.5-5.0); LYMPH % 21.2 % (24.0-44.0); MEAN CORPUSCULAR HEMOGLOBIN 27.5 pg (27.0-33.0); MEAN CORPUSCULAR HGB CONC 30.2 g/dl (32.0-36.5); MEAN CORPUSCULAR VOLUME 90.9 fl (80.0-96.0); MONO # 1.4 10^3/uL (0.0-0.8); MONO % 9.6 % (2.0-8.0); NEUTROPHILS # 9.8 10^3/uL (1.5-8.5); NEUTROPHILS % 68.1 % (36.0-66.0); PLATELET COUNT, AUTOMATED 206 10^3/uL (150-450); RED BLOOD COUNT 4.73 10^6/uL (4.00-5.40); WHITE BLOOD COUNT 14.5 10^3/uL (4.0-10.0)
[2023-06-03 18:27] LABS: ALBUMIN 3.5 G/DL (3.2-5.2); ALKALINE PHOSPHATASE 89 U/L (46-116); ALT/SGPT 13 U/L (7.0-40); AST/SGOT 19 U/L (<34); BILIRUBIN,DIRECT 0.6 MG/DL (<0.4); BILIRUBIN,TOTAL 1.5 MG/DL (0.3-1.2); BLOOD UREA NITROGEN 30 MG/DL (9-23); CARBON DIOXIDE LEVEL 24 MMOL/L (20-31); CHLORIDE LEVEL 106 MMOL/L (98-107); CREATININE FOR GFR 0.78 MG/DL (0.55-1.30); DIGOXIN LEVEL 1.6 NG/ML (0.8-2.0); GLOMERULAR FILTRATION RATE > 60.0 (>32); GLUCOSE, FASTING 171 MG/DL (74-106); SODIUM LEVEL 142 MMOL/L (136-145); TOTAL PROTEIN 7.1 G/DL (5.7-8.2)
[2023-06-03] MEDS ORDERED: MED REC IN PROGRESS XX SCH (18:45)
[2023-06-03] MEDS ORDERED: hydrALAZINE 20MG/ML 1ML VIAL IV PRN (19:15)
[2023-06-03] MEDS ORDERED: ACETAMINOPHEN TAB 650MG DOSE (2X325MG) PO PRN (19:15)
[2023-06-03] MEDS ORDERED: GLUCOSE 4GM CHEW TABLET PO PRN (19:50)
[2023-06-03] MEDS ORDERED: GLUCAGON INJ 1MG VIAL SC PRN (19:50)
[2023-06-03] MEDS ORDERED: DEXTROSE 50% 50ML SYRINGE IV PRN (19:50)
[2023-06-03] MEDS ORDERED: BACL10TA2 PO (20:05)
[2023-06-03] MEDS ORDERED: DIGO0.123 PO (20:05)
[2023-06-03] MEDS ORDERED: ENSULIQ51 PO ×2 (20:13)
[2023-06-03] MEDS ORDERED: FERR1TAB8 PO (20:20)
[2023-06-03] MEDS ORDERED: MILKSUS7 PO (20:25)
[2023-06-03] MEDS ORDERED: HOME MED LIST COMPLETE! XX SCH (20:25)
[2023-06-03] MEDS ORDERED: APAP325T4 PO (20:25)
[2023-06-03] MEDS ORDERED: BISA10SU27 PR (20:25)
[2023-06-03] MEDS ORDERED: FLEEENE12 PR (20:25)
[2023-06-03] MEDS ORDERED: SILV1CRE60 TOP (20:25)
[2023-06-03 20:30] VITALS: BP 166/92; TEMP 98.1; O2SAT 98
[2023-06-03] MEDS: INSULIN LISPRO (NovoLOG) PER UNIT SC SCH (21:00)
[2023-06-03] MEDS: CEFEPIME HCL 1 GM in D5W MINI-BAG PLUS 50 ML IV SCH (21:32)
[2023-06-03] MEDS ORDERED: MED REC CURRENTLY UNOBTAINABLE XX SCH (22:20)
[2023-06-03 23:47] VITALS: BP 130/60; TEMP 96.9; O2SAT 97
[2023-06-04 00:38] LABS: HEMATOCRIT 36.5 % (36.0-47.0); HEMOGLOBIN 11.1 g/dl (12.0-15.5)
[2023-06-04 04:00] VITALS: BP 146/85; TEMP 96.9; O2SAT 99
[2023-06-04 06:17] LABS: HEMATOCRIT 37.9 % (36.0-47.0); HEMOGLOBIN 11.4 g/dl (12.0-15.5); MEAN CORPUSCULAR HEMOGLOBIN 27.3 pg (27.0-33.0); MEAN CORPUSCULAR HGB CONC 30.1 g/dl (32.0-36.5); MEAN CORPUSCULAR VOLUME 90.7 fl (80.0-96.0); PLATELET COUNT, AUTOMATED 192 10^3/uL (150-450); RED BLOOD COUNT 4.18 10^6/uL (4.00-5.40); WHITE BLOOD COUNT 10.5 10^3/uL (4.0-10.0)
[2023-06-04 06:49] LABS: BLOOD UREA NITROGEN 27 MG/DL (9-23); CALCIUM LEVEL 9.3 MG/DL (8.3-10.6); CARBON DIOXIDE LEVEL 26 MMOL/L (20-31); CHLORIDE LEVEL 107 MMOL/L (98-107); CREATININE FOR GFR 0.68 MG/DL (0.55-1.30); GLOMERULAR FILTRATION RATE > 60.0 (>32); GLUCOSE, FASTING 165 MG/DL (74-106); MAGNESIUM LEVEL 1.8 MG/DL (1.8-2.4); POTASSIUM SERUM 4.4 MMOL/L (3.5-5.1); SODIUM LEVEL 143 MMOL/L (136-145)
[2023-06-04 08:04] LABS: INR 1.38; PROTHROMBIN TIME 16.6 SECONDS (12.5-14.5)
[2023-06-04 08:05] LABS: PARTIAL THROMBOPLASTIN TIME 30.7 SECONDS (24.8-34.2)
[2023-06-04 08:21] LABS: ALBUMIN 3.3 G/DL (3.2-5.2); ALKALINE PHOSPHATASE 79 U/L (46-116); ALT/SGPT < 9 U/L (7.0-40); AST/SGOT 14 U/L (<34); BILIRUBIN,TOTAL 1.4 MG/DL (0.3-1.2); BLOOD UREA NITROGEN 22 MG/DL (9-23); CALCIUM LEVEL 9.6 MG/DL (8.3-10.6); CARBON DIOXIDE LEVEL 27 MMOL/L (20-31); CHLORIDE LEVEL 106 MMOL/L (98-107); CREATININE FOR GFR 0.74 MG/DL (0.55-1.30); GLOMERULAR FILTRATION RATE > 60.0 (>32); GLUCOSE, FASTING 159 MG/DL (74-106); POTASSIUM SERUM 4.2 MMOL/L (3.5-5.1); SODIUM LEVEL 142 MMOL/L (136-145); TOTAL PROTEIN 6.7 G/DL (5.7-8.2)
[2023-06-04 08:22] VITALS: BP 162/83; TEMP 97; O2SAT 98
[2023-06-04] MEDS ORDERED: FLEET ENEMA PR PRN (09:15)
[2023-06-04] MEDS ORDERED: BISACODYL 10MG SUPP PR PRN (09:15)
[2023-06-04] MEDS ORDERED: MOM 30ML SUSPENSION UDC PO PRN (09:15)
[2023-06-04] MEDS: INSULIN LISPRO (NovoLOG) PER UNIT SC SCH ×4 (09:27→20:17)
[2023-06-04] MEDS: CEFEPIME HCL 1 GM in D5W MINI-BAG PLUS 50 ML IV SCH ×2 (09:28→20:18)
[2023-06-04] MEDS: METOPROLOL SUCC *XL* 25MG TAB (TopROL *XL*) PO SCH (11:23)
[2023-06-04] MEDS: FERROUS SULFATE 325MG TAB PO SCH (11:24)
[2023-06-04] MEDS: BACLOFEN 5MG PER 1/2 TABLET PO SCH (11:24)
[2023-06-04] MEDS: SILVER SULFADIAZINE 1% CR 50 GM JAR TOP SCH (11:24)
[2023-06-04] MEDS: DIGOXIN 0.125 MG TAB PO SCH (11:24)
[2023-06-04 12:00] VITALS: BP 162/90; TEMP 98.7; O2SAT 97
[2023-06-04] MEDS: ATORVASTATIN 20 MG TAB PO SCH (15:58)
[2023-06-04] MEDS: SITagliptin 50 MG TAB (JANUVIA) PO SCH (15:58)
[2023-06-04] MEDS: LEVOTHYROXINE 88MCG TABLET (0.088 MG) PO SCH (15:58)
[2023-06-04 16:00] VITALS: BP 162/80; TEMP 98.7
[2023-06-04 17:10] VITALS: BP 150/80; TEMP 98.3; O2SAT 96
[2023-06-04] MEDS: MAGNESIUM OXIDE 400MG TAB (MAG-OX) PO SCH (17:45)
[2023-06-04 19:57] VITALS: BP 152/75; TEMP 97.5; O2SAT 98
[2023-06-04] MEDS: ACETAMINOPHEN 650MG ER TAB (TYLENOL ARTHRITIS) PO SCH (20:17)
[2023-06-04] MEDS: RAMELTEON 8 MG TAB (ROZEREM) PO SCH (20:17)
[2023-06-04] MEDS: GABAPENTIN 300 MG CAP PO SCH (20:17)
[2023-06-04] MEDS: LACTIC ACID 12% LOTION 225 GM BTL TOP SCH (20:18)
[2023-06-05 04:22] VITALS: BP 160/77; TEMP 97; O2SAT 96
[2023-06-05 05:06] LABS: HEMATOCRIT 34.2 % (36.0-47.0); HEMOGLOBIN 10.2 g/dl (12.0-15.5); MEAN CORPUSCULAR HEMOGLOBIN 27.1 pg (27.0-33.0); MEAN CORPUSCULAR HGB CONC 29.8 g/dl (32.0-36.5); MEAN CORPUSCULAR VOLUME 90.7 fl (80.0-96.0); PLATELET COUNT, AUTOMATED 203 10^3/uL (150-450); RED BLOOD COUNT 3.77 10^6/uL (4.00-5.40); WHITE BLOOD COUNT 8.1 10^3/uL (4.0-10.0)
[2023-06-05 05:29] LABS: ALBUMIN 2.7 G/DL (3.2-5.2); ALKALINE PHOSPHATASE 72 U/L (46-116); ALT/SGPT 15 U/L (7.0-40); AST/SGOT 16 U/L (<34); BILIRUBIN,TOTAL 1.3 MG/DL (0.3-1.2); BLOOD UREA NITROGEN 24 MG/DL (9-23); CALCIUM LEVEL 8.8 MG/DL (8.3-10.6); CARBON DIOXIDE LEVEL 27 MMOL/L (20-31); CHLORIDE LEVEL 108 MMOL/L (98-107); CREATININE FOR GFR 0.65 MG/DL (0.55-1.30); GLOMERULAR FILTRATION RATE > 60.0 (>32); GLUCOSE, FASTING 128 MG/DL (74-106); POTASSIUM SERUM 3.7 MMOL/L (3.5-5.1); SODIUM LEVEL 143 MMOL/L (136-145); TOTAL PROTEIN 5.7 G/DL (5.7-8.2)
[2023-06-05] MEDS: LEVOTHYROXINE 88MCG TABLET (0.088 MG) PO SCH (06:12)
[2023-06-05 07:46] VITALS: BP 170/81; TEMP 97; O2SAT 98
[2023-06-05] MEDS: INSULIN LISPRO (NovoLOG) PER UNIT SC SCH ×4 (08:30→20:06)
[2023-06-05] MEDS: BACLOFEN 5MG PER 1/2 TABLET PO SCH (08:30)
[2023-06-05] MEDS: ASPIRIN 81MG ENTERIC TABLET PO SCH (08:30)
[2023-06-05] MEDS: METOPROLOL SUCC *XL* 25MG TAB (TopROL *XL*) PO SCH (08:31)
[2023-06-05] MEDS: amLODIPine 5 MG TAB PO SCH (08:32)
[2023-06-05] MEDS: DIGOXIN 0.125 MG TAB PO SCH (08:34)
[2023-06-05] MEDS: FERROUS SULFATE 325MG TAB PO SCH (08:35)
[2023-06-05] MEDS: SILVER SULFADIAZINE 1% CR 50 GM JAR TOP SCH (08:36)
[2023-06-05 09:41] VITALS: BP 135/93; TEMP 97.9; O2SAT 89
[2023-06-05] MEDS: CEFEPIME HCL 1 GM in D5W MINI-BAG PLUS 50 ML IV SCH (10:54)
[2023-06-05] MEDS: LevoFLOXacin 500 MG TABLET PO ONE ×2 (12:58→13:06)
[2023-06-05 14:00] VITALS: BP 136/83; TEMP 98.1; O2SAT 93
[2023-06-05] MEDS: SITagliptin 50 MG TAB (JANUVIA) PO SCH (16:39)
[2023-06-05] MEDS: ATORVASTATIN 20 MG TAB PO SCH (16:39)
[2023-06-05] MEDS ORDERED: ASPI81TAEC PO (17:48)
[2023-06-05] MEDS ORDERED: LEVO1TAB38 PO (17:48)
[2023-06-05] MEDS ORDERED: SENN8.6T58 PO (17:57)
[2023-06-05] MEDS ORDERED: COLA100C5 PO (17:57)
[2023-06-05 18:00] VITALS: BP 139/71; TEMP 98.1; O2SAT 94
[2023-06-05] MEDS ORDERED: MIRALAX *UNIT DOSE* 17GM PACKET PO PRN (18:00)
[2023-06-05] MEDS: MAGNESIUM OXIDE 400MG TAB (MAG-OX) PO SCH (18:08)
[2023-06-05 20:25] VITALS: BP 146/78; TEMP 97.7; O2SAT 96
[2023-06-05] MEDS: SENNA 8.6 MG TAB (SENOKOT) PO SCH (20:26)
[2023-06-05] MEDS: RAMELTEON 8 MG TAB (ROZEREM) PO SCH (20:26)
[2023-06-05] MEDS: LACTIC ACID 12% LOTION 225 GM BTL TOP SCH (20:27)
[2023-06-05] MEDS: DOCUSATE SODIUM 100MG CAPSULE PO SCH (20:27)
[2023-06-05] MEDS: GABAPENTIN 300 MG CAP PO SCH (20:27)
[2023-06-05] MEDS: ACETAMINOPHEN 650MG ER TAB (TYLENOL ARTHRITIS) PO SCH (20:27)
[2023-06-06 00:41] VITALS: BP 151/75; TEMP 97.6; O2SAT 95
[2023-06-06] MEDS: LEVOTHYROXINE 88MCG TABLET (0.088 MG) PO SCH (05:32)
[2023-06-06] MEDS: LevoFLOXacin 250 MG TABLET PO SCH (05:32)
[2023-06-06 05:34] VITALS: BP 152/83; TEMP 97.3; O2SAT 97
[2023-06-06 07:30] LABS: ALBUMIN 2.4 G/DL (3.2-5.2); ALKALINE PHOSPHATASE 68 U/L (46-116); ALT/SGPT 24 U/L (7.0-40); AST/SGOT 21 U/L (<34); BILIRUBIN,TOTAL 0.9 MG/DL (0.3-1.2); BLOOD UREA NITROGEN 24 MG/DL (9-23); CALCIUM LEVEL 8.9 MG/DL (8.3-10.6); CARBON DIOXIDE LEVEL 28 MMOL/L (20-31); CHLORIDE LEVEL 107 MMOL/L (98-107); GLOMERULAR FILTRATION RATE > 60.0 (>32); GLUCOSE, FASTING 147 MG/DL (74-106); SODIUM LEVEL 143 MMOL/L (136-145); TOTAL PROTEIN 5.7 G/DL (5.7-8.2)
[2023-06-06] MEDS: INSULIN LISPRO (NovoLOG) PER UNIT SC SCH ×4 (07:30→21:00)
[2023-06-06] MEDS: SILVER SULFADIAZINE 1% CR 50 GM JAR TOP SCH (09:00)
[2023-06-06] MEDS: ASPIRIN 81MG ENTERIC TABLET PO SCH (09:17)
[2023-06-06] MEDS: DOCUSATE SODIUM 100MG CAPSULE PO SCH ×2 (09:17→21:07)
[2023-06-06] MEDS: FERROUS SULFATE 325MG TAB PO SCH (09:17)
[2023-06-06] MEDS: BACLOFEN 5MG PER 1/2 TABLET PO SCH (09:18)
[2023-06-06] MEDS: amLODIPine 5 MG TAB PO SCH (09:18)
[2023-06-06] MEDS: DIGOXIN 0.125 MG TAB PO SCH (09:18)
[2023-06-06] MEDS: METOPROLOL SUCC *XL* 25MG TAB (TopROL *XL*) PO SCH (09:19)
[2023-06-06 10:00] VITALS: BP 139/77; TEMP 97.7; O2SAT 97
[2023-06-06 14:00] VITALS: BP 140/76; TEMP 97.7; O2SAT 94
[2023-06-06] MEDS: MAGNESIUM OXIDE 400MG TAB (MAG-OX) PO SCH (17:30)
[2023-06-06] MEDS: ATORVASTATIN 20 MG TAB PO SCH (17:30)
[2023-06-06] MEDS: SITagliptin 50 MG TAB (JANUVIA) PO SCH (17:31)
[2023-06-06 18:00] VITALS: BP 160/82; TEMP 98.1; O2SAT 94
[2023-06-06 20:51] VITALS: BP 164/84; TEMP 98.8; O2SAT 93
[2023-06-06] MEDS: RAMELTEON 8 MG TAB (ROZEREM) PO SCH (21:07)
[2023-06-06] MEDS: GABAPENTIN 300 MG CAP PO SCH (21:07)
[2023-06-06] MEDS: SENNA 8.6 MG TAB (SENOKOT) PO SCH (21:07)
[2023-06-06] MEDS: LACTIC ACID 12% LOTION 225 GM BTL TOP SCH (21:07)
[2023-06-06] MEDS: ACETAMINOPHEN 650MG ER TAB (TYLENOL ARTHRITIS) PO SCH (21:07)
[2023-06-07 02:14] VITALS: BP 117/69; TEMP 97.9; O2SAT 94
[2023-06-07] MEDS: LevoFLOXacin 250 MG TABLET PO SCH (05:51)
[2023-06-07] MEDS: LEVOTHYROXINE 88MCG TABLET (0.088 MG) PO SCH (05:51)
[2023-06-07 06:13] VITALS: BP 150/90; TEMP 98.6; O2SAT 97
[2023-06-07 06:24] LABS: HEMATOCRIT 32.9 % (36.0-47.0); HEMOGLOBIN 9.9 g/dl (12.0-15.5); MEAN CORPUSCULAR HEMOGLOBIN 26.8 pg (27.0-33.0); MEAN CORPUSCULAR HGB CONC 30.1 g/dl (32.0-36.5); MEAN CORPUSCULAR VOLUME 88.9 fl (80.0-96.0); PLATELET COUNT, AUTOMATED 204 10^3/uL (150-450); WHITE BLOOD COUNT 9.3 10^3/uL (4.0-10.0)
[2023-06-07 06:51] LABS: ALBUMIN 2.4 G/DL (3.2-5.2); ALKALINE PHOSPHATASE 72 U/L (46-116); ALT/SGPT 25 U/L (7.0-40); AST/SGOT 20 U/L (<34); BILIRUBIN,TOTAL 0.8 MG/DL (0.3-1.2); BLOOD UREA NITROGEN 20 MG/DL (9-23); CALCIUM LEVEL 8.7 MG/DL (8.3-10.6); CARBON DIOXIDE LEVEL 28 MMOL/L (20-31); CHLORIDE LEVEL 104 MMOL/L (98-107); CREATININE FOR GFR 0.61 MG/DL (0.55-1.30); GLOMERULAR FILTRATION RATE > 60.0 (>32); GLUCOSE, FASTING 146 MG/DL (74-106); POTASSIUM SERUM 3.9 MMOL/L (3.5-5.1); SODIUM LEVEL 139 MMOL/L (136-145); TOTAL PROTEIN 5.6 G/DL (5.7-8.2)
[2023-06-07] MEDS: FERROUS SULFATE 325MG TAB PO SCH (08:24)
[2023-06-07] MEDS: DOCUSATE SODIUM 100MG CAPSULE PO SCH (08:24)
[2023-06-07] MEDS: ASPIRIN 81MG ENTERIC TABLET PO SCH (08:24)
[2023-06-07] MEDS: BACLOFEN 5MG PER 1/2 TABLET PO SCH (08:24)
[2023-06-07] MEDS: INSULIN LISPRO (NovoLOG) PER UNIT SC SCH ×2 (08:24→13:19)
[2023-06-07 08:26] VITALS: BP 153/90
[2023-06-07] MEDS: DIGOXIN 0.125 MG TAB PO SCH (08:26)
[2023-06-07] MEDS: amLODIPine 5 MG TAB PO SCH (08:26)
[2023-06-07] MEDS: METOPROLOL SUCC *XL* 25MG TAB (TopROL *XL*) PO SCH (08:26)
[2023-06-07] MEDS: SILVER SULFADIAZINE 1% CR 50 GM JAR TOP SCH (08:27)
[2023-06-07] MEDS ORDERED: AMLO1TAB24 PO (09:20)
== END 2023-06-07 13:45 | DRG 699 ==
LOC: M ED 15:31 → EDBD 15:31 → M ED INP 19:15 → ENRESERV 19:56 → M PCU 20:24 → M MSPAV 06-05 09:31
PROVIDERS: ADMIT Family Medicine; ATTEND Internal Medicine Nephrology
DX: T83.511A Infection and inflammatory reaction due to indwelling urethral catheter, initial encounter (principal); I50.32 Chronic diastolic (congestive) heart failure; I69.351 Hemiplegia and hemiparesis following cerebral infarction affecting right dominant side; I48.20 Chronic atrial fibrillation, unspecified; D68.32 Hemorrhagic disorder due to extrinsic circulating anticoagulants; I16.0 Hypertensive urgency; R31.0 Gross hematuria; I11.0 Hypertensive heart disease with heart failure; I69.391 Dysphagia following cerebral infarction; E11.65 Type 2 diabetes mellitus with hyperglycemia; I25.10 Atherosclerotic heart disease of native coronary artery without angina pectoris; E83.42 Hypomagnesemia; E03.9 Hypothyroidism, unspecified; R91.1 Solitary pulmonary nodule; E78.5 Hyperlipidemia, unspecified; D64.9 Anemia, unspecified; Z79.899 Other long term (current) drug therapy; I69.361 Other paralytic syndrome following cerebral infarction affecting right dominant side; Z79.01 Long term (current) use of anticoagulants; I71.20 Thoracic aortic aneurysm, without rupture, unspecified; N39.0 Urinary tract infection, site not specified; Y84.6 Urinary catheterization as the cause of abnormal reaction of the patient, or of later complication, without mention of misadventure at the time of the procedure

== ENCOUNTER → 2023-06-03 | Outpatient (REF) ==
[~2023-06-03] MED LIST changes: +ASPI81TAEC PO; +COLA100C5 PO; +SENN8.6T58 PO
[2023-06-03 09:49] LABS: HEMATOCRIT 44.7 % (36.0-47.0); HEMOGLOBIN 13.6 g/dl (12.0-15.5); MEAN CORPUSCULAR HEMOGLOBIN 27.7 pg (27.0-33.0); MEAN CORPUSCULAR HGB CONC 30.4 g/dl (32.0-36.5); PLATELET COUNT, AUTOMATED 253 10^3/uL (150-450); RED BLOOD COUNT 4.91 10^6/uL (4.00-5.40); WHITE BLOOD COUNT 12.6 10^3/uL (4.0-10.0)
[2023-06-03 10:29] LABS: BLOOD UREA NITROGEN 30 MG/DL (9-23); CALCIUM LEVEL 9.9 MG/DL (8.3-10.6); CARBON DIOXIDE LEVEL 24 MMOL/L (20-31); CHLORIDE LEVEL 105 MMOL/L (98-107); CREATININE FOR GFR 0.83 MG/DL (0.55-1.30); GLOMERULAR FILTRATION RATE > 60.0 (>32); GLUCOSE, FASTING 219 MG/DL (74-106); POTASSIUM SERUM 4.5 MMOL/L (3.5-5.1); SODIUM LEVEL 139 MMOL/L (136-145)
== END ==
PROVIDERS: ATTEND Physician Assistant
DX: R31.0 Gross hematuria (principal)

== ENCOUNTER → 2023-06-06 | Outpatient (REF) ==
[~2023-06-06] MED LIST changes: +APAP325T4 PO; +ASPI81TAEC PO; +BACL10TA2 PO; +BISA10SU27 PR; +COLA100C5 PO; +ENSULIQ51 PO; +FERR1TAB8 PO; +FLEEENE12 PR; +MILKSUS7 PO; +SENN8.6T58 PO; +SILV1CRE60 TOP
== END ==
PROVIDERS: ATTEND Physician Assistant
DX: R31.9 Hematuria, unspecified (principal); Z53.8 Procedure and treatment not carried out for other reasons

== ENCOUNTER → 2023-06-08 | Outpatient (REF) ==
[2023-06-08 11:02] LABS: HEMATOCRIT 36.8 % (36.0-47.0); HEMOGLOBIN 11.1 g/dl (12.0-15.5); MEAN CORPUSCULAR HEMOGLOBIN 27.3 pg (27.0-33.0); MEAN CORPUSCULAR HGB CONC 30.2 g/dl (32.0-36.5); MEAN CORPUSCULAR VOLUME 90.4 fl (80.0-96.0); PLATELET COUNT, AUTOMATED 235 10^3/uL (150-450); RED BLOOD COUNT 4.07 10^6/uL (4.00-5.40); WHITE BLOOD COUNT 9.4 10^3/uL (4.0-10.0)
[2023-06-08 11:40] LABS: THYROID STIMULATING HORMONE 4.688 uIU/ML (0.55-4.78)
[2023-06-08 11:44] LABS: BLOOD UREA NITROGEN 18 MG/DL (9-23); CALCIUM LEVEL 9.1 MG/DL (8.3-10.6); CARBON DIOXIDE LEVEL 28 MMOL/L (20-31); CHLORIDE LEVEL 103 MMOL/L (98-107); CREATININE FOR GFR 0.61 MG/DL (0.55-1.30); DIGOXIN LEVEL 1.9 NG/ML (0.8-2.0); GLOMERULAR FILTRATION RATE > 60.0 (>32); GLUCOSE, FASTING 153 MG/DL (74-106); SODIUM LEVEL 140 MMOL/L (136-145)
== END ==
PROVIDERS: ATTEND Physician Assistant
DX: I48.91 Unspecified atrial fibrillation (principal)

== ENCOUNTER → 2023-06-15 | Outpatient (REF) ==
[2023-06-15 11:11] LABS: HEMATOCRIT 37.6 % (36.0-47.0); HEMOGLOBIN 11.4 g/dl (12.0-15.5); MEAN CORPUSCULAR HEMOGLOBIN 26.9 pg (27.0-33.0); MEAN CORPUSCULAR HGB CONC 30.3 g/dl (32.0-36.5); MEAN CORPUSCULAR VOLUME 88.7 fl (80.0-96.0); PLATELET COUNT, AUTOMATED 248 10^3/uL (150-450); RED BLOOD COUNT 4.24 10^6/uL (4.00-5.40); WHITE BLOOD COUNT 7.6 10^3/uL (4.0-10.0)
[2023-06-15 11:57] LABS: BLOOD UREA NITROGEN 14 MG/DL (9-23); CALCIUM LEVEL 9.5 MG/DL (8.3-10.6); CARBON DIOXIDE LEVEL 30 MMOL/L (20-31); CHLORIDE LEVEL 101 MMOL/L (98-107); CREATININE FOR GFR 0.58 MG/DL (0.55-1.30); GLOMERULAR FILTRATION RATE > 60.0 (>32); GLUCOSE, FASTING 109 MG/DL (74-106); POTASSIUM SERUM 4.1 MMOL/L (3.5-5.1); SODIUM LEVEL 140 MMOL/L (136-145)
== END ==
PROVIDERS: ATTEND Physician Assistant
DX: I48.91 Unspecified atrial fibrillation (principal)

== ENCOUNTER → 2023-08-01 | Outpatient (REF) | payer MEDICARE, OTHER ==
[~2023-08-01] MED LIST changes: -CEFD300C41 PO; +CEFD300C42 PO
== END ==
LOC: M LAB REF 12:25
PROVIDERS: ATTEND Internal Medicine
DX: A41.9 Sepsis, unspecified organism (principal); R65.21 Severe sepsis with septic shock

== ENCOUNTER → 2023-09-02 | Outpatient (REF) ==
[~2023-09-02] MED LIST changes: +ACET650T61 PEG; +AMLO10TA PEG; +ASPI-161 PEG; +ASPI-161 PO; +ATOR1TAB21 PEG; +BACL5TAB2 PEG; +BACL5TAB2 PO; +CEFD1CAP9 PO; -CEFD300C42 PO; +DIGO0.123 PEG; +FERR1TAB8 PEG; +FIRV25SO PEG; +GABA-282 PEG; +INSUHUMDS SC; +LEVO88TA3 PEG; +MAGN400T2 PEG; +MELA3TAB30 PEG; +METO1TAB87 PEG; +PHOS1TAB5 PEG; +THERTAB21 PEG; +THERTAB21 PO
[2023-09-02 10:31] LABS: ALKALINE PHOSPHATASE 80 U/L (46-116); ALT/SGPT 17 U/L (7.0-40); AST/SGOT 19 U/L (<34); BILIRUBIN,TOTAL 0.6 MG/DL (0.3-1.2); BLOOD UREA NITROGEN 12 MG/DL (9-23); CALCIUM LEVEL 8.2 MG/DL (8.3-10.6); CARBON DIOXIDE LEVEL 32 MMOL/L (20-31); CHLORIDE LEVEL 98 MMOL/L (98-107); CREATININE FOR GFR 0.33 MG/DL (0.55-1.30); GLOMERULAR FILTRATION RATE > 60.0 (>32); GLUCOSE, FASTING 86 MG/DL (74-106); POTASSIUM SERUM 4.3 MMOL/L (3.5-5.1); SODIUM LEVEL 134 MMOL/L (136-145); TOTAL PROTEIN 5.4 G/DL (5.7-8.2)
== END ==
PROVIDERS: ATTEND Internal Medicine
DX: E87.8 Other disorders of electrolyte and fluid balance, not elsewhere classified (principal)

== ENCOUNTER → 2023-09-03 | Outpatient (REF) | PROVIDERS: ATTEND Internal Medicine | DX: E87.8 Other disorders of electrolyte and fluid balance, not elsewhere classified (principal); Z53.8 Procedure and treatment not carried out for other reasons ==

== ENCOUNTER → 2023-09-04 | Outpatient (REF) ==
[2023-09-04 12:04] LABS: ALBUMIN 2.4 G/DL (3.2-5.2); ALKALINE PHOSPHATASE 97 U/L (46-116); ALT/SGPT 23 U/L (7.0-40); AST/SGOT 38 U/L (<34); BILIRUBIN,TOTAL 0.9 MG/DL (0.3-1.2); BLOOD UREA NITROGEN 14 MG/DL (9-23); CALCIUM LEVEL 8.9 MG/DL (8.3-10.6); CARBON DIOXIDE LEVEL 28 MMOL/L (20-31); CHLORIDE LEVEL 95 MMOL/L (98-107); CREATININE FOR GFR 0.32 MG/DL (0.55-1.30); GLOMERULAR FILTRATION RATE > 60.0 (>32); GLUCOSE, FASTING 137 MG/DL (74-106); POTASSIUM SERUM 4.8 MMOL/L (3.5-5.1); SODIUM LEVEL 132 MMOL/L (136-145); TOTAL PROTEIN 6.5 G/DL (5.7-8.2)
== END ==
PROVIDERS: ATTEND Internal Medicine
DX: E87.8 Other disorders of electrolyte and fluid balance, not elsewhere classified (principal)

== ENCOUNTER → 2023-09-07 | Outpatient (REF) ==
[2023-09-07 11:49] LABS: HEMATOCRIT 30.9 % (36.0-47.0); MEAN CORPUSCULAR HEMOGLOBIN 30.8 pg (27.0-33.0); MEAN CORPUSCULAR HGB CONC 32.4 g/dl (32.0-36.5); MEAN CORPUSCULAR VOLUME 95.1 fl (80.0-96.0); PLATELET COUNT, AUTOMATED 288 10^3/uL (150-450); RED BLOOD COUNT 3.25 10^6/uL (4.00-5.40); WHITE BLOOD COUNT 9.8 10^3/uL (4.0-10.0)
[2023-09-07 12:21] LABS: BLOOD UREA NITROGEN 13 MG/DL (9-23); CALCIUM LEVEL 8.9 MG/DL (8.3-10.6); CARBON DIOXIDE LEVEL 30 MMOL/L (20-31); CHLORIDE LEVEL 98 MMOL/L (98-107); CREATININE FOR GFR 0.35 MG/DL (0.55-1.30); GLOMERULAR FILTRATION RATE > 60.0 (>32); GLUCOSE, FASTING 229 MG/DL (74-106); SODIUM LEVEL 134 MMOL/L (136-145)
== END ==
PROVIDERS: ATTEND Physician Assistant
DX: I48.91 Unspecified atrial fibrillation (principal)

== ENCOUNTER 2023-09-14 12:30 | Inpatient (IN) | payer MEDICARE, OTHER ==
[2023-09-14 13:25] LABS: BASO % 0.3 % (0.0-1.0); EOS % 0.3 % (0.0-3.0); HEMATOCRIT 37.6 % (36.0-47.0); HEMOGLOBIN 11.3 g/dl (12.0-15.5); LYMPH # 1.6 10^3/uL (1.5-5.0); LYMPH % 15.7 % (24.0-44.0); MEAN CORPUSCULAR HEMOGLOBIN 30.1 pg (27.0-33.0); MEAN CORPUSCULAR HGB CONC 30.1 g/dl (32.0-36.5); MEAN CORPUSCULAR VOLUME 100.3 fl (80.0-96.0); MONO # 0.8 10^3/uL (0.0-0.8); MONO % 7.9 % (2.0-8.0); NEUTROPHILS # 7.8 10^3/uL (1.5-8.5); NEUTROPHILS % 75.3 % (36.0-66.0); PLATELET COUNT, AUTOMATED 486 10^3/uL (150-450); RED BLOOD COUNT 3.75 10^6/uL (4.00-5.40); WHITE BLOOD COUNT 10.3 10^3/uL (4.0-10.0)
[2023-09-14] MEDS ORDERED: VANCOMYCIN HCL 750 MG, VIAL MATE ADAPTER 1 EACH in D5W 250 ML IV SCH (13:40)
[2023-09-14] MEDS ORDERED: NS 1,040 ML in IV 1 EA IV ONE (13:40)
[2023-09-14 13:53] LABS: ALBUMIN 2.3 G/DL (3.2-5.2); ALKALINE PHOSPHATASE 94 U/L (46-116); ALT/SGPT 69 U/L (7.0-40); AST/SGOT 52 U/L (<34); BILIRUBIN,TOTAL 0.7 MG/DL (0.3-1.2); BLOOD UREA NITROGEN 58 MG/DL (9-23); CALCIUM LEVEL 9.5 MG/DL (8.3-10.6); CARBON DIOXIDE LEVEL 32 MMOL/L (20-31); CHLORIDE LEVEL 109 MMOL/L (98-107); CREATININE FOR GFR 0.44 MG/DL (0.55-1.30); GLOMERULAR FILTRATION RATE > 60.0 (>32); GLUCOSE, FASTING 311 MG/DL (74-106); POTASSIUM SERUM 4.6 MMOL/L (3.5-5.1); SODIUM LEVEL 147 MMOL/L (136-145); TOTAL PROTEIN 6.9 G/DL (5.7-8.2)
[2023-09-14] MEDS ORDERED: ACETAMINOPHEN *IV* 1,000 MG in IV 1 EA IV ONE (14:05)
[2023-09-14 14:07] LABS: INR 1.21; PROTHROMBIN TIME 14.9 SECONDS (12.5-14.5)
[2023-09-14 14:08] LABS: PARTIAL THROMBOPLASTIN TIME 28.3 SECONDS (24.8-34.2)
[2023-09-14 14:12] LABS: ABG BASE EXCESS 8.7 (-2.0-2.0); ABG HCO3 31.4 MMOL/L (22.0-26.0); ABG O2 SATURATION 98.6 % (95.0-99.0); ABG PARTIAL PRESSURE CO2 36.3 mmHg (35.0-45.0); ABG STANDARD HCO3 32.5 MMOL/L. (22.0-26.0); ABG TOTAL CO2 32.5 MMOL/L (23.0-31.0); ABG pH (ARTERIAL) 7.555 UNITS (7.350-7.450)
[2023-09-14 14:15] LABS: AMYLASE 38 U/L (30-118); BILIRUBIN,DIRECT 0.3 MG/DL (<0.4)
[2023-09-14 14:27] LABS: PROCALCITONIN 0.16 ng/ml
[2023-09-14 14:30] LABS: APPEARANCE, URINE CLOUDY (CLEAR); BACTERIA, URINE AUTO 1+ (NEGATIVE); BILIRUBIN, URINE AUTO NEGATIVE (NEGATIVE); BLOOD, URINE BLOOD NEGATIVE (NEGATIVE); COLOR, URINE YELLOW (YELLOW); GLUCOSE, URINE (UA) AUTO 2+ mg/dL (NEGATIVE); KETONE, URINE AUTO NEGATIVE (NEGATIVE); LEUKOCYTE ESTERASE, URINE AUTO 3+ (NEGATIVE); NITRITE, URINE AUTO NEGATIVE (NEGATIVE); PROTEIN, URINE AUTO 2+ mg/dL (NEGATIVE); RBC, URINE AUTO 34 /HPF (0-3); SPECIFIC GRAVITY URINE AUTO 1.019 (1.002-1.035); SQUAMOUS EPITHELIAL CELL UR AU 0 /HPF (0-6); UROBILINOGEN, URINE AUTO 0.2 mg/dL (0.0-2.0); WBC, URINE AUTO TNTC /HPF (0-3)
[2023-09-14] MEDS ORDERED: VANCOMYCIN HCL 750 MG, VIAL MATE ADAPTER 1 EACH in D5W 250 ML IV ONE (14:30)
[2023-09-14] MEDS ORDERED: MED REC IN PROGRESS XX SCH (15:45)
[2023-09-14] MEDS ORDERED: cefTRIAXone SOD 1 GM in D5W MINI-BAG PLUS 50 ML IV ONE (15:55)
[2023-09-14] MEDS ORDERED: CEFTAROLINE FOSAMIL 600 MG in D5W MINI-BAG PLUS 50 ML IV SCH (16:20)
[2023-09-14] MEDS ORDERED: GLUCAGON INJ 1MG VIAL SC PRN (16:25)
[2023-09-14] MEDS ORDERED: GLUCOSE 4GM CHEW TABLET PO PRN (16:25)
[2023-09-14] MEDS ORDERED: DEXTROSE 50% 50ML SYRINGE IV PRN (16:25)
[2023-09-14 16:29] LABS: RSV AMPLIFICATION NEGATIVE (NEGATIVE)
[2023-09-14] MEDS ORDERED: HOME MED LIST COMPLETE! XX SCH (18:00)
[2023-09-14 18:25] VITALS: BP 130/85; TEMP 97.7; O2SAT 97
[2023-09-14] MEDS: D5W/0.45% SODIUM CHLORIDE 1,000 ML IV SCH (20:10)
[2023-09-14] MEDS: ACETAMINOPHEN 325MG/10.15ML UDC GT PRN (20:43)
[2023-09-14] MEDS: CEFTAROLINE FOSAMIL 400 MG in D5W MINI-BAG PLUS 50 ML IV SCH (20:44)
[2023-09-14] MEDS: INSULIN LISPRO (NovoLOG) PER UNIT SC SCH (20:44)
[2023-09-14] MEDS: ENOXAPARIN 30MG/0.3ML SYRINGE (J1650 PER 10MG) SC SCH (20:44)
[2023-09-14 22:18] VITALS: BP 130/75; TEMP 97.6; O2SAT 96
[2023-09-15] MEDS: INSULIN LISPRO (NovoLOG) PER UNIT SC SCH ×4 (00:26→18:00)
[2023-09-15 06:09] VITALS: BP 144/95; TEMP 97.9; O2SAT 98
[2023-09-15 06:09] LABS: BASO % 0.4 % (0.0-1.0); EOS # 0.1 10^3/uL (0.0-0.5); EOS % 0.8 % (0.0-3.0); HEMATOCRIT 32.1 % (36.0-47.0); HEMOGLOBIN 9.9 g/dl (12.0-15.5); LYMPH # 1.5 10^3/uL (1.5-5.0); LYMPH % 14.8 % (24.0-44.0); MEAN CORPUSCULAR HEMOGLOBIN 30.4 pg (27.0-33.0); MEAN CORPUSCULAR HGB CONC 30.8 g/dl (32.0-36.5); MEAN CORPUSCULAR VOLUME 98.5 fl (80.0-96.0); MONO % 9.8 % (2.0-8.0); NEUTROPHILS # 7.4 10^3/uL (1.5-8.5); NEUTROPHILS % 73.8 % (36.0-66.0); PLATELET COUNT, AUTOMATED 442 10^3/uL (150-450); RED BLOOD COUNT 3.26 10^6/uL (4.00-5.40)
[2023-09-15] MEDS: CEFTAROLINE FOSAMIL 400 MG in D5W MINI-BAG PLUS 50 ML IV SCH ×2 (06:28→18:12)
[2023-09-15 06:33] LABS: BLOOD UREA NITROGEN 52 MG/DL (9-23); CALCIUM LEVEL 9.1 MG/DL (8.3-10.6); CARBON DIOXIDE LEVEL 30 MMOL/L (20-31); CHLORIDE LEVEL 113 MMOL/L (98-107); CREATININE FOR GFR 0.36 MG/DL (0.55-1.30); GLOMERULAR FILTRATION RATE > 60.0 (>32); GLUCOSE, FASTING 306 MG/DL (74-106); POTASSIUM SERUM 3.7 MMOL/L (3.5-5.1); SODIUM LEVEL 149 MMOL/L (136-145)
[2023-09-15] MEDS: D5W/0.45% SODIUM CHLORIDE 1,000 ML IV SCH (06:47)
[2023-09-15] MEDS: ACETAMINOPHEN 325MG/10.15ML UDC GT PRN ×3 (09:46→21:44)
[2023-09-15] MEDS: LEVEMIR (INSULIN DETEMIR) 1 UNITS/0.01ML SC SCH (09:47)
[2023-09-15 14:00] VITALS: BP 141/77; TEMP 97.7; O2SAT 98
[2023-09-15] MEDS: VANCOMYCIN ORAL SOL 250MG/5ML ORAL SYRINGE PO SCH (15:39)
[2023-09-15] MEDS: ENOXAPARIN 30MG/0.3ML SYRINGE (J1650 PER 10MG) SC SCH (21:12)
[2023-09-15 22:00] VITALS: BP 142/82; TEMP 97.2; O2SAT 99
[2023-09-16] MEDS: INSULIN LISPRO (NovoLOG) PER UNIT SC SCH ×5 (00:50→23:28)
[2023-09-16] MEDS: CEFTAROLINE FOSAMIL 400 MG in D5W MINI-BAG PLUS 50 ML IV SCH (05:53)
[2023-09-16 06:04] VITALS: BP 140/110; TEMP 97.2; O2SAT 99
[2023-09-16 06:14] LABS: BASO % 0.3 % (0.0-1.0); EOS # 0.2 10^3/uL (0.0-0.5); EOS % 2.1 % (0.0-3.0); HEMATOCRIT 30.5 % (36.0-47.0); HEMOGLOBIN 9.4 g/dl (12.0-15.5); LYMPH # 1.4 10^3/uL (1.5-5.0); LYMPH % 14.3 % (24.0-44.0); MEAN CORPUSCULAR HGB CONC 30.8 g/dl (32.0-36.5); MEAN CORPUSCULAR VOLUME 97.4 fl (80.0-96.0); MONO # 0.8 10^3/uL (0.0-0.8); MONO % 8.4 % (2.0-8.0); NEUTROPHILS # 7.4 10^3/uL (1.5-8.5); NEUTROPHILS % 73.8 % (36.0-66.0); PLATELET COUNT, AUTOMATED 431 10^3/uL (150-450); RED BLOOD COUNT 3.13 10^6/uL (4.00-5.40)
[2023-09-16 06:28] LABS: BLOOD UREA NITROGEN 30 MG/DL (9-23); CALCIUM LEVEL 8.9 MG/DL (8.3-10.6); CARBON DIOXIDE LEVEL 28 MMOL/L (20-31); CHLORIDE LEVEL 109 MMOL/L (98-107); CREATININE FOR GFR 0.33 MG/DL (0.55-1.30); GLOMERULAR FILTRATION RATE > 60.0 (>32); GLUCOSE, FASTING 62 MG/DL (74-106); SODIUM LEVEL 145 MMOL/L (136-145)
[2023-09-16] MEDS: VANCOMYCIN ORAL SOL 250MG/5ML ORAL SYRINGE PO SCH (07:44)
[2023-09-16] MEDS: LEVEMIR (INSULIN DETEMIR) 1 UNITS/0.01ML SC SCH (07:44)
[2023-09-16] MEDS: SANTYL OINT 30GM TOP SCH (09:00)
[2023-09-16 10:16] VITALS: BP 147/100; TEMP 97.7
[2023-09-16 11:26] LABS: PROCALCITONIN 0.14 ng/ml
[2023-09-16] MEDS: DIGOXIN 0.125 MG TAB PEG SCH (13:29)
[2023-09-16] MEDS: LEVOTHYROXINE 88MCG TABLET (0.088 MG) PEG SCH (13:29)
[2023-09-16] MEDS: ASPIRIN 81MG CHEW TABLET GT SCH (13:29)
[2023-09-16] MEDS: METOPROLOL TART 25 MG TABLET PEG SCH ×3 (13:30→23:29)
[2023-09-16 14:00] VITALS: BP 144/84; TEMP 98.8; O2SAT 98
[2023-09-16] MEDS ORDERED: GENTAMICIN 160 MG in D5W 50 ML IV ONE (14:00)
[2023-09-16] MEDS: ACETAMINOPHEN 325MG/10.15ML UDC GT PRN (14:26)
[2023-09-16] MEDS: GABAPENTIN 300 MG CAP PEG SCH (20:25)
[2023-09-16] MEDS: ENOXAPARIN 30MG/0.3ML SYRINGE (J1650 PER 10MG) SC SCH (20:25)
[2023-09-16 22:02] VITALS: BP 132/76; TEMP 97.7; O2SAT 97
[2023-09-17] MEDS: LEVOTHYROXINE 88MCG TABLET (0.088 MG) PEG SCH (05:18)
[2023-09-17] MEDS: METOPROLOL TART 25 MG TABLET PEG SCH ×3 (05:18→18:06)
[2023-09-17] MEDS: INSULIN LISPRO (NovoLOG) PER UNIT SC SCH ×3 (05:19→17:40)
[2023-09-17 06:38] VITALS: BP 150/89; TEMP 97.6; O2SAT 97
[2023-09-17 07:17] LABS: BASO % 0.4 % (0.0-1.0); EOS # 0.2 10^3/uL (0.0-0.5); EOS % 2.7 % (0.0-3.0); HEMATOCRIT 26.8 % (36.0-47.0); HEMOGLOBIN 8.4 g/dl (12.0-15.5); LYMPH # 1.6 10^3/uL (1.5-5.0); LYMPH % 19.2 % (24.0-44.0); MEAN CORPUSCULAR HEMOGLOBIN 30.2 pg (27.0-33.0); MEAN CORPUSCULAR HGB CONC 31.3 g/dl (32.0-36.5); MEAN CORPUSCULAR VOLUME 96.4 fl (80.0-96.0); MONO # 0.7 10^3/uL (0.0-0.8); MONO % 8.6 % (2.0-8.0); NEUTROPHILS # 5.5 10^3/uL (1.5-8.5); NEUTROPHILS % 68.2 % (36.0-66.0); PLATELET COUNT, AUTOMATED 380 10^3/uL (150-450); RED BLOOD COUNT 2.78 10^6/uL (4.00-5.40); WHITE BLOOD COUNT 8.1 10^3/uL (4.0-10.0)
[2023-09-17] MEDS: DIGOXIN 0.125 MG TAB PEG SCH (08:13)
[2023-09-17] MEDS: VANCOMYCIN ORAL SOL 250MG/5ML ORAL SYRINGE PO SCH (08:13)
[2023-09-17] MEDS: ASPIRIN 81MG CHEW TABLET GT SCH (08:13)
[2023-09-17] MEDS: SANTYL OINT 30GM TOP SCH (08:14)
[2023-09-17 08:23] LABS: BLOOD UREA NITROGEN 28 MG/DL (9-23); CALCIUM LEVEL 8.4 MG/DL (8.3-10.6); CHLORIDE LEVEL 104 MMOL/L (98-107); CREATININE FOR GFR 0.36 MG/DL (0.55-1.30); GLOMERULAR FILTRATION RATE > 60.0 (>32); GLUCOSE, FASTING 134 MG/DL (74-106); POTASSIUM SERUM 4.4 MMOL/L (3.5-5.1); SODIUM LEVEL 138 MMOL/L (136-145)
[2023-09-17 08:51] LABS: CARBON DIOXIDE LEVEL 26 MMOL/L (20-31)
[2023-09-17] MEDS ORDERED: LEVEMIR (INSULIN DETEMIR) 1 UNITS/0.01ML SC SCH (09:00)
[2023-09-17 10:16] LABS: HEMOGLOBIN A1c 5.7 % (4.0-6.0)
[2023-09-17] MEDS: ACETAMINOPHEN 325MG/10.15ML UDC GT PRN ×2 (12:30→20:16)
[2023-09-17] MEDS: GABAPENTIN 300 MG CAP PEG SCH (20:15)
[2023-09-17] MEDS: ENOXAPARIN 30MG/0.3ML SYRINGE (J1650 PER 10MG) SC SCH (20:16)
[2023-09-18] MEDS: METOPROLOL TART 25 MG TABLET PEG SCH ×4 (00:46→17:03)
[2023-09-18] MEDS: INSULIN LISPRO (NovoLOG) PER UNIT SC SCH ×2 (00:49→06:00)
[2023-09-18 06:00] VITALS: BP 153/82; TEMP 97.9; O2SAT 96
[2023-09-18] MEDS: LEVOTHYROXINE 88MCG TABLET (0.088 MG) PEG SCH (06:13)
[2023-09-18 07:19] LABS: BASO % 0.4 % (0.0-1.0); EOS # 0.1 10^3/uL (0.0-0.5); HEMATOCRIT 28.1 % (36.0-47.0); HEMOGLOBIN 9.1 g/dl (12.0-15.5); LYMPH # 1.5 10^3/uL (1.5-5.0); MEAN CORPUSCULAR HGB CONC 32.4 g/dl (32.0-36.5); MEAN CORPUSCULAR VOLUME 95.6 fl (80.0-96.0); MONO # 0.7 10^3/uL (0.0-0.8); NEUTROPHILS # 6.8 10^3/uL (1.5-8.5); NEUTROPHILS % 73.4 % (36.0-66.0); PLATELET COUNT, AUTOMATED 399 10^3/uL (150-450); RED BLOOD COUNT 2.94 10^6/uL (4.00-5.40); WHITE BLOOD COUNT 9.3 10^3/uL (4.0-10.0)
[2023-09-18] MEDS: DIGOXIN 0.125 MG TAB PEG SCH (07:36)
[2023-09-18] MEDS: ASPIRIN 81MG CHEW TABLET GT SCH (07:36)
[2023-09-18] MEDS: SANTYL OINT 30GM TOP SCH (07:37)
[2023-09-18] MEDS: ACETAMINOPHEN 325MG/10.15ML UDC GT PRN ×3 (07:37→22:00)
[2023-09-18] MEDS: VANCOMYCIN ORAL SOL 250MG/5ML ORAL SYRINGE PO SCH (07:37)
[2023-09-18 07:43] LABS: BLOOD UREA NITROGEN 30 MG/DL (9-23); CALCIUM LEVEL 8.2 MG/DL (8.3-10.6); CARBON DIOXIDE LEVEL 27 MMOL/L (20-31); CHLORIDE LEVEL 101 MMOL/L (98-107); CREATININE FOR GFR 0.34 MG/DL (0.55-1.30); GLOMERULAR FILTRATION RATE > 60.0 (>32); GLUCOSE, FASTING 170 MG/DL (74-106); POTASSIUM SERUM 4.5 MMOL/L (3.5-5.1); SODIUM LEVEL 133 MMOL/L (136-145)
[2023-09-18] MEDS: GABAPENTIN 300 MG CAP PEG SCH (21:59)
[2023-09-18] MEDS: ENOXAPARIN 30MG/0.3ML SYRINGE (J1650 PER 10MG) SC SCH (21:59)
[2023-09-19 05:54] VITALS: BP 144/84; TEMP 97.7; O2SAT 99
[2023-09-19] MEDS: METOPROLOL TART 25 MG TABLET PEG SCH ×4 (05:59→17:44)
[2023-09-19] MEDS: LEVOTHYROXINE 88MCG TABLET (0.088 MG) PEG SCH (05:59)
[2023-09-19 06:49] LABS: BASO % 0.3 % (0.0-1.0); EOS # 0.1 10^3/uL (0.0-0.5); EOS % 0.9 % (0.0-3.0); HEMATOCRIT 28.3 % (36.0-47.0); LYMPH # 1.9 10^3/uL (1.5-5.0); MEAN CORPUSCULAR HEMOGLOBIN 30.5 pg (27.0-33.0); MEAN CORPUSCULAR HGB CONC 31.8 g/dl (32.0-36.5); MEAN CORPUSCULAR VOLUME 95.9 fl (80.0-96.0); MONO # 0.7 10^3/uL (0.0-0.8); MONO % 8.1 % (2.0-8.0); NEUTROPHILS # 5.9 10^3/uL (1.5-8.5); NEUTROPHILS % 67.6 % (36.0-66.0); PLATELET COUNT, AUTOMATED 404 10^3/uL (150-450); RED BLOOD COUNT 2.95 10^6/uL (4.00-5.40); WHITE BLOOD COUNT 8.8 10^3/uL (4.0-10.0)
[2023-09-19 07:11] LABS: BLOOD UREA NITROGEN 30 MG/DL (9-23); CALCIUM LEVEL 8.9 MG/DL (8.3-10.6); CARBON DIOXIDE LEVEL 28 MMOL/L (20-31); CHLORIDE LEVEL 97 MMOL/L (98-107); CREATININE FOR GFR 0.34 MG/DL (0.55-1.30); GLOMERULAR FILTRATION RATE > 60.0 (>32); GLUCOSE, FASTING 140 MG/DL (74-106); POTASSIUM SERUM 4.4 MMOL/L (3.5-5.1); SODIUM LEVEL 130 MMOL/L (136-145)
[2023-09-19] MEDS: ACETAMINOPHEN 325MG/10.15ML UDC GT PRN ×2 (09:05→17:44)
[2023-09-19] MEDS: DIGOXIN 0.125 MG TAB PEG SCH (09:06)
[2023-09-19] MEDS: ASPIRIN 81MG CHEW TABLET GT SCH (09:06)
[2023-09-19] MEDS: VANCOMYCIN ORAL SOL 250MG/5ML ORAL SYRINGE PO SCH (09:06)
[2023-09-19] MEDS: SANTYL OINT 30GM TOP SCH (09:07)
[2023-09-19 12:45] VITALS: BP 143/73
[2023-09-19 14:00] VITALS: BP 111/64; TEMP 97.9; O2SAT 94
[2023-09-19] MEDS: ENOXAPARIN 30MG/0.3ML SYRINGE (J1650 PER 10MG) SC SCH (21:54)
[2023-09-19] MEDS: GABAPENTIN 300 MG CAP PEG SCH (21:54)
[2023-09-20] MEDS: METOPROLOL TART 25 MG TABLET PEG SCH ×3 (00:14→12:00)
[2023-09-20 05:43] VITALS: BP 151/85; TEMP 98.1; O2SAT 99
[2023-09-20 06:00] VITALS: BP 151/85
[2023-09-20] MEDS: LEVOTHYROXINE 88MCG TABLET (0.088 MG) PEG SCH (06:00)
[2023-09-20 07:11] LABS: BASO % 0.3 % (0.0-1.0); EOS # 0.1 10^3/uL (0.0-0.5); EOS % 0.8 % (0.0-3.0); HEMATOCRIT 28.4 % (36.0-47.0); HEMOGLOBIN 9.1 g/dl (12.0-15.5); LYMPH # 1.6 10^3/uL (1.5-5.0); LYMPH % 16.3 % (24.0-44.0); MEAN CORPUSCULAR HEMOGLOBIN 30.6 pg (27.0-33.0); MEAN CORPUSCULAR VOLUME 95.6 fl (80.0-96.0); MONO # 0.8 10^3/uL (0.0-0.8); MONO % 8.1 % (2.0-8.0); NEUTROPHILS # 7.3 10^3/uL (1.5-8.5); NEUTROPHILS % 73.8 % (36.0-66.0); PLATELET COUNT, AUTOMATED 394 10^3/uL (150-450); RED BLOOD COUNT 2.97 10^6/uL (4.00-5.40); WHITE BLOOD COUNT 9.9 10^3/uL (4.0-10.0)
[2023-09-20 07:58] LABS: BLOOD UREA NITROGEN 25 MG/DL (9-23); CALCIUM LEVEL 8.9 MG/DL (8.3-10.6); CARBON DIOXIDE LEVEL 27 MMOL/L (20-31); CHLORIDE LEVEL 99 MMOL/L (98-107); CREATININE FOR GFR 0.34 MG/DL (0.55-1.30); GLOMERULAR FILTRATION RATE > 60.0 (>32); GLUCOSE, FASTING 165 MG/DL (74-106); POTASSIUM SERUM 4.4 MMOL/L (3.5-5.1); SODIUM LEVEL 133 MMOL/L (136-145)
[2023-09-20] MEDS ORDERED: VANC125C3 PO (08:55)
[2023-09-20] MEDS ORDERED: METO1TAB87 PEG ×3 (08:55→10:04)
[2023-09-20] MEDS: ASPIRIN 81MG CHEW TABLET GT SCH (09:40)
[2023-09-20] MEDS: VANCOMYCIN ORAL SOL 250MG/5ML ORAL SYRINGE PO SCH (09:41)
[2023-09-20] MEDS: DIGOXIN 0.125 MG TAB PEG SCH (09:41)
[2023-09-20] MEDS: SANTYL OINT 30GM TOP SCH (09:43)
[2023-09-20] MEDS ORDERED: FIRV50SO PO (09:48)
[2023-09-20] MEDS ORDERED: METO25TA4 PEG (09:51)
[2023-09-20] MEDS ORDERED: VANC1CAP6 PEG (09:51)
[2023-09-20] MEDS ORDERED: VANC1CAP6 PO (10:03)
[2023-09-20] MEDS ORDERED: JUVEPOW4 PO (10:04)
== END 2023-09-20 12:35 | DRG 871 ==
LOC: EDBD 12:30 → M ED 12:30 → EEVIPCON 16:17 → M ED INP 16:17 → ENRESERV 16:37 → M MS5PR 18:10
PROVIDERS: ADMIT Internal Medicine Nephrology; ATTEND General Practice
DX: A41.9 Sepsis, unspecified organism (principal); E43 Unspecified severe protein-calorie malnutrition; G93.41 Metabolic encephalopathy; L89.94 Pressure ulcer of unspecified site, stage 4; E87.3 Alkalosis; E87.0 Hyperosmolality and hypernatremia; I69.354 Hemiplegia and hemiparesis following cerebral infarction affecting left non-dominant side; I50.32 Chronic diastolic (congestive) heart failure; I48.91 Unspecified atrial fibrillation; I11.0 Hypertensive heart disease with heart failure; J44.9 Chronic obstructive pulmonary disease, unspecified; I69.391 Dysphagia following cerebral infarction; I25.10 Atherosclerotic heart disease of native coronary artery without angina pectoris; R33.9 Retention of urine, unspecified; N30.90 Cystitis, unspecified without hematuria; B96.1 Klebsiella pneumoniae [K. pneumoniae] as the cause of diseases classified elsewhere; E86.0 Dehydration; Z79.899 Other long term (current) drug therapy; Z79.4 Long term (current) use of insulin; Z79.82 Long term (current) use of aspirin; E03.9 Hypothyroidism, unspecified; E78.5 Hyperlipidemia, unspecified; E11.9 Type 2 diabetes mellitus without complications; R91.1 Solitary pulmonary nodule; Z93.1 Gastrostomy status; D50.9 Iron deficiency anemia, unspecified

== ENCOUNTER → 2023-09-14 | Outpatient (REF) | payer MEDICARE, OTHER ==
[2023-09-14 16:05] LABS: HEMATOCRIT 34.4 % (36.0-47.0); HEMOGLOBIN 10.3 g/dl (12.0-15.5); MEAN CORPUSCULAR HEMOGLOBIN 30.2 pg (27.0-33.0); MEAN CORPUSCULAR HGB CONC 29.9 g/dl (32.0-36.5); MEAN CORPUSCULAR VOLUME 100.9 fl (80.0-96.0); PLATELET COUNT, AUTOMATED 488 10^3/uL (150-450); RED BLOOD COUNT 3.41 10^6/uL (4.00-5.40); WHITE BLOOD COUNT 10.3 10^3/uL (4.0-10.0)
[2023-09-14 16:12] LABS: ERYTHROCYTE SEDIMENTATION RATE > 130 mm/hr (0-30)
[2023-09-14 16:25] LABS: ALBUMIN 2.1 G/DL (3.2-5.2); ALKALINE PHOSPHATASE 90 U/L (46-116); ALT/SGPT 65 U/L (7.0-40); AST/SGOT 43 U/L (<34); BILIRUBIN,TOTAL 0.6 MG/DL (0.3-1.2); BLOOD UREA NITROGEN 53 MG/DL (9-23); CALCIUM LEVEL 9.5 MG/DL (8.3-10.6); CARBON DIOXIDE LEVEL 33 MMOL/L (20-31); CHLORIDE LEVEL 109 MMOL/L (98-107); CREATININE FOR GFR 0.44 MG/DL (0.55-1.30); GLOMERULAR FILTRATION RATE > 60.0 (>32); GLUCOSE, FASTING 315 MG/DL (74-106); POTASSIUM SERUM 4.7 MMOL/L (3.5-5.1); SODIUM LEVEL 149 MMOL/L (136-145); TOTAL PROTEIN 6.4 G/DL (5.7-8.2)
== END ==
PROVIDERS: ATTEND Physician Assistant
DX: L89.159 Pressure ulcer of sacral region, unspecified stage (principal)

== ENCOUNTER → 2023-09-14 | Outpatient (REF) | payer MEDICARE, OTHER ==
[2023-09-14 10:55] LABS: HEMOGLOBIN 10.7 g/dl (12.0-15.5); MEAN CORPUSCULAR HEMOGLOBIN 30.5 pg (27.0-33.0); MEAN CORPUSCULAR HGB CONC 30.6 g/dl (32.0-36.5); MEAN CORPUSCULAR VOLUME 99.7 fl (80.0-96.0); PLATELET COUNT, AUTOMATED 448 10^3/uL (150-450); RED BLOOD COUNT 3.51 10^6/uL (4.00-5.40)
[2023-09-14 11:14] LABS: BLOOD UREA NITROGEN 50 MG/DL (9-23); CALCIUM LEVEL 9.8 MG/DL (8.3-10.6); CARBON DIOXIDE LEVEL 35 MMOL/L (20-31); CHLORIDE LEVEL 110 MMOL/L (98-107); CREATININE FOR GFR 0.39 MG/DL (0.55-1.30); GLOMERULAR FILTRATION RATE > 60.0 (>32); GLUCOSE, FASTING 112 MG/DL (74-106); POTASSIUM SERUM 4.1 MMOL/L (3.5-5.1); SODIUM LEVEL 151 MMOL/L (136-145)
== END ==
PROVIDERS: ATTEND Physician Assistant
DX: I48.91 Unspecified atrial fibrillation (principal)

== ENCOUNTER → 2023-09-21 | Outpatient (REF) ==
[~2023-09-21] MED LIST changes: +FIRV50SO PO; +JUVEPOW4 PO; +METO25TA4 PEG; +VANC125C3 PO; +VANC1CAP6 PEG; +VANC1CAP6 PO
[2023-09-21 09:50] LABS: HEMATOCRIT 31.2 % (36.0-47.0); HEMOGLOBIN 9.9 g/dl (12.0-15.5); MEAN CORPUSCULAR HEMOGLOBIN 30.5 pg (27.0-33.0); MEAN CORPUSCULAR HGB CONC 31.7 g/dl (32.0-36.5); PLATELET COUNT, AUTOMATED 459 10^3/uL (150-450); RED BLOOD COUNT 3.25 10^6/uL (4.00-5.40); WHITE BLOOD COUNT 10.7 10^3/uL (4.0-10.0)
[2023-09-21 10:24] LABS: BLOOD UREA NITROGEN 26 MG/DL (9-23); CALCIUM LEVEL 9.2 MG/DL (8.3-10.6); CARBON DIOXIDE LEVEL 28 MMOL/L (20-31); CHLORIDE LEVEL 100 MMOL/L (98-107); CREATININE FOR GFR 0.36 MG/DL (0.55-1.30); GLOMERULAR FILTRATION RATE > 60.0 (>32); GLUCOSE, FASTING 165 MG/DL (74-106); POTASSIUM SERUM 4.2 MMOL/L (3.5-5.1); SODIUM LEVEL 136 MMOL/L (136-145)
== END ==
PROVIDERS: ATTEND Internal Medicine
DX: Z79.899 Other long term (current) drug therapy (principal)

== ENCOUNTER 2023-09-26 21:58 | Inpatient (IN) | payer MEDICARE, OTHER ==
[~2023-09-26] VITALS: Ht 160 cm; Wt 32.4 kg
[2023-09-26] MEDS: METOPROLOL 5 MG/5 ML VIAL IV SCH (00:15)
[2023-09-26 22:47] LABS: BASO % 0.2 % (0.0-1.0); EOS % 0.1 % (0.0-3.0); HEMATOCRIT 35.1 % (36.0-47.0); HEMOGLOBIN 10.5 g/dl (12.0-15.5); LYMPH # 1.8 10^3/uL (1.5-5.0); MEAN CORPUSCULAR HGB CONC 29.9 g/dl (32.0-36.5); MEAN CORPUSCULAR VOLUME 100.3 fl (80.0-96.0); MONO % 7.2 % (2.0-8.0); NEUTROPHILS # 10.8 10^3/uL (1.5-8.5); NEUTROPHILS % 79.1 % (36.0-66.0); PLATELET COUNT, AUTOMATED 512 10^3/uL (150-450); WHITE BLOOD COUNT 13.7 10^3/uL (4.0-10.0)
[2023-09-26 23:06] LABS: CK-MB VALUE MASS 2.3 NG/ML (<3.6)
[2023-09-26 23:07] LABS: CPK CREATINE PHOSPHOKINASE 39 U/L (34-145); MB/CK RELATIVE INDEX 5.89 (< OR =4)
[2023-09-26] MEDS ORDERED: ACETAMINOPHEN *IV* 500 MG in IV 1 EA IV ONE (23:25)
[2023-09-26] MEDS ORDERED: NS 1,000 ML IV ONE (23:25)
[2023-09-26 23:29] LABS: LIPASE 17 U/L (12-53)
[2023-09-26 23:42] LABS: DIGOXIN LEVEL 1.1 NG/ML (0.8-2.0); PROCALCITONIN 0.14 ng/ml
[2023-09-26 23:52] LABS: ALBUMIN 2.3 G/DL (3.2-5.2); ALKALINE PHOSPHATASE 110 U/L (46-116); ALT/SGPT 47 U/L (7.0-40); AST/SGOT 43 U/L (<34); BILIRUBIN,DIRECT 0.2 MG/DL (<0.4); BILIRUBIN,TOTAL 0.5 MG/DL (0.3-1.2); BLOOD UREA NITROGEN 62 MG/DL (9-23); CARBON DIOXIDE LEVEL 29 MMOL/L (20-31); CHLORIDE LEVEL 111 MMOL/L (98-107); CREATININE FOR GFR 0.43 MG/DL (0.55-1.30); GLOMERULAR FILTRATION RATE > 60.0 (>32); GLUCOSE, FASTING 406 MG/DL (74-106); POTASSIUM SERUM 4.6 MMOL/L (3.5-5.1); SODIUM LEVEL 149 MMOL/L (136-145); TOTAL PROTEIN 6.6 G/DL (5.7-8.2)
[2023-09-27] MEDS ORDERED: PIPERACILLIN/TAZOBACTAM SOD 4.5 GM in D5W MINI-BAG PLUS 50 ML IV ONE (00:05)
[2023-09-27] MEDS: METOPROLOL 5 MG/5 ML VIAL IV SCH ×2 (00:16→00:23)
[2023-09-27 00:55] LABS: CK-MB VALUE MASS 2.1 NG/ML (<3.6)
[2023-09-27 00:58] LABS: MB/CK RELATIVE INDEX 4.37 (< OR =4)
[2023-09-27] MEDS ORDERED: INSU100V6 SC (03:40)
[2023-09-27] MEDS ORDERED: SYNT88TA2 PEG (03:40)
[2023-09-27] MEDS ORDERED: JUVE1POW PEG (03:40)
[2023-09-27] MEDS ORDERED: FLEEENE12 PR (03:40)
[2023-09-27] MEDS ORDERED: VITMTA PEG (03:40)
[2023-09-27] MEDS ORDERED: ACET-907 PEG (03:40)
[2023-09-27] MEDS ORDERED: JEVILIQ12 PEG (03:40)
[2023-09-27] MEDS ORDERED: METO1TAB87 PEG (03:40)
[2023-09-27] MEDS ORDERED: BISA10SU27 PR (03:40)
[2023-09-27] MEDS ORDERED: MILKSUS3 PO (03:40)
[2023-09-27] MEDS ORDERED: GABA-282 PEG (03:40)
[2023-09-27] MEDS ORDERED: VANC125C3 PEG (03:40)
[2023-09-27] MEDS ORDERED: GLUC1KIT IM (03:40)
[2023-09-27] MEDS ORDERED: ASPI-655 PEG (03:48)
[2023-09-27] MEDS ORDERED: ATOR1TAB21 PEG (03:48)
[2023-09-27] MEDS ORDERED: DIGO0.123 PEG (03:48)
[2023-09-27] MEDS ORDERED: HOME MED LIST COMPLETE! XX SCH (03:50)
[2023-09-27] MEDS ORDERED: NS 0.45% 1,000 ML IV SCH (04:15)
[2023-09-27] MEDS ORDERED: HumuLIN R (REGULAR) INSULIN (NovoLIN R) **100U/ML** PER UNIT IV STA (04:16)
[2023-09-27] MEDS ORDERED: HEPARIN SOD (PORCINE) 5000UNITS/ML 1ML VIAL/SYRINGE SC SCH (05:20)
[2023-09-27] MEDS ORDERED: DEXTROSE 50% 50ML SYRINGE IV PRN (05:20)
[2023-09-27] MEDS ORDERED: GLUCOSE 4GM CHEW TABLET PO PRN (05:20)
[2023-09-27] MEDS ORDERED: GLUCAGON INJ 1MG VIAL SC PRN (05:20)
[2023-09-27] MEDS ORDERED: ONDANSETRON 4MG 2ML VIAL IV PRN (05:20)
[2023-09-27] MEDS: MEROPENEM INJ 1 GM in IV 1 EA IV SCH ×3 (05:54→21:58)
[2023-09-27 06:43] LABS: BLOOD UREA NITROGEN 51 MG/DL (9-23); CALCIUM LEVEL 7.7 MG/DL (8.3-10.6); CARBON DIOXIDE LEVEL 28 MMOL/L (20-31); CHLORIDE LEVEL 118 MMOL/L (98-107); CREATININE FOR GFR 0.38 MG/DL (0.55-1.30); GLOMERULAR FILTRATION RATE > 60.0 (>32); GLUCOSE, FASTING 190 MG/DL (74-106); POTASSIUM SERUM 3.9 MMOL/L (3.5-5.1); SODIUM LEVEL 154 MMOL/L (136-145)
[2023-09-27 07:47] LABS: BASO % 0.3 % (0.0-1.0); EOS % 0.2 % (0.0-3.0); HEMATOCRIT 30.9 % (36.0-47.0); HEMOGLOBIN 9.1 g/dl (12.0-15.5); LYMPH # 0.6 10^3/uL (1.5-5.0); LYMPH % 5.4 % (24.0-44.0); MEAN CORPUSCULAR HEMOGLOBIN 29.9 pg (27.0-33.0); MEAN CORPUSCULAR HGB CONC 29.4 g/dl (32.0-36.5); MEAN CORPUSCULAR VOLUME 101.6 fl (80.0-96.0); MONO # 0.8 10^3/uL (0.0-0.8); MONO % 7.2 % (2.0-8.0); NEUTROPHILS # 10.1 10^3/uL (1.5-8.5); NEUTROPHILS % 86.5 % (36.0-66.0); PLATELET COUNT, AUTOMATED 425 10^3/uL (150-450); RED BLOOD COUNT 3.04 10^6/uL (4.00-5.40); WHITE BLOOD COUNT 11.6 10^3/uL (4.0-10.0)
[2023-09-27] MEDS: INSULIN LISPRO (NovoLOG) PER UNIT SC SCH ×4 (07:53→21:57)
[2023-09-27] MEDS ORDERED: LEVEMIR (INSULIN DETEMIR) 1 UNITS/0.01ML SC SCH (09:00)
[2023-09-27 09:40] VITALS: BP 137/78; TEMP 97.5; O2SAT 99
[2023-09-27 11:11] VITALS: BP 139/73
[2023-09-27] MEDS: DIGOXIN 0.125 MG TAB PEG SCH (11:15)
[2023-09-27] MEDS: HEPARIN SOD (PORCINE) 5000UNITS/ML 1ML VIAL/SYRINGE SC SCH ×2 (11:15→21:57)
[2023-09-27] MEDS: METOPROLOL TART 25 MG TABLET PEG SCH ×3 (11:16→21:58)
[2023-09-27 11:40] LABS: BLOOD UREA NITROGEN 45 MG/DL (9-23); CALCIUM LEVEL 8.5 MG/DL (8.3-10.6); CARBON DIOXIDE LEVEL 31 MMOL/L (20-31); CHLORIDE LEVEL 117 MMOL/L (98-107); CREATININE FOR GFR 0.42 MG/DL (0.55-1.30); GLOMERULAR FILTRATION RATE > 60.0 (>32); GLUCOSE, FASTING 40 MG/DL (74-106); POTASSIUM SERUM 3.7 MMOL/L (3.5-5.1); SODIUM LEVEL 154 MMOL/L (136-145)
[2023-09-27] MEDS ORDERED: NS 1,000 ML IV ONE (12:00)
[2023-09-27 12:12] VITALS: BP 137/86; TEMP 97.3; O2SAT 98
[2023-09-27] MEDS: ASPIRIN 81MG CHEW TABLET PEG SCH (12:55)
[2023-09-27] MEDS: LEVOTHYROXINE 88MCG TABLET (0.088 MG) PEG SCH (12:56)
[2023-09-27] MEDS: SANTYL OINT 30GM TOP SCH (14:00)
[2023-09-27] MEDS: D5W 1,000 ML IV SCH (15:07)
[2023-09-27] MEDS: VANCOMYCIN ORAL SOL 250MG/5ML ORAL SYRINGE PO SCH (15:08)
[2023-09-27 16:04] VITALS: BP 150/73; TEMP 96.8; O2SAT 99
[2023-09-27 18:07] LABS: BLOOD UREA NITROGEN 38 MG/DL (9-23); CALCIUM LEVEL 7.9 MG/DL (8.3-10.6); CARBON DIOXIDE LEVEL 26 MMOL/L (20-31); CHLORIDE LEVEL 114 MMOL/L (98-107); CREATININE FOR GFR 0.34 MG/DL (0.55-1.30); GLOMERULAR FILTRATION RATE > 60.0 (>32); GLUCOSE, FASTING 316 MG/DL (74-106); POTASSIUM SERUM 3.9 MMOL/L (3.5-5.1); SODIUM LEVEL 147 MMOL/L (136-145)
[2023-09-27] MEDS: ACETAMINOPHEN TAB 650MG DOSE (2X325MG) PO PRN ×2 (18:53→21:58)
[2023-09-27 20:54] VITALS: BP 128/96; TEMP 98; O2SAT 98
[2023-09-27] MEDS: ATORVASTATIN 20 MG TAB PEG SCH (21:57)
[2023-09-27 23:54] VITALS: BP 138/68; TEMP 96.7; O2SAT 97
[2023-09-28] VITALS (7 sets, daily range): BP systolic 132–150; BP diastolic 67–79; TEMP 96.8–100.2; O2SAT 96–100
[2023-09-28] MEDS: D5W 1,000 ML IV SCH ×2 (01:57→20:47)
[2023-09-28] MEDS: SANTYL OINT 30GM TOP SCH (05:00)
[2023-09-28] MEDS: LEVOTHYROXINE 88MCG TABLET (0.088 MG) PEG SCH (06:08)
[2023-09-28] MEDS: ACETAMINOPHEN TAB 650MG DOSE (2X325MG) PO PRN (06:09)
[2023-09-28] MEDS: MEROPENEM INJ 1 GM in IV 1 EA IV SCH ×2 (06:10→18:14)
[2023-09-28 06:22] LABS: BASO % 0.3 % (0.0-1.0); EOS # 0.2 10^3/uL (0.0-0.5); EOS % 2.2 % (0.0-3.0); HEMATOCRIT 29.9 % (36.0-47.0); HEMOGLOBIN 8.8 g/dl (12.0-15.5); LYMPH # 1.2 10^3/uL (1.5-5.0); LYMPH % 11.4 % (24.0-44.0); MEAN CORPUSCULAR HEMOGLOBIN 29.7 pg (27.0-33.0); MEAN CORPUSCULAR HGB CONC 29.4 g/dl (32.0-36.5); MONO # 0.8 10^3/uL (0.0-0.8); MONO % 7.8 % (2.0-8.0); NEUTROPHILS % 77.8 % (36.0-66.0); PLATELET COUNT, AUTOMATED 374 10^3/uL (150-450); RED BLOOD COUNT 2.96 10^6/uL (4.00-5.40); WHITE BLOOD COUNT 10.3 10^3/uL (4.0-10.0)
[2023-09-28 07:31] LABS: BLOOD UREA NITROGEN 29 MG/DL (9-23); CARBON DIOXIDE LEVEL 28 MMOL/L (20-31); CHLORIDE LEVEL 109 MMOL/L (98-107); CREATININE FOR GFR 0.39 MG/DL (0.55-1.30); GLOMERULAR FILTRATION RATE > 60.0 (>32); GLUCOSE, FASTING 202 MG/DL (74-106); POTASSIUM SERUM 3.7 MMOL/L (3.5-5.1); SODIUM LEVEL 142 MMOL/L (136-145)
[2023-09-28] MEDS: ASPIRIN 81MG CHEW TABLET PEG SCH (09:51)
[2023-09-28] MEDS: VANCOMYCIN ORAL SOL 250MG/5ML ORAL SYRINGE PO SCH (09:51)
[2023-09-28] MEDS: HEPARIN SOD (PORCINE) 5000UNITS/ML 1ML VIAL/SYRINGE SC SCH ×2 (09:51→20:45)
[2023-09-28] MEDS: DIGOXIN 0.125 MG TAB PEG SCH (09:52)
[2023-09-28] MEDS: METOPROLOL TART 25 MG TABLET PEG SCH ×3 (09:52→20:46)
[2023-09-28] MEDS: INSULIN LISPRO (NovoLOG) PER UNIT SC SCH ×4 (09:53→20:40)
[2023-09-28] MEDS ORDERED: VANCOMYCIN HCL 750 MG, VIAL MATE ADAPTER 1 EACH in D5W 250 ML IV SCH (10:45)
[2023-09-28] MEDS ORDERED: VANCOMYCIN HCL 1,000 MG, VIAL MATE ADAPTER 1 EACH in D5W 250 ML IV ONE (12:00)
[2023-09-28] MEDS: LACTOBACILLUS ACIDOPHILUS CAP (BACID) PO SCH (20:45)
[2023-09-28] MEDS: ATORVASTATIN 20 MG TAB PEG SCH (20:45)
[2023-09-28] MEDS: LOMOTIL 2.5MG/0.025MG TABLET PO SCH (20:47)
[2023-09-29] VITALS (8 sets, daily range): BP systolic 129–157; BP diastolic 68–82; TEMP 97–98.9; O2SAT 95–99
[2023-09-29] MEDS: LEVOTHYROXINE 88MCG TABLET (0.088 MG) PEG SCH (05:57)
[2023-09-29] MEDS: MEROPENEM INJ 1 GM in IV 1 EA IV SCH (05:57)
[2023-09-29 07:41] LABS: BASO % 0.4 % (0.0-1.0); EOS # 0.1 10^3/uL (0.0-0.5); EOS % 1.2 % (0.0-3.0); HEMOGLOBIN 8.8 g/dl (12.0-15.5); LYMPH # 1.6 10^3/uL (1.5-5.0); LYMPH % 20.2 % (24.0-44.0); MEAN CORPUSCULAR HEMOGLOBIN 29.2 pg (27.0-33.0); MEAN CORPUSCULAR HGB CONC 30.3 g/dl (32.0-36.5); MEAN CORPUSCULAR VOLUME 96.3 fl (80.0-96.0); MONO # 0.7 10^3/uL (0.0-0.8); MONO % 8.7 % (2.0-8.0); NEUTROPHILS # 5.6 10^3/uL (1.5-8.5); NEUTROPHILS % 69.1 % (36.0-66.0); PLATELET COUNT, AUTOMATED 338 10^3/uL (150-450); RED BLOOD COUNT 3.01 10^6/uL (4.00-5.40); WHITE BLOOD COUNT 8.1 10^3/uL (4.0-10.0)
[2023-09-29 07:49] LABS: BLOOD UREA NITROGEN 25 MG/DL (9-23); CALCIUM LEVEL 7.7 MG/DL (8.3-10.6); CARBON DIOXIDE LEVEL 26 MMOL/L (20-31); CHLORIDE LEVEL 107 MMOL/L (98-107); CREATININE FOR GFR 0.35 MG/DL (0.55-1.30); GLOMERULAR FILTRATION RATE > 60.0 (>32); GLUCOSE, FASTING 170 MG/DL (74-106); SODIUM LEVEL 137 MMOL/L (136-145)
[2023-09-29] MEDS ORDERED: VANCOMYCIN HCL 750 MG, VIAL MATE ADAPTER 1 EACH in D5W 250 ML IV SCH (08:00)
[2023-09-29] MEDS ORDERED: VANCOMYCIN HCL 1,000 MG, VIAL MATE ADAPTER 1 EACH in D5W 250 ML IV SCH (09:00)
[2023-09-29] MEDS: HEPARIN SOD (PORCINE) 5000UNITS/ML 1ML VIAL/SYRINGE SC SCH ×2 (09:18→22:28)
[2023-09-29] MEDS: LACTOBACILLUS ACIDOPHILUS CAP (BACID) PO SCH ×2 (09:19→22:28)
[2023-09-29] MEDS: INSULIN LISPRO (NovoLOG) PER UNIT SC SCH ×4 (09:19→19:59)
[2023-09-29] MEDS: ASPIRIN 81MG CHEW TABLET PEG SCH (09:19)
[2023-09-29] MEDS: VANCOMYCIN ORAL SOL 250MG/5ML ORAL SYRINGE PO SCH (09:19)
[2023-09-29] MEDS: DIGOXIN 0.125 MG TAB PEG SCH (09:20)
[2023-09-29] MEDS: METOPROLOL TART 25 MG TABLET PEG SCH ×3 (09:20→22:28)
[2023-09-29] MEDS: SANTYL OINT 30GM TOP SCH (09:21)
[2023-09-29] MEDS: LOMOTIL 2.5MG/0.025MG TABLET PO SCH ×2 (09:23→22:28)
[2023-09-29] MEDS ORDERED: LIDOCAINE 1% MDV 20ML VIAL As Ordered ONE (14:45)
[2023-09-29] MEDS ORDERED: SODIUM CHLORIDE 0.9% INJ 10 ML SYR IV PRN (16:25)
[2023-09-29] MEDS: SODIUM CHLORIDE 0.9% INJ 10 ML SYR IV SCH (17:40)
[2023-09-29] MEDS ORDERED: ERTAPENEM SODIUM 1 GM in NS MINI-BAG PLUS 50 ML IV SCH (18:00)
[2023-09-29] MEDS: ATORVASTATIN 20 MG TAB PEG SCH (22:28)
[2023-09-30 03:00] VITALS: BP 144/82; TEMP 98; O2SAT 98
[2023-09-30 06:02] LABS: BASO % 0.3 % (0.0-1.0); EOS # 0.1 10^3/uL (0.0-0.5); EOS % 1.4 % (0.0-3.0); HEMATOCRIT 27.7 % (36.0-47.0); HEMOGLOBIN 8.8 g/dl (12.0-15.5); LYMPH # 1.8 10^3/uL (1.5-5.0); LYMPH % 22.7 % (24.0-44.0); MEAN CORPUSCULAR HEMOGLOBIN 30.3 pg (27.0-33.0); MEAN CORPUSCULAR HGB CONC 31.8 g/dl (32.0-36.5); MEAN CORPUSCULAR VOLUME 95.5 fl (80.0-96.0); MONO # 0.8 10^3/uL (0.0-0.8); NEUTROPHILS # 5.2 10^3/uL (1.5-8.5); NEUTROPHILS % 65.1 % (36.0-66.0); PLATELET COUNT, AUTOMATED 338 10^3/uL (150-450); WHITE BLOOD COUNT 7.9 10^3/uL (4.0-10.0)
[2023-09-30 06:19] LABS: BLOOD UREA NITROGEN 34 MG/DL (9-23); CALCIUM LEVEL 7.8 MG/DL (8.3-10.6); CARBON DIOXIDE LEVEL 26 MMOL/L (20-31); CHLORIDE LEVEL 105 MMOL/L (98-107); CREATININE FOR GFR 0.35 MG/DL (0.55-1.30); GLOMERULAR FILTRATION RATE > 60.0 (>32); GLUCOSE, FASTING 158 MG/DL (74-106); POTASSIUM SERUM 4.3 MMOL/L (3.5-5.1); SODIUM LEVEL 137 MMOL/L (136-145)
[2023-09-30] MEDS: LEVOTHYROXINE 88MCG TABLET (0.088 MG) PEG SCH (06:19)
[2023-09-30] MEDS: SODIUM CHLORIDE 0.9% INJ 10 ML SYR IV SCH (06:25)
[2023-09-30 07:37] VITALS: BP 158/96; TEMP 96.8; O2SAT 98
[2023-09-30] MEDS: INSULIN LISPRO (NovoLOG) PER UNIT SC SCH ×2 (08:44→12:25)
[2023-09-30] MEDS: LACTOBACILLUS ACIDOPHILUS CAP (BACID) PO SCH (08:45)
[2023-09-30] MEDS: VANCOMYCIN ORAL SOL 250MG/5ML ORAL SYRINGE PO SCH (08:45)
[2023-09-30] MEDS: DIGOXIN 0.125 MG TAB PEG SCH (08:45)
[2023-09-30] MEDS: LOMOTIL 2.5MG/0.025MG TABLET PO SCH (08:45)
[2023-09-30] MEDS: HEPARIN SOD (PORCINE) 5000UNITS/ML 1ML VIAL/SYRINGE SC SCH (08:45)
[2023-09-30] MEDS: ASPIRIN 81MG CHEW TABLET PEG SCH (08:45)
[2023-09-30 08:46] VITALS: BP 158/96
[2023-09-30] MEDS: METOPROLOL TART 25 MG TABLET PEG SCH (08:46)
[2023-09-30] MEDS: SANTYL OINT 30GM TOP SCH (10:36)
[2023-09-30] MEDS ORDERED: DIPH2.5T15 PO (11:15)
[2023-09-30] MEDS ORDERED: RISATAB3 PO (11:15)
[2023-09-30] MEDS ORDERED: ERTA1INJ3 IJ (11:15)
[2023-09-30] MEDS ORDERED: VANC125C3 PEG (11:15)
[2023-09-30] MEDS ORDERED: SANT250O8 TOP (11:15)
[2023-09-30 11:32] VITALS: BP 143/67; TEMP 96.8; O2SAT 98
== END 2023-09-30 12:41 | DRG 871 ==
LOC: M ED 21:58 → EDBD 21:58 → M ED INP 09-27 05:17 → ENRESERV 09-27 08:38 → M PCU 09-27 09:38
PROVIDERS: ADMIT Internal Medicine; ATTEND Internal Medicine
PROC: 05HB33Z Insertion of Infusion Device into Right Basilic Vein, Percutaneous Approach (ICD-10-PCS; principal; 2023-09-29 15:30)
DX: A41.9 Sepsis, unspecified organism (principal); E43 Unspecified severe protein-calorie malnutrition; L89.303 Pressure ulcer of unspecified buttock, stage 3; L89.103 Pressure ulcer of unspecified part of back, stage 3; E87.0 Hyperosmolality and hypernatremia; I50.32 Chronic diastolic (congestive) heart failure; I69.354 Hemiplegia and hemiparesis following cerebral infarction affecting left non-dominant side; I69.954 Hemiplegia and hemiparesis following unspecified cerebrovascular disease affecting left non-dominant side; Z68.1 Body mass index [BMI] 19.9 or less, adult; N39.0 Urinary tract infection, site not specified; E11.65 Type 2 diabetes mellitus with hyperglycemia; R65.20 Severe sepsis without septic shock; B96.1 Klebsiella pneumoniae [K. pneumoniae] as the cause of diseases classified elsewhere; B96.20 Unspecified Escherichia coli [E. coli] as the cause of diseases classified elsewhere; J44.9 Chronic obstructive pulmonary disease, unspecified; I11.0 Hypertensive heart disease with heart failure; I48.91 Unspecified atrial fibrillation; E03.9 Hypothyroidism, unspecified; I25.10 Atherosclerotic heart disease of native coronary artery without angina pectoris; Z79.899 Other long term (current) drug therapy; Z79.82 Long term (current) use of aspirin; Z79.4 Long term (current) use of insulin; Z95.2 Presence of prosthetic heart valve

== ENCOUNTER → 2023-09-28 | Outpatient (REF) ==
[~2023-09-28] MED LIST changes: +ACET-907 PEG; +ASPI-655 PEG; +DIPH2.5T15 PO; +ERTA1INJ3 IJ; +GLUC1KIT IM; +INSU100V6 SC; +JEVILIQ12 PEG; +JUVE1POW PEG; +MILKSUS3 PO; +RISATAB3 PO; +SANT250O8 TOP; +SYNT88TA2 PEG; +VANC125C3 PEG; +VITMTA PEG
== END ==
PROVIDERS: ATTEND Internal Medicine
DX: I48.91 Unspecified atrial fibrillation (principal); Z53.8 Procedure and treatment not carried out for other reasons

== ENCOUNTER → 2023-09-28 | Outpatient (REF) | payer MEDICARE, OTHER | PROVIDERS: ATTEND Internal Medicine | DX: I48.91 Unspecified atrial fibrillation (principal); Z53.8 Procedure and treatment not carried out for other reasons ==

== ENCOUNTER → 2023-09-30 | Outpatient (REF) ==
[2023-09-30 15:52] LABS: BLOOD UREA NITROGEN 37 MG/DL (9-23); CALCIUM LEVEL 7.8 MG/DL (8.3-10.6); CARBON DIOXIDE LEVEL 30 MMOL/L (20-31); CHLORIDE LEVEL 103 MMOL/L (98-107); CREATININE FOR GFR 0.33 MG/DL (0.55-1.30); GLOMERULAR FILTRATION RATE > 60.0 (>32); GLUCOSE, FASTING 142 MG/DL (74-106); POTASSIUM SERUM 4.4 MMOL/L (3.5-5.1); SODIUM LEVEL 136 MMOL/L (136-145)
== END ==
LOC: SKLAB3 14:35
PROVIDERS: ATTEND Internal Medicine
DX: E11.9 Type 2 diabetes mellitus without complications (principal)

== ENCOUNTER → 2023-10-11 | Outpatient (REF) ==
[2023-10-11 11:09] LABS: HEMATOCRIT 30.5 % (36.0-47.0); HEMOGLOBIN 9.3 g/dl (12.0-15.5); MEAN CORPUSCULAR HGB CONC 30.5 g/dl (32.0-36.5); MEAN CORPUSCULAR VOLUME 98.4 fl (80.0-96.0); PLATELET COUNT, AUTOMATED 320 10^3/uL (150-450); WHITE BLOOD COUNT 8.2 10^3/uL (4.0-10.0)
[2023-10-11 11:38] LABS: ALKALINE PHOSPHATASE 92 U/L (46-116); ALT/SGPT 18 U/L (7.0-40); AST/SGOT 21 U/L (<34); BILIRUBIN,TOTAL 0.6 MG/DL (0.3-1.2); BLOOD UREA NITROGEN 50 MG/DL (9-23); CALCIUM LEVEL 8.5 MG/DL (8.3-10.6); CARBON DIOXIDE LEVEL 31 MMOL/L (20-31); CHLORIDE LEVEL 107 MMOL/L (98-107); CREATININE FOR GFR 0.34 MG/DL (0.55-1.30); DIGOXIN LEVEL 1.7 NG/ML (0.8-2.0); GLOMERULAR FILTRATION RATE > 60.0 (>32); GLUCOSE, FASTING 299 MG/DL (74-106); POTASSIUM SERUM 5.1 MMOL/L (3.5-5.1); SODIUM LEVEL 139 MMOL/L (136-145); TOTAL PROTEIN 5.7 G/DL (5.7-8.2)
== END ==
LOC: SKLAB3 10:30
PROVIDERS: ATTEND Internal Medicine
DX: I48.91 Unspecified atrial fibrillation (principal); E11.9 Type 2 diabetes mellitus without complications

== ENCOUNTER 2023-10-19 22:17 | Inpatient (IN) | payer MEDICARE, OTHER ==
[~2023-10-19] VITALS: Ht 152.4 cm; Wt 43.4 kg
[2023-10-19] MEDS ORDERED: NS 500 ML IV ONE (22:25)
[2023-10-19 22:54] LABS: BASO % 0.3 % (0.0-1.0); EOS # 0.1 10^3/uL (0.0-0.5); EOS % 0.6 % (0.0-3.0); HEMATOCRIT 40.3 % (36.0-47.0); HEMOGLOBIN 12.1 g/dl (12.0-15.5); LYMPH # 1.2 10^3/uL (1.5-5.0); LYMPH % 7.7 % (24.0-44.0); MEAN CORPUSCULAR HEMOGLOBIN 30.6 pg (27.0-33.0); MEAN CORPUSCULAR VOLUME 101.8 fl (80.0-96.0); MONO # 0.8 10^3/uL (0.0-0.8); MONO % 5.2 % (2.0-8.0); NEUTROPHILS # 13.2 10^3/uL (1.5-8.5); NEUTROPHILS % 85.9 % (36.0-66.0); PLATELET COUNT, AUTOMATED 227 10^3/uL (150-450); RED BLOOD COUNT 3.96 10^6/uL (4.00-5.40); WHITE BLOOD COUNT 15.3 10^3/uL (4.0-10.0)
[2023-10-19 23:08] LABS: INR 1.21
[2023-10-19 23:09] LABS: PARTIAL THROMBOPLASTIN TIME 27.1 SECONDS (24.8-34.2)
[2023-10-19 23:23] LABS: AMYLASE 30 U/L (30-118)
[2023-10-19 23:30] LABS: APPEARANCE, URINE CLOUDY (CLEAR); BACTERIA, URINE AUTO 1+ (NEGATIVE); BILIRUBIN, URINE AUTO NEGATIVE (NEGATIVE); BLOOD, URINE BLOOD NEGATIVE (NEGATIVE); COLOR, URINE YELLOW (YELLOW); GLUCOSE, URINE (UA) AUTO 3+ mg/dL (NEGATIVE); KETONE, URINE AUTO NEGATIVE (NEGATIVE); LEUKOCYTE ESTERASE, URINE AUTO 3+ (NEGATIVE); MUCUS, URINE SMALL (NEGATIVE); NITRITE, URINE AUTO NEGATIVE (NEGATIVE); PROTEIN, URINE AUTO 2+ mg/dL (NEGATIVE); RBC, URINE AUTO 19 /HPF (0-3); SPECIFIC GRAVITY URINE AUTO 1.021 (1.002-1.035); SQUAMOUS EPITHELIAL CELL UR AU 0 /HPF (0-6); UROBILINOGEN, URINE AUTO 0.2 mg/dL (0.0-2.0); WBC, URINE AUTO TNTC /HPF (0-3)
[2023-10-20] MEDS ORDERED: PIPERACILLIN/TAZOBACTAM SOD 4.5 GM in D5W MINI-BAG PLUS 50 ML IV ONE ×2
[2023-10-20] MEDS ORDERED: VANCOMYCIN HCL 1,000 MG in IV FLUID PLACE HOLDER 1 EA IV ONE ×2
[2023-10-20 00:18] LABS: ALBUMIN 2.4 G/DL (3.2-5.2); ALKALINE PHOSPHATASE 113 U/L (46-116); ALT/SGPT 69 U/L (7.0-40); AST/SGOT 43 U/L (<34); BILIRUBIN,DIRECT 0.3 MG/DL (<0.4); BILIRUBIN,TOTAL 0.8 MG/DL (0.3-1.2); BLOOD UREA NITROGEN 63 MG/DL (9-23); CALCIUM LEVEL 8.9 MG/DL (8.3-10.6); CARBON DIOXIDE LEVEL 30 MMOL/L (20-31); CHLORIDE LEVEL 113 MMOL/L (98-107); CPK CREATINE PHOSPHOKINASE 45 U/L (34-145); CREATININE FOR GFR 0.44 MG/DL (0.55-1.30); GLOMERULAR FILTRATION RATE > 60.0 (>32); GLUCOSE, FASTING 440 MG/DL (74-106); MB/CK RELATIVE INDEX 4.44 (< OR =4); SODIUM LEVEL 147 MMOL/L (136-145); TOTAL PROTEIN 6.9 G/DL (5.7-8.2)
[2023-10-20 00:35] LABS: PROCALCITONIN 0.12 ng/ml
[2023-10-20 00:42] LABS: ABG BASE EXCESS 3.9 (-2.0-2.0); ABG HCO3 27.9 MMOL/L (22.0-26.0); ABG O2 SATURATION 98.4 % (95.0-99.0); ABG PARTIAL PRESSURE CO2 39.7 mmHg (35.0-45.0); ABG PARTIAL PRESSURE O2 125.7 mmHg (75.0-100.0); ABG TOTAL CO2 29.1 MMOL/L (23.0-31.0); ABG pH (ARTERIAL) 7.465 UNITS (7.350-7.450)
[2023-10-20] MEDS ORDERED: NS 0.45% 1,000 ML IV SCH ×2 (01:00→02:00)
[2023-10-20] MEDS ORDERED: HumuLIN R (REGULAR) INSULIN (NovoLIN R) **100U/ML** PER UNIT IV ONE (01:00)
[2023-10-20] MEDS ORDERED: AZITHROMYCIN INJ 500 MG, VIAL MATE ADAPTER 1 EACH in NS 250 ML IV ONE (01:00)
[2023-10-20 01:57] LABS: CK-MB VALUE MASS 2.1 NG/ML (<3.6)
[2023-10-20 01:58] LABS: MB/CK RELATIVE INDEX 4.28 (< OR =4)
[2023-10-20] MEDS ORDERED: PIPERACILLIN/TAZOBACTAM SOD 3.375 GM in D5W MINI-BAG PLUS 50 ML IV SCH ×2 (02:00→06:00)
[2023-10-20] MEDS ORDERED: VANCOMYCIN HCL 680 MG in IV FLUID PLACE HOLDER 1 EA IV SCH (02:00)
[2023-10-20] MEDS ORDERED: GLUCOSE 4GM CHEW TABLET PO PRN (02:00)
[2023-10-20] MEDS ORDERED: VANCOMYCIN HCL 1,000 MG, VIAL MATE ADAPTER 1 EACH in D5W 250 ML IV ONE (02:00)
[2023-10-20] MEDS ORDERED: DEXTROSE 50% 50ML SYRINGE IV PRN (02:00)
[2023-10-20] MEDS ORDERED: GLUCAGON INJ 1MG VIAL SC PRN (02:00)
[2023-10-20] MEDS ORDERED: OXYC-517 PEG (02:03)
[2023-10-20] MEDS ORDERED: ACET65SU PR (02:03)
[2023-10-20] MEDS ORDERED: INSULANT SC (02:03)
[2023-10-20] MEDS ORDERED: [UNRECOGNIZED DRUG - CODE] PEG (02:03)
[2023-10-20] MEDS ORDERED: FERR1ELX PEG (02:03)
[2023-10-20] MEDS ORDERED: LOMO2.5T PEG (02:03)
[2023-10-20] MEDS ORDERED: SANT250O8 TOP (02:15)
[2023-10-20] MEDS ORDERED: HOME MED LIST COMPLETE! XX SCH (02:15)
[2023-10-20] MEDS ORDERED: ACET-907 PO (02:15)
[2023-10-20 03:56] LABS: BLOOD UREA NITROGEN 59 MG/DL (9-23); CALCIUM LEVEL 8.5 MG/DL (8.3-10.6); CARBON DIOXIDE LEVEL 31 MMOL/L (20-31); CHLORIDE LEVEL 115 MMOL/L (98-107); CREATININE FOR GFR 0.45 MG/DL (0.55-1.30); GLOMERULAR FILTRATION RATE > 60.0 (>32); GLUCOSE, FASTING 286 MG/DL (74-106); SODIUM LEVEL 147 MMOL/L (136-145)
[2023-10-20 04:00] VITALS: BP 133/74; TEMP 97.5; O2SAT 92
[2023-10-20] MEDS ORDERED: MEROPENEM INJ 1 GM in IV 1 EA IV SCH (04:00)
[2023-10-20] MEDS: INSULIN LISPRO (NovoLOG) PER UNIT SC SCH ×4 (06:06→21:11)
[2023-10-20 08:22] LABS: ALBUMIN 2.1 G/DL (3.2-5.2); ALKALINE PHOSPHATASE 85 U/L (46-116); ALT/SGPT 61 U/L (7.0-40); AST/SGOT 38 U/L (<34); BILIRUBIN,DIRECT 0.4 MG/DL (<0.4); TOTAL PROTEIN 5.8 G/DL (5.7-8.2)
[2023-10-20 08:28] LABS: ABG BASE EXCESS 4.8 (-2.0-2.0); ABG HCO3 29.1 MMOL/L (22.0-26.0); ABG O2 SATURATION 97.1 % (95.0-99.0); ABG PARTIAL PRESSURE CO2 42.1 mmHg (35.0-45.0); ABG PARTIAL PRESSURE O2 91.9 mmHg (75.0-100.0); ABG STANDARD HCO3 28.8 MMOL/L. (22.0-26.0); ABG TOTAL CO2 30.4 MMOL/L (23.0-31.0); ABG pH (ARTERIAL) 7.458 UNITS (7.350-7.450)
[2023-10-20 08:32] LABS: BASO % 0.3 % (0.0-1.0); EOS % 0.2 % (0.0-3.0); HEMATOCRIT 33.7 % (36.0-47.0); HEMOGLOBIN 9.9 g/dl (12.0-15.5); LYMPH % 6.9 % (24.0-44.0); MEAN CORPUSCULAR HEMOGLOBIN 30.1 pg (27.0-33.0); MEAN CORPUSCULAR HGB CONC 29.4 g/dl (32.0-36.5); MEAN CORPUSCULAR VOLUME 102.4 fl (80.0-96.0); MONO # 0.9 10^3/uL (0.0-0.8); MONO % 6.2 % (2.0-8.0); NEUTROPHILS # 12.3 10^3/uL (1.5-8.5); PLATELET COUNT, AUTOMATED 223 10^3/uL (150-450); RED BLOOD COUNT 3.29 10^6/uL (4.00-5.40); WHITE BLOOD COUNT 14.3 10^3/uL (4.0-10.0)
[2023-10-20] MEDS: IPRATROPIUM 0.5MG/ALBUTEROL 2.5MG INH SOL UD 3ML (DUONEB) NEB SCH ×4 (08:32→19:11)
[2023-10-20] MEDS: ASPIRIN 81MG CHEW TABLET PEG SCH ×2 (08:45→09:00)
[2023-10-20] MEDS: HEPARIN SOD (PORCINE) 5000UNITS/ML 1ML VIAL/SYRINGE SC SCH ×2 (08:45→09:00)
[2023-10-20] MEDS: DIGOXIN 0.125 MG TAB PEG SCH (08:45)
[2023-10-20] MEDS: LEVOTHYROXINE 88MCG TABLET (0.088 MG) PEG SCH (08:46)
[2023-10-20] MEDS: METOPROLOL TART 25 MG TABLET PEG SCH ×2 (08:46→21:11)
[2023-10-20] MEDS ORDERED: LEVEMIR (INSULIN DETEMIR) 1 UNITS/0.01ML SC SCH (09:00)
[2023-10-20 09:18] LABS: BASO % 0.3 % (0.0-1.0); EOS # 0.1 10^3/uL (0.0-0.5); EOS % 0.5 % (0.0-3.0); HEMATOCRIT 34.9 % (36.0-47.0); HEMOGLOBIN 10.4 g/dl (12.0-15.5); LYMPH # 1.4 10^3/uL (1.5-5.0); LYMPH % 10.9 % (24.0-44.0); MEAN CORPUSCULAR HEMOGLOBIN 30.3 pg (27.0-33.0); MEAN CORPUSCULAR HGB CONC 29.8 g/dl (32.0-36.5); MEAN CORPUSCULAR VOLUME 101.7 fl (80.0-96.0); MONO % 7.3 % (2.0-8.0); NEUTROPHILS # 10.6 10^3/uL (1.5-8.5); NEUTROPHILS % 80.5 % (36.0-66.0); PLATELET COUNT, AUTOMATED 213 10^3/uL (150-450); RED BLOOD COUNT 3.43 10^6/uL (4.00-5.40); WHITE BLOOD COUNT 13.2 10^3/uL (4.0-10.0)
[2023-10-20 09:54] LABS: BLOOD UREA NITROGEN 50 MG/DL (9-23); CARBON DIOXIDE LEVEL 31 MMOL/L (20-31); CHLORIDE LEVEL 114 MMOL/L (98-107); CREATININE FOR GFR 0.47 MG/DL (0.55-1.30); GLOMERULAR FILTRATION RATE > 60.0 (>32); GLUCOSE, FASTING 241 MG/DL (74-106); POTASSIUM SERUM 4.2 MMOL/L (3.5-5.1); SODIUM LEVEL 152 MMOL/L (136-145)
[2023-10-20] MEDS: LEVEMIR (INSULIN DETEMIR) 1 UNITS/0.01ML SC SCH (10:36)
[2023-10-20 11:04] LABS: CK-MB VALUE MASS 2.5 NG/ML (<3.6)
[2023-10-20 11:06] LABS: CPK CREATINE PHOSPHOKINASE 43 U/L (34-145); MB/CK RELATIVE INDEX 5.81 (< OR =4)
[2023-10-20 12:04] LABS: HEMATOCRIT 37.4 % (36.0-47.0); MEAN CORPUSCULAR HEMOGLOBIN 29.4 pg (27.0-33.0); MEAN CORPUSCULAR HGB CONC 29.4 g/dl (32.0-36.5); PLATELET COUNT, AUTOMATED 219 10^3/uL (150-450); RED BLOOD COUNT 3.74 10^6/uL (4.00-5.40); WHITE BLOOD COUNT 12.6 10^3/uL (4.0-10.0)
[2023-10-20] MEDS: D5W 1,000 ML IV SCH ×2 (12:15→22:24)
[2023-10-20] MEDS: PANTOPRAZOLE 40MG VIAL IV SCH ×2 (12:15→21:11)
[2023-10-20 13:54] VITALS: BP 144/80; TEMP 99.4; O2SAT 95
[2023-10-20] MEDS: SUCRALFATE SUSP 1GM/10ML UD PEG SCH ×2 (15:06→21:11)
[2023-10-20 15:31] VITALS: BP 144/82; TEMP 100.1; O2SAT 95
[2023-10-20 16:32] LABS: BLOOD UREA NITROGEN 40 MG/DL (9-23); CALCIUM LEVEL 8.8 MG/DL (8.3-10.6); CARBON DIOXIDE LEVEL 32 MMOL/L (20-31); CHLORIDE LEVEL 115 MMOL/L (98-107); CREATININE FOR GFR 0.47 MG/DL (0.55-1.30); GLOMERULAR FILTRATION RATE > 60.0 (>32); GLUCOSE, FASTING 137 MG/DL (74-106); POTASSIUM SERUM 4.2 MMOL/L (3.5-5.1); SODIUM LEVEL 151 MMOL/L (136-145)
[2023-10-20] MEDS: METOPROLOL 5 MG/5 ML VIAL IV SCH ×3 (17:02→18:20)
[2023-10-20] MEDS: MEROPENEM INJ 1 GM in IV 1 EA IV SCH (17:35)
[2023-10-20 20:20] VITALS: BP 136/60; TEMP 103.7; O2SAT 95
[2023-10-20] MEDS ORDERED: ACETAMINOPHEN *IV* 500 MG in IV 1 EA IV ONE (20:40)
[2023-10-20] MEDS ORDERED: AZITHROMYCIN 250MG TABLET PO SCH (21:00)
[2023-10-20] MEDS ORDERED: VANCOMYCIN HCL 750 MG, VIAL MATE ADAPTER 1 EACH in D5W 250 ML IV SCH (21:00)
[2023-10-20 22:00] VITALS: TEMP 100.6
[2023-10-20 23:50] VITALS: BP 100/57; TEMP 98.4; O2SAT 96
[2023-10-21] MEDS: INSULIN LISPRO (NovoLOG) PER UNIT SC SCH ×6 (01:19→23:49)
[2023-10-21 03:47] VITALS: BP 142/67; TEMP 97.9; O2SAT 94
[2023-10-21] MEDS: MEROPENEM INJ 1 GM in IV 1 EA IV SCH ×2 (05:48→17:51)
[2023-10-21] MEDS: LEVOTHYROXINE 88MCG TABLET (0.088 MG) PEG SCH (05:48)
[2023-10-21] MEDS: SUCRALFATE SUSP 1GM/10ML UD PEG SCH ×3 (05:48→21:31)
[2023-10-21 07:01] LABS: HEMATOCRIT 39.1 % (36.0-47.0); HEMOGLOBIN 11.3 g/dl (12.0-15.5); MEAN CORPUSCULAR HGB CONC 28.9 g/dl (32.0-36.5); MEAN CORPUSCULAR VOLUME 103.7 fl (80.0-96.0); PLATELET COUNT, AUTOMATED 226 10^3/uL (150-450); RED BLOOD COUNT 3.77 10^6/uL (4.00-5.40); WHITE BLOOD COUNT 17.6 10^3/uL (4.0-10.0)
[2023-10-21 07:31] LABS: CK-MB VALUE MASS 2.2 NG/ML (<3.6)
[2023-10-21 07:34] LABS: ATYPICAL LYMPH 3 % (0-5); LYMPHOCYTES 15 % (16-44); MONOCYTES 5 % (0-5); NEUTROPHILS 72 % (28-66)
[2023-10-21 07:35] LABS: ANISOCYTOSIS 2+
[2023-10-21 07:36] LABS: PLATELET ESTIMATE NORMAL (NORMAL)
[2023-10-21 07:39] LABS: PROCALCITONIN 0.71 ng/ml
[2023-10-21 07:41] LABS: BLOOD UREA NITROGEN 37 MG/DL (9-23); CALCIUM LEVEL 8.5 MG/DL (8.3-10.6); CARBON DIOXIDE LEVEL 27 MMOL/L (20-31); CHLORIDE LEVEL 109 MMOL/L (98-107); CPK CREATINE PHOSPHOKINASE 39 U/L (34-145); CREATININE FOR GFR 0.57 MG/DL (0.55-1.30); GLOMERULAR FILTRATION RATE > 60.0 (>32); GLUCOSE, FASTING 123 MG/DL (74-106); MB/CK RELATIVE INDEX 5.64 (< OR =4); POTASSIUM SERUM 3.6 MMOL/L (3.5-5.1); SODIUM LEVEL 145 MMOL/L (136-145)
[2023-10-21] MEDS: IPRATROPIUM 0.5MG/ALBUTEROL 2.5MG INH SOL UD 3ML (DUONEB) NEB SCH ×4 (07:54→19:12)
[2023-10-21 08:04] VITALS: BP 125/63; TEMP 97.1; O2SAT 94
[2023-10-21] MEDS: ASPIRIN 81MG CHEW TABLET PEG SCH (09:34)
[2023-10-21] MEDS: PANTOPRAZOLE 40MG VIAL IV SCH ×2 (09:34→21:30)
[2023-10-21] MEDS: LEVEMIR (INSULIN DETEMIR) 1 UNITS/0.01ML SC SCH (09:34)
[2023-10-21] MEDS: METOPROLOL TART 25 MG TABLET PEG SCH ×2 (09:35→21:31)
[2023-10-21] MEDS: DIGOXIN 0.125 MG TAB PEG SCH (09:35)
[2023-10-21 11:40] VITALS: BP 113/62; TEMP 98.2; O2SAT 94
[2023-10-21] MEDS: HEPARIN SOD (PORCINE) 5000UNITS/ML 1ML VIAL/SYRINGE SQ SCH ×2 (13:41→21:30)
[2023-10-21 16:07] VITALS: BP 124/70; TEMP 99.3; O2SAT 94
[2023-10-21 21:07] VITALS: BP 144/68; TEMP 102; O2SAT 93
[2023-10-21] MEDS ORDERED: ACETAMINOPHEN *IV* 500 MG in IV 1 EA IV ONE (21:25)
[2023-10-21] MEDS: AZITHROMYCIN 250MG TABLET PEG SCH (21:31)
[2023-10-21 23:36] VITALS: BP 139/63; TEMP 100.7; O2SAT 94
[2023-10-22] VITALS (9 sets, daily range): BP systolic 133–176; BP diastolic 69–85; TEMP 96.6–97.9; O2SAT 95–100
[2023-10-22] MEDS: MEROPENEM INJ 1 GM in IV 1 EA IV SCH ×2 (05:16→18:14)
[2023-10-22] MEDS: INSULIN LISPRO (NovoLOG) PER UNIT SC SCH ×4 (05:16→23:54)
[2023-10-22] MEDS: SUCRALFATE SUSP 1GM/10ML UD PEG SCH ×3 (05:17→22:47)
[2023-10-22] MEDS: LEVOTHYROXINE 88MCG TABLET (0.088 MG) PEG SCH (05:17)
[2023-10-22 06:15] LABS: HEMATOCRIT 33.9 % (36.0-47.0); HEMOGLOBIN 10.2 g/dl (12.0-15.5); MEAN CORPUSCULAR HEMOGLOBIN 29.9 pg (27.0-33.0); MEAN CORPUSCULAR HGB CONC 30.1 g/dl (32.0-36.5); MEAN CORPUSCULAR VOLUME 99.4 fl (80.0-96.0); PLATELET COUNT, AUTOMATED 211 10^3/uL (150-450); RED BLOOD COUNT 3.41 10^6/uL (4.00-5.40); WHITE BLOOD COUNT 12.7 10^3/uL (4.0-10.0)
[2023-10-22 06:43] LABS: BLOOD UREA NITROGEN 39 MG/DL (9-23); CALCIUM LEVEL 8.6 MG/DL (8.3-10.6); CARBON DIOXIDE LEVEL 32 MMOL/L (20-31); CHLORIDE LEVEL 106 MMOL/L (98-107); CREATININE FOR GFR 0.49 MG/DL (0.55-1.30); GLOMERULAR FILTRATION RATE > 60.0 (>32); GLUCOSE, FASTING 122 MG/DL (74-106); POTASSIUM SERUM 3.5 MMOL/L (3.5-5.1); SODIUM LEVEL 144 MMOL/L (136-145)
[2023-10-22 06:48] LABS: EOSINOPHILS 2 % (0-3); LYMPHOCYTES 5 % (16-44); MONOCYTES 2 % (0-5); NEUTROPHILS 90 % (28-66)
[2023-10-22 06:49] LABS: ANISOCYTOSIS 2+; PLATELET CLUMPS SMALL AMT; PLATELET ESTIMATE NORMAL (NORMAL); TEAR DROP CELLS 1+
[2023-10-22 06:50] LABS: POLYCHROMASIA 1+
[2023-10-22] MEDS: IPRATROPIUM 0.5MG/ALBUTEROL 2.5MG INH SOL UD 3ML (DUONEB) NEB SCH ×4 (07:39→20:17)
[2023-10-22] MEDS ORDERED: PINK BISMUTH SUSP 524MG/30ML ORAL SYRINGE PO PRN (09:40)
[2023-10-22] MEDS: ASPIRIN 81MG CHEW TABLET PEG SCH (09:58)
[2023-10-22] MEDS: HEPARIN SOD (PORCINE) 5000UNITS/ML 1ML VIAL/SYRINGE SQ SCH ×2 (09:58→22:48)
[2023-10-22] MEDS: PANTOPRAZOLE 40MG VIAL IV SCH ×2 (09:58→22:48)
[2023-10-22] MEDS: DIGOXIN 0.125 MG TAB PEG SCH (09:58)
[2023-10-22] MEDS: LEVEMIR (INSULIN DETEMIR) 1 UNITS/0.01ML SC SCH (09:59)
[2023-10-22] MEDS: METOPROLOL TART 25 MG TABLET PEG SCH ×2 (09:59→22:47)
[2023-10-22] MEDS: LACTOBACILLUS ACIDOPHILUS CAP (BACID) PO SCH ×3 (12:30→22:47)
[2023-10-22] MEDS: AZITHROMYCIN 250MG TABLET PEG SCH (22:47)
[2023-10-22] MEDS: GABAPENTIN 300 MG CAP PEG SCH (22:47)
[2023-10-22] MEDS ORDERED: ACETAMINOPHEN *IV* 500 MG in IV 1 EA IV PRN (23:25)
[2023-10-22] MEDS ORDERED: ACETAMINOPHEN 325MG/10.15ML UDC PEG PRN (23:40)
[2023-10-23] VITALS (9 sets, daily range): BP systolic 122–192; BP diastolic 68–94; TEMP 97.2–101.6; O2SAT 92–97
[2023-10-23 05:24] LABS: BASO % 0.1 % (0.0-1.0); EOS # 0.1 10^3/uL (0.0-0.5); EOS % 0.6 % (0.0-3.0); HEMATOCRIT 33.2 % (36.0-47.0); LYMPH # 1.2 10^3/uL (1.5-5.0); LYMPH % 10.5 % (24.0-44.0); MEAN CORPUSCULAR HEMOGLOBIN 29.9 pg (27.0-33.0); MEAN CORPUSCULAR HGB CONC 30.1 g/dl (32.0-36.5); MEAN CORPUSCULAR VOLUME 99.1 fl (80.0-96.0); MONO # 0.9 10^3/uL (0.0-0.8); MONO % 7.3 % (2.0-8.0); NEUTROPHILS # 9.5 10^3/uL (1.5-8.5); PLATELET COUNT, AUTOMATED 241 10^3/uL (150-450); RED BLOOD COUNT 3.35 10^6/uL (4.00-5.40); WHITE BLOOD COUNT 11.7 10^3/uL (4.0-10.0)
[2023-10-23] MEDS: MEROPENEM INJ 1 GM in IV 1 EA IV SCH ×2 (05:24→18:07)
[2023-10-23] MEDS: LEVOTHYROXINE 88MCG TABLET (0.088 MG) PEG SCH (05:24)
[2023-10-23] MEDS: SUCRALFATE SUSP 1GM/10ML UD PEG SCH ×3 (05:24→22:56)
[2023-10-23] MEDS: INSULIN LISPRO (NovoLOG) PER UNIT SC SCH ×3 (05:32→17:32)
[2023-10-23 05:49] LABS: BLOOD UREA NITROGEN 39 MG/DL (9-23); CARBON DIOXIDE LEVEL 31 MMOL/L (20-31); CHLORIDE LEVEL 103 MMOL/L (98-107); CREATININE FOR GFR 0.46 MG/DL (0.55-1.30); GLOMERULAR FILTRATION RATE > 60.0 (>32); GLUCOSE, FASTING 142 MG/DL (74-106); POTASSIUM SERUM 4.2 MMOL/L (3.5-5.1); SODIUM LEVEL 140 MMOL/L (136-145)
[2023-10-23] MEDS ORDERED: VANCOMYCIN HCL 750 MG, VIAL MATE ADAPTER 1 EACH in D5W 250 ML IV SCH (07:25)
[2023-10-23] MEDS: LACTOBACILLUS ACIDOPHILUS CAP (BACID) PO SCH ×4 (08:00→22:56)
[2023-10-23] MEDS: IPRATROPIUM 0.5MG/ALBUTEROL 2.5MG INH SOL UD 3ML (DUONEB) NEB SCH ×4 (08:34→20:21)
[2023-10-23] MEDS ORDERED: VANCOMYCIN HCL 1,000 MG, VIAL MATE ADAPTER 1 EACH in D5W 250 ML IV ONE (09:00)
[2023-10-23] MEDS: PANTOPRAZOLE 40MG VIAL IV SCH ×2 (09:57→22:56)
[2023-10-23] MEDS: HEPARIN SOD (PORCINE) 5000UNITS/ML 1ML VIAL/SYRINGE SQ SCH ×2 (09:57→22:56)
[2023-10-23] MEDS: ASPIRIN 81MG CHEW TABLET PEG SCH (09:59)
[2023-10-23] MEDS: DIGOXIN 0.125 MG TAB PEG SCH (10:00)
[2023-10-23] MEDS: LEVEMIR (INSULIN DETEMIR) 1 UNITS/0.01ML SC SCH (10:01)
[2023-10-23] MEDS: METOPROLOL TART 25 MG TABLET PEG SCH ×2 (10:02→23:06)
[2023-10-23] MEDS: SANTYL OINT 30GM TOP SCH (17:22)
[2023-10-23] MEDS: GABAPENTIN 300 MG CAP PEG SCH (22:56)
[2023-10-24] VITALS (8 sets, daily range): BP systolic 138–182; BP diastolic 62–90; TEMP 98.7–100.7; O2SAT 92–96
[2023-10-24] MEDS: INSULIN LISPRO (NovoLOG) PER UNIT SC SCH ×5 (00:58→23:36)
[2023-10-24] MEDS ORDERED: hydrALAZINE 20MG/ML 1ML VIAL IV ONE (02:00)
[2023-10-24] MEDS: LEVOTHYROXINE 88MCG TABLET (0.088 MG) PEG SCH (06:17)
[2023-10-24] MEDS: SUCRALFATE SUSP 1GM/10ML UD PEG SCH ×3 (06:17→20:54)
[2023-10-24] MEDS: MEROPENEM INJ 1 GM in IV 1 EA IV SCH ×2 (06:25→17:34)
[2023-10-24 07:33] LABS: BASO % 0.2 % (0.0-1.0); EOS # 0.1 10^3/uL (0.0-0.5); HEMATOCRIT 34.5 % (36.0-47.0); HEMOGLOBIN 10.5 g/dl (12.0-15.5); LYMPH # 0.8 10^3/uL (1.5-5.0); LYMPH % 9.1 % (24.0-44.0); MEAN CORPUSCULAR HEMOGLOBIN 30.1 pg (27.0-33.0); MEAN CORPUSCULAR HGB CONC 30.4 g/dl (32.0-36.5); MEAN CORPUSCULAR VOLUME 98.9 fl (80.0-96.0); MONO # 0.6 10^3/uL (0.0-0.8); MONO % 7.5 % (2.0-8.0); NEUTROPHILS # 6.7 10^3/uL (1.5-8.5); NEUTROPHILS % 81.4 % (36.0-66.0); PLATELET COUNT, AUTOMATED 242 10^3/uL (150-450); RED BLOOD COUNT 3.49 10^6/uL (4.00-5.40); WHITE BLOOD COUNT 8.2 10^3/uL (4.0-10.0)
[2023-10-24] MEDS ORDERED: VANCOMYCIN HCL 750 MG, VIAL MATE ADAPTER 1 EACH in D5W 250 ML IV SCH (08:00)
[2023-10-24] MEDS: IPRATROPIUM 0.5MG/ALBUTEROL 2.5MG INH SOL UD 3ML (DUONEB) NEB SCH ×4 (08:03→20:13)
[2023-10-24 08:04] LABS: BLOOD UREA NITROGEN 31 MG/DL (9-23); CALCIUM LEVEL 8.8 MG/DL (8.3-10.6); CARBON DIOXIDE LEVEL 31 MMOL/L (20-31); CHLORIDE LEVEL 104 MMOL/L (98-107); CREATININE FOR GFR 0.37 MG/DL (0.55-1.30); GLOMERULAR FILTRATION RATE > 60.0 (>32); GLUCOSE, FASTING 139 MG/DL (74-106); POTASSIUM SERUM 4.2 MMOL/L (3.5-5.1); SODIUM LEVEL 140 MMOL/L (136-145)
[2023-10-24 08:53] LABS: CLOSTRIDIUM DIFFICILE PCR NEGATIVE (NEGATIVE)
[2023-10-24] MEDS ORDERED: VANCOMYCIN HCL 1,000 MG, VIAL MATE ADAPTER 1 EACH in D5W 250 ML IV SCH (09:00)
[2023-10-24] MEDS: LACTOBACILLUS ACIDOPHILUS CAP (BACID) PO SCH ×4 (09:15→20:54)
[2023-10-24] MEDS: HEPARIN SOD (PORCINE) 5000UNITS/ML 1ML VIAL/SYRINGE SQ SCH ×2 (09:15→20:54)
[2023-10-24] MEDS: PANTOPRAZOLE 40MG VIAL IV SCH ×2 (09:15→20:54)
[2023-10-24] MEDS: LEVEMIR (INSULIN DETEMIR) 1 UNITS/0.01ML SC SCH (09:15)
[2023-10-24] MEDS: ASPIRIN 81MG CHEW TABLET PEG SCH (09:16)
[2023-10-24] MEDS: METOPROLOL TART 25 MG TABLET PEG SCH ×2 (09:16→20:55)
[2023-10-24] MEDS: DIGOXIN 0.125 MG TAB PEG SCH (09:16)
[2023-10-24 13:45] LABS: PROCALCITONIN 0.39 ng/ml
[2023-10-24] MEDS: SANTYL OINT 30GM TOP SCH (13:52)
[2023-10-24 19:12] LABS: BODY FLUID CULTURE Not indicated. (.); LEGIONELLA ANTIGEN URINE Negative (Negative); ORGANISM ID Not indicated. (.); SPECIMEN SOURCE Urine (.); URINE STREP PNEUMONIAE ANTIGEN Negative (Negative)
[2023-10-24] MEDS: GABAPENTIN 300 MG CAP PEG SCH (20:54)
[2023-10-25] VITALS (7 sets, daily range): BP systolic 140–156; BP diastolic 68–98; TEMP 99–100.2; O2SAT 93–97
[2023-10-25 06:09] LABS: BASO % 0.2 % (0.0-1.0); EOS # 0.2 10^3/uL (0.0-0.5); EOS % 1.7 % (0.0-3.0); HEMATOCRIT 34.3 % (36.0-47.0); HEMOGLOBIN 10.3 g/dl (12.0-15.5); LYMPH # 0.8 10^3/uL (1.5-5.0); LYMPH % 8.7 % (24.0-44.0); MEAN CORPUSCULAR HEMOGLOBIN 29.3 pg (27.0-33.0); MEAN CORPUSCULAR VOLUME 97.7 fl (80.0-96.0); MONO # 0.9 10^3/uL (0.0-0.8); MONO % 9.1 % (2.0-8.0); NEUTROPHILS # 7.7 10^3/uL (1.5-8.5); NEUTROPHILS % 79.5 % (36.0-66.0); RED BLOOD COUNT 3.51 10^6/uL (4.00-5.40); WHITE BLOOD COUNT 9.6 10^3/uL (4.0-10.0)
[2023-10-25] MEDS: INSULIN LISPRO (NovoLOG) PER UNIT SC SCH ×3 (06:19→18:00)
[2023-10-25] MEDS: MEROPENEM INJ 1 GM in IV 1 EA IV SCH ×2 (06:19→18:35)
[2023-10-25] MEDS: LEVOTHYROXINE 88MCG TABLET (0.088 MG) PEG SCH (06:19)
[2023-10-25] MEDS: SUCRALFATE SUSP 1GM/10ML UD PEG SCH ×3 (06:19→21:14)
[2023-10-25 06:31] LABS: BLOOD UREA NITROGEN 29 MG/DL (9-23); CALCIUM LEVEL 8.8 MG/DL (8.3-10.6); CARBON DIOXIDE LEVEL 27 MMOL/L (20-31); CHLORIDE LEVEL 105 MMOL/L (98-107); GLOMERULAR FILTRATION RATE > 60.0 (>32); GLUCOSE, FASTING 171 MG/DL (74-106); POTASSIUM SERUM 4.4 MMOL/L (3.5-5.1); SODIUM LEVEL 138 MMOL/L (136-145)
[2023-10-25 06:38] LABS: PLATELET COUNT, AUTOMATED 220 10^3/uL (150-450)
[2023-10-25] MEDS: IPRATROPIUM 0.5MG/ALBUTEROL 2.5MG INH SOL UD 3ML (DUONEB) NEB SCH ×4 (07:59→20:34)
[2023-10-25] MEDS: ASPIRIN 81MG CHEW TABLET PEG SCH (10:22)
[2023-10-25] MEDS: LACTOBACILLUS ACIDOPHILUS CAP (BACID) PO SCH ×4 (10:22→21:14)
[2023-10-25] MEDS: DIGOXIN 0.125 MG TAB PEG SCH (10:23)
[2023-10-25] MEDS: METOPROLOL TART 25 MG TABLET PEG SCH ×2 (10:23→21:15)
[2023-10-25] MEDS: PANTOPRAZOLE 40MG VIAL IV SCH ×2 (10:24→21:14)
[2023-10-25] MEDS: HEPARIN SOD (PORCINE) 5000UNITS/ML 1ML VIAL/SYRINGE SQ SCH ×2 (10:24→21:15)
[2023-10-25] MEDS: VANCOMYCIN HCL 750 MG, VIAL MATE ADAPTER 1 EACH in D5W 250 ML IV SCH (10:25)
[2023-10-25] MEDS: LEVEMIR (INSULIN DETEMIR) 1 UNITS/0.01ML SC SCH (10:25)
[2023-10-25] MEDS: SANTYL OINT 30GM TOP SCH (12:08)
[2023-10-25] MEDS ORDERED: ISOVUE-370 76% 100ML VIAL As Ordered ONE (17:32)
[2023-10-25] MEDS: GABAPENTIN 300 MG CAP PEG SCH (21:15)
[2023-10-26] VITALS (7 sets, daily range): BP systolic 128–190; BP diastolic 71–93; TEMP 97.7–99.8; O2SAT 90–98
[2023-10-26] MEDS: INSULIN LISPRO (NovoLOG) PER UNIT SC SCH ×4 (00:30→18:00)
[2023-10-26] MEDS: SUCRALFATE SUSP 1GM/10ML UD PEG SCH (06:00)
[2023-10-26] MEDS: LEVOTHYROXINE 88MCG TABLET (0.088 MG) PEG SCH (06:13)
[2023-10-26] MEDS: MEROPENEM INJ 1 GM in IV 1 EA IV SCH ×2 (06:13→18:40)
[2023-10-26 08:32] LABS: BASO % 0.1 % (0.0-1.0); EOS # 0.1 10^3/uL (0.0-0.5); EOS % 1.6 % (0.0-3.0); HEMATOCRIT 29.9 % (36.0-47.0); HEMOGLOBIN 9.1 g/dl (12.0-15.5); LYMPH # 1.2 10^3/uL (1.5-5.0); LYMPH % 13.4 % (24.0-44.0); MEAN CORPUSCULAR HEMOGLOBIN 29.4 pg (27.0-33.0); MEAN CORPUSCULAR HGB CONC 30.4 g/dl (32.0-36.5); MEAN CORPUSCULAR VOLUME 96.8 fl (80.0-96.0); MONO % 10.6 % (2.0-8.0); NEUTROPHILS # 6.6 10^3/uL (1.5-8.5); NEUTROPHILS % 73.2 % (36.0-66.0); PLATELET COUNT, AUTOMATED 310 10^3/uL (150-450); RED BLOOD COUNT 3.09 10^6/uL (4.00-5.40)
[2023-10-26 08:57] LABS: BLOOD UREA NITROGEN 22 MG/DL (9-23); CALCIUM LEVEL 8.8 MG/DL (8.3-10.6); CARBON DIOXIDE LEVEL 29 MMOL/L (20-31); CHLORIDE LEVEL 103 MMOL/L (98-107); CREATININE FOR GFR 0.37 MG/DL (0.55-1.30); GLOMERULAR FILTRATION RATE > 60.0 (>32); GLUCOSE, FASTING 147 MG/DL (74-106); POTASSIUM SERUM 4.4 MMOL/L (3.5-5.1); SODIUM LEVEL 136 MMOL/L (136-145)
[2023-10-26] MEDS: IPRATROPIUM 0.5MG/ALBUTEROL 2.5MG INH SOL UD 3ML (DUONEB) NEB SCH ×4 (09:04→19:35)
[2023-10-26] MEDS: HEPARIN SOD (PORCINE) 5000UNITS/ML 1ML VIAL/SYRINGE SQ SCH ×2 (09:43→20:53)
[2023-10-26] MEDS: PANTOPRAZOLE 40MG VIAL IV SCH (09:43)
[2023-10-26] MEDS: ASPIRIN 81MG CHEW TABLET PEG SCH (09:44)
[2023-10-26] MEDS: DIGOXIN 0.125 MG TAB PEG SCH (09:44)
[2023-10-26] MEDS: LEVEMIR (INSULIN DETEMIR) 1 UNITS/0.01ML SC SCH (09:44)
[2023-10-26] MEDS: LACTOBACILLUS ACIDOPHILUS CAP (BACID) PO SCH ×4 (09:44→20:52)
[2023-10-26] MEDS: METOPROLOL TART 25 MG TABLET PEG SCH ×2 (09:44→20:52)
[2023-10-26] MEDS: VANCOMYCIN HCL 750 MG, VIAL MATE ADAPTER 1 EACH in D5W 250 ML IV SCH (09:45)
[2023-10-26] MEDS ORDERED: FUROSEMIDE 20MG/2ML VIAL IV ONE (11:20)
[2023-10-26 15:29] LABS: PH BODY FLUID 7.797 UNITS (NOT ESTABLISHED); SOURCE, BODY FLUID pH PLEURAL
[2023-10-26 15:31] LABS: APPEARANCE, BODY FLUID HAZY (CLEAR); PLEURAL FL COLOR PALE YELLOW (COLORLESS); SOURCE, BODY FLUID PLEURAL
[2023-10-26 15:38] LABS: SOURCE, BODY FLUID ALBUMIN PLEURAL
[2023-10-26 15:43] LABS: SOURCE, BODY FLUID GLUCOSE PLEURAL; SOURCE, BODY FLUID TRIG PLEURAL; TRIGLYCERIDE, BODY FLUID 14.99999 MG/DL (NOT ESTABLISHED)
[2023-10-26 15:44] LABS: AMYLASE, BODY FLUID < 20 U/L (NOT ESTABLISHED); LDH, BODY FLUID 134 U/L (NOT ESTABLISHED); SOURCE, BODY FLUID AMYLASE PLEURAL; SOURCE, BODY FLUID LDH PLEURAL
[2023-10-26 15:45] LABS: CHOLESTEROL, BODY FLUID < 25 MG/DL (NOT ESTABLISHED); SOURCE, BODY FLUID CHOL PLEURAL; SOURCE, BODY FLUID TOT PROTEIN PLEURAL; TOTAL PROTEIN, BODY FLUID < 2.0 G/DL (NOT ESTABLISHED)
[2023-10-26] MEDS: SANTYL OINT 30GM TOP SCH (15:45)
[2023-10-26 18:59] LABS: TOTAL PROTEIN 5.2 G/DL (5.7-8.2)
[2023-10-26] MEDS: GABAPENTIN 300 MG CAP PEG SCH (20:52)
[2023-10-27] VITALS: BP 135/70; TEMP 97; O2SAT 95
[2023-10-27] MEDS: INSULIN LISPRO (NovoLOG) PER UNIT SC SCH ×5 (00:08→23:43)
[2023-10-27 04:00] VITALS: BP 165/79; TEMP 97; O2SAT 96
[2023-10-27] MEDS: LEVOTHYROXINE 88MCG TABLET (0.088 MG) PEG SCH (06:47)
[2023-10-27] MEDS: MEROPENEM INJ 1 GM in IV 1 EA IV SCH ×2 (06:47→18:30)
[2023-10-27] MEDS: IPRATROPIUM 0.5MG/ALBUTEROL 2.5MG INH SOL UD 3ML (DUONEB) NEB SCH ×4 (07:05→20:43)
[2023-10-27 07:37] VITALS: BP 135/65; TEMP 97.6; O2SAT 92
[2023-10-27] MEDS: VANCOMYCIN HCL 750 MG, VIAL MATE ADAPTER 1 EACH in D5W 250 ML IV SCH (08:19)
[2023-10-27] MEDS: HEPARIN SOD (PORCINE) 5000UNITS/ML 1ML VIAL/SYRINGE SQ SCH ×2 (08:20→20:28)
[2023-10-27] MEDS: LACTOBACILLUS ACIDOPHILUS CAP (BACID) PO SCH ×4 (08:20→20:28)
[2023-10-27] MEDS: METOPROLOL TART 25 MG TABLET PEG SCH ×2 (08:20→20:28)
[2023-10-27] MEDS: OMEPRAZOLE/SODIUM BICARB 20-840MG 10ML ORAL SYRINGE GT SCH (08:20)
[2023-10-27] MEDS: ASPIRIN 81MG CHEW TABLET PEG SCH (08:20)
[2023-10-27] MEDS: LEVEMIR (INSULIN DETEMIR) 1 UNITS/0.01ML SC SCH (08:20)
[2023-10-27] MEDS: DIGOXIN 0.125 MG TAB PEG SCH (08:20)
[2023-10-27 08:36] LABS: BASO % 0.1 % (0.0-1.0); EOS # 0.1 10^3/uL (0.0-0.5); EOS % 1.5 % (0.0-3.0); HEMATOCRIT 29.1 % (36.0-47.0); LYMPH # 1.4 10^3/uL (1.5-5.0); LYMPH % 16.6 % (24.0-44.0); MEAN CORPUSCULAR HEMOGLOBIN 29.9 pg (27.0-33.0); MEAN CORPUSCULAR HGB CONC 30.9 g/dl (32.0-36.5); MEAN CORPUSCULAR VOLUME 96.7 fl (80.0-96.0); MONO # 0.8 10^3/uL (0.0-0.8); MONO % 9.8 % (2.0-8.0); NEUTROPHILS # 6.1 10^3/uL (1.5-8.5); NEUTROPHILS % 71.1 % (36.0-66.0); PLATELET COUNT, AUTOMATED 362 10^3/uL (150-450); RED BLOOD COUNT 3.01 10^6/uL (4.00-5.40); WHITE BLOOD COUNT 8.5 10^3/uL (4.0-10.0)
[2023-10-27] MEDS ORDERED: PANTOPRAZOLE 40MG TAB (PROTONIX) PO SCH (09:00)
[2023-10-27 09:03] LABS: BLOOD UREA NITROGEN 25 MG/DL (9-23); CALCIUM LEVEL 8.9 MG/DL (8.3-10.6); CARBON DIOXIDE LEVEL 32 MMOL/L (20-31); CHLORIDE LEVEL 103 MMOL/L (98-107); CREATININE FOR GFR 0.42 MG/DL (0.55-1.30); GLOMERULAR FILTRATION RATE > 60.0 (>32); GLUCOSE, FASTING 158 MG/DL (74-106); POTASSIUM SERUM 4.3 MMOL/L (3.5-5.1); SODIUM LEVEL 137 MMOL/L (136-145); TOTAL PROTEIN 5.1 G/DL (5.7-8.2)
[2023-10-27 11:59] VITALS: BP 144/75; TEMP 98.1; O2SAT 94
[2023-10-27] MEDS: SANTYL OINT 30GM TOP SCH (12:52)
[2023-10-27 15:58] VITALS: BP 152/100; TEMP 98; O2SAT 93
[2023-10-27 20:00] VITALS: BP 142/70; TEMP 97.9; O2SAT 93
[2023-10-27] MEDS: GABAPENTIN 300 MG CAP PEG SCH (20:28)
[2023-10-28] VITALS: BP 136/82; TEMP 98.1; O2SAT 92
[2023-10-28 04:00] VITALS: BP 150/88; TEMP 97.7; O2SAT 92
[2023-10-28] MEDS: LEVOTHYROXINE 88MCG TABLET (0.088 MG) PEG SCH (06:12)
[2023-10-28] MEDS: MEROPENEM INJ 1 GM in IV 1 EA IV SCH (06:12)
[2023-10-28] MEDS: INSULIN LISPRO (NovoLOG) PER UNIT SC SCH ×3 (06:13→18:25)
[2023-10-28 07:18] VITALS: BP 141/97; TEMP 97.2; O2SAT 93
[2023-10-28] MEDS: OMEPRAZOLE/SODIUM BICARB 20-840MG 10ML ORAL SYRINGE GT SCH (08:19)
[2023-10-28] MEDS: LEVEMIR (INSULIN DETEMIR) 1 UNITS/0.01ML SC SCH (08:20)
[2023-10-28] MEDS: METOPROLOL TART 25 MG TABLET PEG SCH ×2 (08:21→21:34)
[2023-10-28] MEDS: LACTOBACILLUS ACIDOPHILUS CAP (BACID) PO SCH ×4 (08:21→21:34)
[2023-10-28] MEDS: HEPARIN SOD (PORCINE) 5000UNITS/ML 1ML VIAL/SYRINGE SQ SCH ×2 (08:21→21:35)
[2023-10-28] MEDS: ASPIRIN 81MG CHEW TABLET PEG SCH (08:21)
[2023-10-28] MEDS: DIGOXIN 0.125 MG TAB PEG SCH (08:22)
[2023-10-28] MEDS: SANTYL OINT 30GM TOP SCH (08:24)
[2023-10-28 08:25] LABS: BASO % 0.2 % (0.0-1.0); EOS # 0.1 10^3/uL (0.0-0.5); EOS % 0.8 % (0.0-3.0); HEMATOCRIT 30.3 % (36.0-47.0); HEMOGLOBIN 9.4 g/dl (12.0-15.5); LYMPH # 1.2 10^3/uL (1.5-5.0); LYMPH % 13.7 % (24.0-44.0); MEAN CORPUSCULAR HEMOGLOBIN 29.7 pg (27.0-33.0); MEAN CORPUSCULAR VOLUME 95.6 fl (80.0-96.0); MONO # 0.9 10^3/uL (0.0-0.8); MONO % 9.8 % (2.0-8.0); NEUTROPHILS # 6.7 10^3/uL (1.5-8.5); NEUTROPHILS % 74.6 % (36.0-66.0); PLATELET COUNT, AUTOMATED 400 10^3/uL (150-450); RED BLOOD COUNT 3.17 10^6/uL (4.00-5.40); WHITE BLOOD COUNT 8.9 10^3/uL (4.0-10.0)
[2023-10-28] MEDS: IPRATROPIUM 0.5MG/ALBUTEROL 2.5MG INH SOL UD 3ML (DUONEB) NEB SCH ×4 (08:42→20:45)
[2023-10-28 09:00] LABS: BLOOD UREA NITROGEN 24 MG/DL (9-23); CALCIUM LEVEL 9.2 MG/DL (8.3-10.6); CARBON DIOXIDE LEVEL 31 MMOL/L (20-31); CHLORIDE LEVEL 102 MMOL/L (98-107); CREATININE FOR GFR 0.46 MG/DL (0.55-1.30); GLOMERULAR FILTRATION RATE > 60.0 (>32); GLUCOSE, FASTING 148 MG/DL (74-106); POTASSIUM SERUM 4.6 MMOL/L (3.5-5.1); SODIUM LEVEL 139 MMOL/L (136-145)
[2023-10-28 11:54] VITALS: BP 139/79; TEMP 97.2; O2SAT 91
[2023-10-28 15:38] VITALS: BP 141/77; TEMP 97; O2SAT 94
[2023-10-28 20:00] VITALS: BP 162/81; TEMP 97.2; O2SAT 94
[2023-10-28] MEDS: GABAPENTIN 300 MG CAP PEG SCH (21:34)
[2023-10-29] VITALS (7 sets, daily range): BP systolic 132–156; BP diastolic 72–86; TEMP 97–98.2; O2SAT 90–95
[2023-10-29] MEDS: INSULIN LISPRO (NovoLOG) PER UNIT SC SCH ×4 (00:28→17:50)
[2023-10-29] MEDS: LEVOTHYROXINE 88MCG TABLET (0.088 MG) PEG SCH (06:28)
[2023-10-29] MEDS: IPRATROPIUM 0.5MG/ALBUTEROL 2.5MG INH SOL UD 3ML (DUONEB) NEB SCH ×4 (07:47→20:09)
[2023-10-29] MEDS: METOPROLOL TART 25 MG TABLET PEG SCH ×2 (09:00→22:03)
[2023-10-29] MEDS: SANTYL OINT 30GM TOP SCH (09:00)
[2023-10-29] MEDS: DIGOXIN 0.125 MG TAB PEG SCH (09:00)
[2023-10-29] MEDS: LACTOBACILLUS ACIDOPHILUS CAP (BACID) PO SCH ×4 (10:05→22:04)
[2023-10-29] MEDS: ASPIRIN 81MG CHEW TABLET PEG SCH (10:05)
[2023-10-29] MEDS: OMEPRAZOLE/SODIUM BICARB 20-840MG 10ML ORAL SYRINGE GT SCH (10:05)
[2023-10-29] MEDS: LEVEMIR (INSULIN DETEMIR) 1 UNITS/0.01ML SC SCH (10:05)
[2023-10-29] MEDS: HEPARIN SOD (PORCINE) 5000UNITS/ML 1ML VIAL/SYRINGE SQ SCH ×2 (10:05→22:04)
[2023-10-29] MEDS: GABAPENTIN 300 MG CAP PEG SCH (22:03)
[2023-10-29] MEDS ORDERED: guaiFENesin SYRUP 200MG 10ML UDC PO PRN (23:45)
[2023-10-30] MEDS ORDERED: guaiFENesin SYRUP 200MG 10ML UDC PEG PRN (00:15)
[2023-10-30] MEDS: INSULIN LISPRO (NovoLOG) PER UNIT SC SCH ×3 (00:32→12:49)
[2023-10-30 03:41] VITALS: BP_SYST 154; BP_SYST 240; BP_DIAS 144; BP_DIAS 85; TEMP 97.1; O2SAT 97
[2023-10-30] MEDS ORDERED: hydrALAZINE 20MG/ML 1ML VIAL IV STA (03:52)
[2023-10-30] MEDS: LEVOTHYROXINE 88MCG TABLET (0.088 MG) PEG SCH (05:56)
[2023-10-30] MEDS: IPRATROPIUM 0.5MG/ALBUTEROL 2.5MG INH SOL UD 3ML (DUONEB) NEB SCH ×3 (07:42→15:26)
[2023-10-30] MEDS: LACTOBACILLUS ACIDOPHILUS CAP (BACID) PO SCH ×2 (08:00→11:57)
[2023-10-30 08:20] VITALS: BP 150/64; TEMP 98.4; O2SAT 93
[2023-10-30 08:27] LABS: BASO % 0.3 % (0.0-1.0); EOS # 0.1 10^3/uL (0.0-0.5); HEMATOCRIT 32.7 % (36.0-47.0); HEMOGLOBIN 9.9 g/dl (12.0-15.5); LYMPH # 1.4 10^3/uL (1.5-5.0); LYMPH % 13.5 % (24.0-44.0); MEAN CORPUSCULAR HEMOGLOBIN 29.4 pg (27.0-33.0); MEAN CORPUSCULAR HGB CONC 30.3 g/dl (32.0-36.5); MONO # 0.9 10^3/uL (0.0-0.8); MONO % 8.6 % (2.0-8.0); PLATELET COUNT, AUTOMATED 471 10^3/uL (150-450); RED BLOOD COUNT 3.37 10^6/uL (4.00-5.40); WHITE BLOOD COUNT 10.5 10^3/uL (4.0-10.0)
[2023-10-30 08:47] LABS: BLOOD UREA NITROGEN 23 MG/DL (9-23); CALCIUM LEVEL 9.3 MG/DL (8.3-10.6); CARBON DIOXIDE LEVEL 33 MMOL/L (20-31); CHLORIDE LEVEL 102 MMOL/L (98-107); CREATININE FOR GFR 0.47 MG/DL (0.55-1.30); GLOMERULAR FILTRATION RATE > 60.0 (>32); GLUCOSE, FASTING 154 MG/DL (74-106); POTASSIUM SERUM 4.8 MMOL/L (3.5-5.1); SODIUM LEVEL 139 MMOL/L (136-145)
[2023-10-30] MEDS: DIGOXIN 0.125 MG TAB PEG SCH (09:59)
[2023-10-30] MEDS: ASPIRIN 81MG CHEW TABLET PEG SCH (09:59)
[2023-10-30 10:00] VITALS: BP 150/64
[2023-10-30] MEDS: HEPARIN SOD (PORCINE) 5000UNITS/ML 1ML VIAL/SYRINGE SQ SCH (10:00)
[2023-10-30] MEDS: OMEPRAZOLE/SODIUM BICARB 20-840MG 10ML ORAL SYRINGE GT SCH (10:00)
[2023-10-30] MEDS: METOPROLOL TART 25 MG TABLET PEG SCH (10:00)
[2023-10-30] MEDS: LEVEMIR (INSULIN DETEMIR) 1 UNITS/0.01ML SC SCH (10:00)
[2023-10-30] MEDS: SANTYL OINT 30GM TOP SCH (10:01)
[2023-10-30] MEDS ORDERED: D5W/0.45% SODIUM CHLORIDE 1,000 ML IV SCH (12:00)
[2023-10-30 12:26] VITALS: BP 156/68; TEMP 97.2
[2023-10-30 16:20] VITALS: BP 142/76; TEMP 97.1; O2SAT 93
== END 2023-10-30 21:15 | disposition expired | DRG 871 ==
LOC: M ED 22:17 → M ED INP 10-20 01:04 → M MSPAV 10-20 04:00 → M PCU 10-20 13:42
PROVIDERS: ADMIT Internal Medicine; ATTEND Internal Medicine
PROC: 0W993ZZ Drainage of Right Pleural Cavity, Percutaneous Approach (ICD-10-PCS; principal; 2023-10-27)
DX: A41.9 Sepsis, unspecified organism (principal); J69.0 Pneumonitis due to inhalation of food and vomit; J96.01 Acute respiratory failure with hypoxia; L89.153 Pressure ulcer of sacral region, stage 3; E43 Unspecified severe protein-calorie malnutrition; E87.0 Hyperosmolality and hypernatremia; I69.354 Hemiplegia and hemiparesis following cerebral infarction affecting left non-dominant side; I50.32 Chronic diastolic (congestive) heart failure; N39.0 Urinary tract infection, site not specified; J90 Pleural effusion, not elsewhere classified; E87.1 Hypo-osmolality and hyponatremia; R65.20 Severe sepsis without septic shock; L89.220 Pressure ulcer of left hip, unstageable; L89.110 Pressure ulcer of right upper back, unstageable; L89.120 Pressure ulcer of left upper back, unstageable; L89.130 Pressure ulcer of right lower back, unstageable; F03.90 Unspecified dementia, unspecified severity, without behavioral disturbance, psychotic disturbance, mood disturbance, and anxiety; E03.9 Hypothyroidism, unspecified; E11.65 Type 2 diabetes mellitus with hyperglycemia; Z93.1 Gastrostomy status; I48.91 Unspecified atrial fibrillation; I25.10 Atherosclerotic heart disease of native coronary artery without angina pectoris; I11.0 Hypertensive heart disease with heart failure; J44.9 Chronic obstructive pulmonary disease, unspecified; I69.391 Dysphagia following cerebral infarction; K21.9 Gastro-esophageal reflux disease without esophagitis; Z79.899 Other long term (current) drug therapy; Z79.82 Long term (current) use of aspirin; Z79.4 Long term (current) use of insulin; B96.20 Unspecified Escherichia coli [E. coli] as the cause of diseases classified elsewhere; B96.1 Klebsiella pneumoniae [K. pneumoniae] as the cause of diseases classified elsewhere; R91.1 Solitary pulmonary nodule; D50.9 Iron deficiency anemia, unspecified; Z95.2 Presence of prosthetic heart valve; Z98.49 Cataract extraction status, unspecified eye; B96.5 Pseudomonas (aeruginosa) (mallei) (pseudomallei) as the cause of diseases classified elsewhere